=== PATIENT | female | born 1980 | race Caucasian/White ===

== ENCOUNTER 2017-08-21 02:21 | Emergency (ER) | payer OTHER, SELFPAY ==
[2017-08-21 02:35] VITALS: BP 118/75; PULSE 107; RESP 16; TEMP 36.8; BMI 21.4
--- NOTE | 2017-08-21 02:38 | ED_ITS ---
HPI - Female Genitourinary General Chief complaint: Urogenital-Female Stated complaint: RIGHT FLANK PAIN BLOOD IN URINE Time Seen by Provider: 08/21/17 02:30 Source: patient Mode of arrival: ambulatory Limitations: no limitations History of Present Illness HPI Narrative: Otherwise healthy 37-year-old female here for evaluation of which he thinks is a right-sided kidney stone. She states that the pain started had several hours before arrival here to the emergency department. She states it feels like 1 of her prior kidney stones. She states that she has had lithotripsy in the past. Has never had a stent before. Has had some nausea no vomiting. Is breast feeding. Related Data Allergies Allergy/AdvReac Type Severity Reaction Status Date / Time prochlorperazine Allergy Severe ANAPHYLAXIS Verified 08/21/17 02:40 Review of Systems Constitutional Denies chills, Denies fever(s), Denies lethargy and Denies weakness Cardiovascular Denies chest pain, Denies palpitations and Denies dyspnea Respiratory Denies cough and Denies dyspnea Gastrointestinal Gastrointestinal: Denies abdominal pain, Reports diarrhea, Reports nausea and Denies vomiting Genitourinary Denies dysuria, Reports flank pain, Denies urinary incontinence, Denies urinary hesitancy, Denies urinary urgency and Denies vaginal discharge Integumentary/Breasts Denies pruritus and Denies rash Neurologic Denies weakness Endocrine Denies palpitations Hematologic/Lymphatic Denies easy bruising [facility] Surgical History History of third molar tooth extraction History of tonsillectomy Status post appendectomy Status post loop electrosurgical excision procedure (LEEP) of cervix Exam Initial Vital Signs Initial Vital Signs: Vital Signs Temperature 98.2 F 08/21/17 02:35 Pulse Rate 107 H 08/21/17 02:35 Respiratory Rate 16 08/21/17 02:35 Blood Pressure 118/75 08/21/17 02:35 HENMT Head: normal to inspection Resp Effort & Inspection: normal respiratory effort Skin Lesions: no lesions Rashes: no rashes Neuro General: alert, awake and oriented x3 Extrem General: normal to inspection and full ROM Course Orders Ordered: ED Orders 08/21/17 02:55 Basic Metabolic Panel Stat Vital Signs - 8 hr 08/21/17 02:35 Temperature 98.2 F Pulse Rate 107 H Respiratory Rate 16 Blood Pressure 118/75 MDM - Female Genitourinary Lab Data Attestation: I reviewed the patient's lab results. Result diagrams: 08/21/17 02:55 Lab Results 08/21/17 Range/Units 02:55 Sodium 146 H (137-145) mmol/L Potassium 4.1 (3.4-5.1) mmol/L Chloride 106 (98-107) mmol/L Carbon Dioxide 23 (22-32) mmol/L BUN 20 H (7-17) mg/dL Creatinine 0.80 (0.52-1.04) mg/dL Estimated GFR > 60.0 (>60) mL/min BUN/Creatinine Ratio 25.0 H (6-22) Glucose 96 (70-100) mg/dL Calcium 9.6 (8.4-10.2) mg/dL [facility] Narrative Medical decision making narrative: No signs of urinary tract infection. Creatinine is unremarkable. Had a discussion with the patient regarding her symptoms. We did discuss IV medicines to include opioid pain medicines and nonsteroidal anti-inflammatories and also lidocaine. We did talk that all of these medicines are excreted in the breast milk. Informed her that with the opioid pain medication and the nonsteroidal he would probably okay to continue to breast feed however with the lidocaine at would recommend a pump and dump for the next 24 hr. Patient stated that she would rather not receive any IV pain medication because of this. Did offer her oral medicines here which she declined. I offered her an IM injection of Toradol which she declined. Offered nausea medication which she also declined. Will hold on a CT scan seeing his house she has a history of renal stones and this feels like a renal stone to her. Offered patient medication to take at home to include nausea medicine and also pain medication which she declined. Will discharge patient home. Patient was given return precautions. She expressed understanding and agreement with plan Discharge Plan Departure Patient Disposition: Home, Self-Care Clinical Impression: Renal colic Instructions: Kidney Stones -- Adult Activity Restrictions/Additional Instructions: Recommend that you increase your fluid intake. Return to the emergency department for any new symptoms, worsening symptoms, fevers, worsening pain, inability to tolerate oral intake or any other concerning symptoms
[2017-08-21 03:13] LABS: Blood Urea Nitrogen 20 mg/dL (7-17); Calcium 9.6 mg/dL (8.4-10.2); Carbon Dioxide 23 mmol/L (22-32); Chloride 106 mmol/L (98-107); Estimated Glomerular Filt Rate > 60.0 mL/min (>60); Glucose 96 mg/dL (70-100); HEMOLYSIS < 15 (0-50); Potassium 4.1 mmol/L (3.4-5.1); Sodium 146 mmol/L (137-145)
[2017-08-21 04:27] VITALS: BP 102/68; PULSE 81; RESP 16; TEMP 36.7; O2SAT 99
== END 2017-08-21 04:28 | disposition home or self-care (01) ==
PROVIDERS: Emergency Provider Emergency Medicine; Family Provider Family Medicine; PCP Family Medicine
DX: N23 Unspecified renal colic (principal)
CPT/HCPCS: 36415; 80048; 81003; 81025; 99282; 99283

== ENCOUNTER 2017-10-31 10:47 | Day surgery (SDC) | payer OTHER, SELFPAY ==
[2017-10-26 09:24] VITALS: BMI 20.9
[2017-10-31 11:03] VITALS: BP 113/74; PULSE 74; RESP 16; TEMP 36.6; O2SAT 98; BMI 20.9
[2017-10-31] MEDS: LACTATED RINGERS 1,000 ML 100 ML IV (11:27)
--- NOTE | 2017-10-31 12:14 | PM.PREOP ---
Pre-operative Note Interval Note Pre-op Check: Yes History & Physical exam performed today by Physician Changes: No
[2017-10-31] MEDS: MIDAZOLAM 2 MG/2 ML VIAL 1 MG IV (12:42)
--- NOTE | 2017-10-31 13:15 | SUR.OPER ---
Lithotomy on padded OR bed, head on pillow, arms secured on padded arm boards at <90 degrees abduction. Legs secured in padded yellow fins stirrups.
[2017-10-31] MEDS: BUPIVACAINE 0.5% W/ EPI (PF) VIAL 30 ML INJ (13:20)
[2017-10-31 13:37] VITALS: BP 122/80; PULSE 91; RESP 12; TEMP 37.1; O2SAT 96
[2017-10-31 13:42] VITALS: BP 122/80; PULSE 86; RESP 13; TEMP 36.8; O2SAT 98
[2017-10-31] MEDS: OXYCODONE/ACETAMINOPHEN 5/325 TABLET 1 TAB PO (13:55)
[2017-10-31 14:01] VITALS: BP 132/77; PULSE 13; RESP 20; TEMP 36.8; O2SAT 99
[2017-10-31] MEDS: KETOROLAC 30 MG/ML VIAL IV (14:25)
[2017-10-31 14:46] VITALS: BP 106/68; PULSE 52; RESP 12; TEMP 36.6; O2SAT 100
--- NOTE | 2017-11-10 19:08 | P.OP_ITS ---
Operative Date/Time/Diagnoses Date of procedure: 10/31/17 Time of procedure: 13:00 Pre-op diagnosis: Pelvic pain Severe dysmenorrhea Post-op diagnosis: same Procedure: Procedures Operation Date: 10/31/17 12:00 Actual Procedures Side Surgeon p Diagnostic Laparoscopy Not Applicable Haylee Nogueira MD Diagnostic laparoscopy Indications: Pelvic pain Severe dysmenorrhea Surgeon: Haylee Nogueira Anesthesia Type: General Operative Notes Findings: 7 week size slightly retroverted uterus Normal tubes and ovaries Pelvic congestion throughout Adenomyosis of the uterus Normal appendix, gallbladder, and liver Closure Type: primary Specimen(s): none Estimated blood loss (mL): 5 Blood products transfused: none Procedure in detail: After informed consent was obtained, the patient was taken to the operating room where she was placed in the dorsal supine position. After adequate general endotracheal anesthesia was achieved, she was placed in the dorsal lithotomy position, and prepped and draped in the usual sterile fashion. A time-out was performed. A bivalve speculum was placed into the vagina , and the anterior lip of the cervix grasped with a single-tooth tenaculum. The cervical os was sequentially dilated until the Zumi uterine manipulator could pass easily into the endometrial cavity. Single-tooth tenaculum was removed from the anterior lip of the cervix. The bivalve speculum was removed from the vagina. Attention was then turned to the abdomen where 6 cc of 0.5% Marcaine with epinephrine were injected in the umbilical fold. A 5 mm incision was made. The Veress needle was placed into the peritoneal cavity, and its placement confirmed by aspiration drop test. The abdominal cavity was insufflated with 3.1 L of CO2. The Veress needle was removed, and a 5 mm trocar was placed without difficulty. 6 cc of 0.5% Marcaine with epinephrine were injected above the pubic symphysis. A 2nd 5 mm incision was made. A 2nd 5 mm trocar was placed under direct visualization. The probe was used to identify both tubes and ovaries as well as the ovarian fossa. There was no evidence of endometriosis. There were no adhesions. She did have prominent vasculature throughout the pelvis consistent with pelvic congestion. The uterus was soft consistent with adenomyosis. The liver, gallbladder, and appendix were normal. The tubes and ovaries were normal. The instruments were removed from the abdomen. The CO2 was allowed to escape. The incisions were repaired with 4 0 undyed Vicryl in a subcuticular fashion. Steri-Strips, 2 x 2 , and op site were placed. The Zumi uterine manipulator was removed from the uterus. Sponge, lap, and instrument counts were correct x2. The patient tolerated the procedure well, and was taken to PACU in stable condition. Complications: none Post-operative Condition: stable Disposition: PACU Plan for aftercare: Home after recovery
== END 2017-10-31 15:00 | disposition home or self-care (01) ==
PROVIDERS: Family Provider Family Medicine; PCP Family Medicine; Visit Provider Obstetrics & Gynecology
PROC: (CPT 49320; principal; 2017-10-31 12:00)
DX: N94.6 Dysmenorrhea, unspecified (principal)
CPT/HCPCS: 49320; J0330; J1100; J1885; J2250; J2405; J2704; J3010

== ENCOUNTER 2018-04-19 23:38 | Emergency (ER) | payer OTHER, SELFPAY ==
[2018-04-20] MEDS: KETOROLAC 60 MG/2 ML VIAL 30 MG IV (00:01)
[2018-04-20] MEDS: ONDANSETRON 4 MG/2 ML INJ IV (00:02)
[2018-04-20] MEDS: SODIUM CHLORIDE 0.9% 1,000 ML 1000 ML IV ×2 (00:02→01:00)
[2018-04-20 00:12] LABS: Add Manual Diff / Slide Review NO; Basophils Absolute Auto 100 /uL (0-100); Basophils Percent Auto 0.7 % (0-2); Eosinophils Absolute Auto 100 /uL (0-450); Eosinophils Percent Auto 0.6 % (2-4); Hematocrit 43.8 % (36-46); Hemoglobin 14.7 g/dL (12.0-16.0); Lymphocytes Absolute Auto 3000 /uL (1100-4500); Lymphocytes Percent Auto 34.3 % (25-40); Mean Corpuscular HGB Conc 33.6 % (30-36); Mean Corpuscular Hemoglobin 32.1 PG (26-34); Mean Corpuscular Volume 95.3 fL (80-100); Monocytes Absolute Auto 500 /uL (0-900); Neutrophils Absolute Auto 5000 /uL (1500-7000); Neutrophils Percent Auto 58.4 % (50-75); Platelet Count 409 X10^3/uL (150-400); Red Blood Cell Count 4.59 X10^6/uL (4.0-5.2); Red Cell Distribution Width 13.1 % (11.6-14.8); White Blood Cell Count 8.6 X10^3/uL (4.5-11.0)
[2018-04-20 00:18] LABS: Alanine Aminotransferase 21 IU/L (9-52); Albumin 5.1 g/dL (3.5-5.0); Albumin Globulin Ratio 1.5 (1.0-2.8); Alkaline Phosphatase 42 U/L (38-126); Aspartate Aminotransferase 27 IU/L (14-36); BUN Creatinine Ratio 18.8 (6-22); Bilirubin Total 0.3 mg/dL (0.2-1.3); Blood Urea Nitrogen 15 mg/dL (7-17); Calcium 9.5 mg/dL (8.4-10.2); Carbon Dioxide 25 mmol/L (22-32); Chloride 108 mmol/L (98-107); Estimated Glomerular Filt Rate > 60.0 mL/min (>60); Globulin 3.5 g/dL (1.7-4.1); Glucose 118 mg/dL (70-100); HEMOLYSIS 22 (0-50); Lipase 84 U/L (23-300); Potassium 3.7 mmol/L (3.4-5.1); Sodium 148 mmol/L (137-145); Total Protein 8.6 g/dL (6.3-8.2)
[2018-04-20] MEDS: LORazepam 2 MG/ML SYRINGE 0.5 MG IV (00:26)
[2018-04-20] MEDS: SODIUM CHLORIDE 0.9% IV (00:27)
[2018-04-20] MEDS: LIDOCAINE 2% IV (00:27)
--- NOTE | 2018-04-20 00:33 | ED.BACK ---
HPI - Back Pain/Injury General Chief Complaint: Back Pain/Injury Stated Complaint: KIDNEY PAIN X1 HOUR Time Seen by Provider: 04/19/18 23:42 Source: patient Mode of arrival: ambulatory Limitations: no limitations History of Present Illness HPI Narrative: Patient is a 37-year-old female who presents with right flank pain. She has a history of kidney stones of this feels like a kidney stone. She is unable to find any comfortable position this started suddenly this evening. She has thrown up 3 times prior to arrival. She is admits to drinking alcohol also prior to arrival. Denies any fever painful frequent urination. No medications prior to arrival MD Complaint: back pain (Right flank) Related Data Home Medications Medication Instructions Recorded Confirmed No Known Home Medications 10/24/17 Previous Rx's Medication Instructions Recorded oxycodone-acetaminophen [Percocet] 2 tab PO Q4-6H PRN #20 tab 10/31/17 Allergies Allergy/AdvReac Type Severity Reaction Status Date / Time prochlorperazine Allergy Intermediate Hallucinati Verified 10/31/17 11:26 ng Review of Systems Review of Systems ROS Unobtainable: All systems reviewed & are unremarkable except as noted in HPI and below Constitutional Denies chills, Denies fever(s), Denies lethargy and Denies weakness Cardiovascular Denies chest pain, Denies irregular heart rhythm, Denies lightheadedness, Denies palpitations, Denies dyspnea, Denies dyspnea on exertion and Denies orthopnea Respiratory Denies cough, Denies dyspnea, Denies dyspnea on exertion and Denies wheezing Genitourinary Reports as per HPI Integumentary/Breasts Denies pruritus, Denies erythema, Denies rash and Denies wounds Neurologic Denies weakness Endocrine Denies palpitations Allergic/Immunologic Denies wheezing [facility] Medical History Anxiety (Acute) Depression (Acute) Exercise-induced asthma (Acute) Kidney stone on right side (Acute) Severe dysmenorrhea (Acute) Surgical History History of third molar tooth extraction (Resolved) History of tonsillectomy (Resolved) Status post appendectomy (Resolved) Status post loop electrosurgical excision procedure (LEEP) of cervix (Resolved) Social History marital status: household members: family Smoking Status: Never smoker alcohol intake: current substance use type: does not use Social History marital status: household members: family Smoking Status: Never smoker alcohol intake: current substance use type: does not use Exam Initial Vital Signs Initial Vital Signs: Vital Signs Pulse Rate 60 04/20/18 00:46 Respiratory Rate 20 04/20/18 00:46 Blood Pressure 99/65 04/20/18 00:46 Pulse Oximetry 94 04/20/18 00:46 GENERAL: Patient tearful pacing room unable to sit holding right side HEENT: Head atraumatic,EOMI, pupils reactive, CARDIOVASCULAR: Regular rate and rhythm without murmurs, rubs or gallops. RESPIRATORY: Breath sounds equal bilaterally, no wheezes rales or rhonchi. ABDOMEN: Soft, nontender. Normoactive bowel sounds all 4 quadrants. No guarding or rebound. : Tender right CVA EXTREMITIES: Normal range of motion, no clubbing or edema. Neurovascularly intact NEUROLOGICAL: Alert and oriented x4.Normal gait and speech. Cranial nerves II through XII grossly intact. SKIN: Warm, dry, no laceration, no petechiae, no rashes or lesions. Course Orders Ordered: ED Orders 04/19/18 23:50 Complete Blood Count AUTO DIFF Stat Comprehensive Metabolic Panel Stat Lipase Stat Discontinued Medications Sodium Chloride (Normal Saline 0.9%) 1,000 mls @ 1,000 mls/hr IV CONT ARNAV Last Infusion: 04/20/18 01:07 Dose: 1,000 mls/hr Admin: 04/20/18 00:02 Dose: 1,000 mls/hr Lidocaine HCl 4.1 ml/ Sodium (Chloride) 54.1 mls @ 324.6 mls/hr IV NOW ONE Stop: 04/20/18 00:22 Last Infusion: 04/20/18 00:47 Dose: 324.6 mls/hr Admin: 04/20/18 00:27 Dose: 324.6 mls/hr Sodium Chloride (Normal Saline 0.9%) 1,000 mls @ 1,000 mls/hr IV BOLUS ONE Stop: 04/20/18 01:47 Last Infusion: 04/20/18 02:50 Dose: 1,000 mls/hr Admin: 04/20/18 01:00 Dose: 1,000 mls/hr Ketorolac Tromethamine (Toradol) 30 mg IV NOW ONE Stop: 04/19/18 23:47 Last Admin: 04/20/18 00:01 Dose: 30 mg Lorazepam (Ativan) 0.5 mg IV NOW ONE Stop: 04/20/18 00:22 Last Admin: 04/20/18 00:26 Dose: 0.5 mg Ondansetron HCl (Zofran) 4 mg IV NOW ONE Stop: 04/19/18 23:47 Last Admin: 04/20/18 00:02 Dose: 4 mg Vital Signs - 8 hr 04/20/18 00:46 04/20/18 02:51 Pulse Rate 60 60 Respiratory Rate 20 14 Blood Pressure 96/51 L Blood Pressure [Left Arm] 99/65 Pulse Oximetry 94 99 MDM - Back Pain/Injury Lab Data Attestation: I reviewed the patient's lab results. Result diagrams: 04/19/18 23:50 04/19/18 23:50 Lab Results 04/19/18 04/19/18 Range/Units 23:50 23:50 WBC 8.6 (4.5-11.0) X10^3/uL RBC 4.59 (4.0-5.2) X10^6/uL Hgb 14.7 (12.0-16.0) g/dL Hct 43.8 (36-46) % MCV 95.3 (80-100) fL MCH 32.1 (26-34) PG MCHC 33.6 (30-36) % RDW 13.1 (11.6-14.8) % Plt Count 409 H (150-400) X10^3/uL Neut % (Auto) 58.4 (50-75) % Lymph % (Auto) 34.3 (25-40) % [place] % (Auto) 6.0 (3-14) % Eos % (Auto) 0.6 L (2-4) % Baso % (Auto) 0.7 (0-2) % Neut # (Auto) 5000 (9382-1275) /uL Lymph # (Auto) 3000 (6868-9604) /uL [place] # (Auto) 500 (0-900) /uL Eos # (Auto) 100 (0-450) /uL Baso # (Auto) 100 (0-100) /uL Sodium 148 H (137-145) mmol/L Potassium 3.7 (3.4-5.1) mmol/L Chloride 108 H (98-107) mmol/L Carbon Dioxide 25 (22-32) mmol/L BUN 15 (7-17) mg/dL Creatinine 0.80 (0.52-1.04) mg/dL Estimated GFR > 60.0 (>60) mL/min BUN/Creatinine Ratio 18.8 (6-22) Glucose 118 H (70-100) mg/dL Calcium 9.5 (8.4-10.2) mg/dL Total Bilirubin 0.3 (0.2-1.3) mg/dL AST 27 (14-36) IU/L ALT 21 (9-52) IU/L Alkaline Phosphatase 42 (38-126) U/L Total Protein 8.6 H (6.3-8.2) g/dL Albumin 5.1 H (3.5-5.0) g/dL Globulin 3.5 (1.7-4.1) g/dL Albumin/Globulin Ratio 1.5 (1.0-2.8) Lipase 84 (23-300) U/L MDM Narrative Medical decision making narrative: Patient has known history of kidney stones. This feels like all previous kidney stones this 1 May be a little bit worse. Toradol did not help she really is unable to get comfortable. She does not respond well to narcotic medications it would prefer not to have those. He he is given Ativan to help calm her his which she responded well to it and IV lidocaine. No patient is sleeping and has received 2 L of IV fluid. Patient sleeping for a few hours she does arouse with Ativan still slightly drowsy but able to stand wants to go home and sleep in her own bed. Discharge Plan Departure Patient Disposition: Home Clinical Impression: Renal colic on right side Discharge Date/Time: 04/20/18 02:51 Interventions: ED Discharge Assessment Last Done: 04/20/18 02:51 Instructions: DI for Kidney Stones Activity Restrictions/Additional Instructions: *You have been diagnosed with kidney stone *What to do: Increase fluid intake *Continue to take medications as directed Motrin 800 mg every 8 hr if needed for pain *Follow up with your primary care provider in 2-3 days *Return to ER if you should have any new, worsening or concerning symptoms Prescriptions: No Action No Known Home Medications RF: 0 oxycodone-acetaminophen [Percocet] 5-325 mg tablet 2 tab PO Q4-6H PRN (Reason: pain) Qty: 20 RF: 0 Referrals: Lilia Evans MD [Primary Care Provider] -
[2018-04-20 00:46] VITALS: BP 99/65; PULSE 60; RESP 20; O2SAT 94
--- NOTE | 2018-04-20 01:11 | PC.NURSE ---
Pt states Right Flank pain with N/V onset 2144, feels like kidney stone, hx of kidney stones. Pt is unable to remain still or find position of comfort. Denies fever, or frequent painful urination. Pt states she had been drinking alchol prior to arrival and denies taking any medications.
[2018-04-20 02:51] VITALS: BP 96/51; PULSE 60; RESP 14; O2SAT 99
== END 2018-04-20 02:51 | disposition home or self-care (01) ==
PROVIDERS: Emergency Provider Emergency Medicine; Family Provider Family Medicine; PCP Family Medicine
DX: N23 Unspecified renal colic (principal)
CPT/HCPCS: 36591; 80053; 83690; 85025; 96361; 96374; 96375; 99283; 99284; J1885; J2060; J2405

== ENCOUNTER 2018-06-30 22:42 | Emergency (ER) | payer OTHER, SELFPAY ==
[2018-06-30 22:40] VITALS: BP 136/92; PULSE 124; RESP 20; TEMP 36.3; O2SAT 98; BMI 20.5
--- NOTE | 2018-06-30 22:47 | ED_ITS ---
HPI - Female Genitourinary General Chief complaint: Urogenital-Female Stated complaint: Kidney Stones Time Seen by Provider: 06/30/18 22:42 Source: patient Mode of arrival: EMS Limitations: no limitations History of Present Illness HPI Narrative: 38-year-old female with a stated history of kidney stones. She states that she was at work function this evening. She did admit to having some alcohol. She states she had a sudden onset of right-sided pain consistent with a prior history of kidney stones. She arrived by EMS. Received pain medication by EMS. She states that she reported that this did improve her symptoms somewhat however they are starting to return. She stated that in the past she has had to have lithotripsy however that was many years ago and since then she has passed all of her prior stones. Related Data Home Medications Medication Instructions Recorded Confirmed No Known Home Medications 10/24/17 Allergies Allergy/AdvReac Type Severity Reaction Status Date / Time prochlorperazine Allergy Intermediate Hallucinati Verified 10/31/17 11:26 ng Review of Systems Constitutional Denies fever(s) and Denies headache(s) ENT Ears, Nose, Mouth, and Throat: Denies headache(s) Cardiovascular Denies chest pain and Denies dyspnea Respiratory Denies dyspnea Gastrointestinal Gastrointestinal: Denies abdominal pain and Reports nausea Genitourinary Reports flank pain and Reports urinary urgency Musculoskeletal Denies myalgias and Denies arthralgias Integumentary/Breasts Denies rash Neurologic Denies headache(s) Allergic/Immunologic Denies urticaria [facility] Medical History Anxiety (Acute) Depression (Acute) Exercise-induced asthma (Acute) Kidney stone on right side (Acute) Severe dysmenorrhea (Acute) Surgical History History of third molar tooth extraction (Resolved) History of tonsillectomy (Resolved) Status post appendectomy (Resolved) Status post loop electrosurgical excision procedure (LEEP) of cervix (Resolved) Social History marital status: household members: family Smoking Status: Never smoker alcohol intake: current substance use type: does not use Social History marital status: household members: family Smoking Status: Never smoker alcohol intake: current substance use type: does not use Exam Initial Vital Signs Initial Vital Signs: Vital Signs Temperature 97.4 F L 06/30/18 22:40 Pulse Rate 124 H 06/30/18 22:40 Respiratory Rate 20 06/30/18 22:40 Blood Pressure 136/92 H 06/30/18 22:40 Pulse Oximetry 98 06/30/18 22:40 Const General: cooperative, No comfortable (Uncomfortable) and well developed Orientation: alert and awake HENMT Head: normal to inspection and normocephalic Resp Effort & Inspection: normal respiratory effort Cardio Rate: tachycardic Back/Spine/Pelvis Back: CVA tenderness right Skin Lesions: no lesions Rashes: no rashes Neuro General: alert and awake Cognition: normal cognition Psych Appearance: grossly normal and well kempt Course Orders Ordered: ED Orders 06/30/18 22:58 Complete Blood Count AUTO DIFF Stat Comprehensive Metabolic Panel Stat Lipase Stat Discontinued Medications Lidocaine HCl 4.1 ml/ Sodium (Chloride) 54.1 mls @ 324.6 mls/hr IV NOW ONE Stop: 06/30/18 22:47 Last Infusion: 06/30/18 23:44 Dose: 0 mls/hr Admin: 06/30/18 23:14 Dose: 324.6 mls/hr Sodium Chloride (Normal Saline 0.9%) 1,000 mls @ 1,000 mls/hr IV BOLUS ONE Stop: 07/01/18 00:44 Last Infusion: 07/01/18 01:59 Dose: 0 mls/hr Admin: 06/30/18 23:46 Dose: 1,000 mls/hr Ketorolac Tromethamine (Toradol) 30 mg IV NOW ONE Stop: 06/30/18 22:47 Last Admin: 06/30/18 23:01 Dose: 30 mg Lorazepam (Ativan) 0.5 mg PO NOW ONE Stop: 07/01/18 01:38 Last Admin: 07/01/18 01:58 Dose: 0.5 mg Morphine Sulfate (Morphine) 2 mg IV NOW ONE Stop: 07/01/18 01:07 Last Admin: 07/01/18 01:12 Dose: 2 mg Vital Signs - 8 hr 07/01/18 00:00 07/01/18 02:00 07/01/18 05:33 Pulse Rate 98 H 99 H 99 H Respiratory Rate 18 16 18 Blood Pressure [Left Arm] 120/70 118/70 115/67 Pulse Oximetry 98 98 98 MDM - Female Genitourinary Lab Data Attestation: I reviewed the patient's lab results. Result diagrams: 06/30/18 22:58 06/30/18 22:58 Lab Results 06/30/18 06/30/18 Range/Units 22:58 22:58 WBC 8.1 (4.5-11.0) X10^3/uL RBC 4.66 (4.0-5.2) X10^6/uL Hgb 15.2 (12.0-16.0) g/dL Hct 44.7 (36-46) % MCV 95.9 (80-100) fL MCH 32.5 (26-34) PG MCHC 34.0 (30-36) % RDW 12.9 (11.6-14.8) % Plt Count 367 (150-400) X10^3/uL Neut % (Auto) 72.2 (50-75) % Lymph % (Auto) 21.5 L (25-40) % [place] % (Auto) 5.4 (3-14) % Eos % (Auto) 0.2 L (2-4) % Baso % (Auto) 0.7 (0-2) % Neut # (Auto) 5900 (2045-3942) /uL Lymph # (Auto) 1700 (4017-0814) /uL [place] # (Auto) 400 (0-900) /uL Eos # (Auto) 0 (0-450) /uL Baso # (Auto) 100 (0-100) /uL Sodium 143 (137-145) mmol/L Potassium 4.0 (3.4-5.1) mmol/L Chloride 106 (98-107) mmol/L Carbon Dioxide 24 (22-32) mmol/L BUN 14 (7-17) mg/dL Creatinine 0.70 (0.52-1.04) mg/dL Estimated GFR > 60.0 (>60) mL/min BUN/Creatinine Ratio 20.0 (6-22) Glucose 107 H (70-100) mg/dL Calcium 9.1 (8.4-10.2) mg/dL Total Bilirubin 0.3 (0.2-1.3) mg/dL AST 26 (14-36) IU/L ALT 19 (9-52) IU/L Alkaline Phosphatase 51 (38-126) U/L Total Protein 8.5 H (6.3-8.2) g/dL Albumin 5.1 H (3.5-5.0) g/dL Globulin 3.4 (1.7-4.1) g/dL Albumin/Globulin Ratio 1.5 (1.0-2.8) Lipase 99 (23-300) U/L Urine Dip Bedside Urine Glucose Negative Bedside Urine Bilirubin - Negative Bedside Urine Ketone - Negative Urine Specific [place] 1.015 Bedside Urine Occult Blood - Negative Bedside Urine pH 6.0 Bedside Urine Protein - Negative Bedside Urine Urobilinogen - Negative Bedside Urine Nitrite - Negative Bedside Urine Leukocytes - Negative Esterase MDM Narrative Medical decision making narrative: Patient was given Toradol and lidocaine here in the emergency department and she reported improvement of her symptoms. It then returned. She was given some pain medication which improved her symptoms for short period of time. She was then given oral Ativan to see if this did not help. She does have a history of kidney stones. She states this feels like kidney stones. Given the lack of infection in her urine and a normal kidney function we decided to hold on any CT scan. Patient did sleep here in the em ergency department overnight. Her pain continued to improve. Discharge Plan Departure Patient Disposition: Home Clinical Impression: Renal colic on right side Instructions: DI for Kidney Stones, DI for Flank Pain Activity Restrictions/Additional Instructions: Contact your primary care doctor for a follow-up. Return to the emergency department for any new or worsening symptoms. you can take ibuprofen. Prescriptions: No Action No Known Home Medications RF: 0 Referrals: Lilia Evans MD [Primary Care Provider] -
[2018-06-30] MEDS: KETOROLAC 60 MG/2 ML VIAL 30 MG IV (23:01)
[2018-06-30 23:12] LABS: Add Manual Diff / Slide Review NO; Basophils Absolute Auto 100 /uL (0-100); Basophils Percent Auto 0.7 % (0-2); Eosinophils Absolute Auto 0 /uL (0-450); Eosinophils Percent Auto 0.2 % (2-4); Hematocrit 44.7 % (36-46); Hemoglobin 15.2 g/dL (12.0-16.0); Lymphocytes Absolute Auto 1700 /uL (1100-4500); Lymphocytes Percent Auto 21.5 % (25-40); Mean Corpuscular Hemoglobin 32.5 PG (26-34); Mean Corpuscular Volume 95.9 fL (80-100); Monocytes Absolute Auto 400 /uL (0-900); Monocytes Percent Auto 5.4 % (3-14); Neutrophils Absolute Auto 5900 /uL (1500-7000); Neutrophils Percent Auto 72.2 % (50-75); Platelet Count 367 X10^3/uL (150-400); Red Blood Cell Count 4.66 X10^6/uL (4.0-5.2); Red Cell Distribution Width 12.9 % (11.6-14.8); White Blood Cell Count 8.1 X10^3/uL (4.5-11.0)
[2018-06-30] MEDS: LIDOCAINE 2% IV (23:14)
[2018-06-30] MEDS: SODIUM CHLORIDE 0.9% IV (23:14)
[2018-06-30 23:22] LABS: Alanine Aminotransferase 19 IU/L (9-52); Albumin 5.1 g/dL (3.5-5.0); Albumin Globulin Ratio 1.5 (1.0-2.8); Alkaline Phosphatase 51 U/L (38-126); Aspartate Aminotransferase 26 IU/L (14-36); Bilirubin Total 0.3 mg/dL (0.2-1.3); Blood Urea Nitrogen 14 mg/dL (7-17); Calcium 9.1 mg/dL (8.4-10.2); Carbon Dioxide 24 mmol/L (22-32); Chloride 106 mmol/L (98-107); Estimated Glomerular Filt Rate > 60.0 mL/min (>60); Globulin 3.4 g/dL (1.7-4.1); Glucose 107 mg/dL (70-100); HEMOLYSIS < 15 (0-50); Lipase 99 U/L (23-300); Sodium 143 mmol/L (137-145); Total Protein 8.5 g/dL (6.3-8.2)
[2018-06-30] MEDS: SODIUM CHLORIDE 0.9% 1,000 ML 1000 ML IV (23:46)
[2018-07-01] VITALS: BP 120/70; PULSE 98; RESP 18; O2SAT 98
[2018-07-01] MEDS: MORPHINE 4 MG/ML INJ 2 MG IV (01:12)
[2018-07-01] MEDS: LORazepam 0.5 MG TABLET PO (01:58)
[2018-07-01 02:00] VITALS: BP 118/70; PULSE 99; RESP 16; O2SAT 98
--- NOTE | 2018-07-01 03:00 | PC.NURSE ---
Pt resting with eyes closed. Arouses to verbal stimuli.
[2018-07-01 05:33] VITALS: BP 115/67; PULSE 99; RESP 18; O2SAT 98
--- NOTE | 2018-07-01 05:34 | PC.NURSE ---
Pt requested to be called, no answer.
== END 2018-07-01 06:44 | disposition home or self-care (01) ==
PROVIDERS: Emergency Provider Emergency Medicine; PCP Family Medicine
DX: N23 Unspecified renal colic (principal)
CPT/HCPCS: 36415; 80053; 81003; 83690; 85025; 96361; 96365; 96375; 99283; 99284; J1885; J2270

== ENCOUNTER 2018-08-09 20:42 | Emergency (ER) | payer OTHER, SELFPAY ==
[2018-08-09 20:49] VITALS: BP 121/86; PULSE 78; RESP 18; TEMP 36.6; O2SAT 98
--- NOTE | 2018-08-09 21:29 | ED_ITS ---
HPI - Abdominal Pain General Chief Complaint: Abdominal Pain Stated Complaint: ABD PAIN Time Seen by Provider: 08/09/18 21:16 Source: patient Mode of arrival: ambulatory Limitations: no limitations History of Present Illness HPI narrative: Patient is a 38-year-old female. Here for evaluation of bilateral lower abdominal/pelvic pain. Patient is not currently on control. She states that yesterday she finished her menstrual cycle. She states that today she had a fairly sudden onset of bilateral lower abdominal pain and then vaginal bleeding. She states she has soaked through 3 pads over the past several hours. Did have couple episodes of diarrhea earlier today. No urinary symptoms. No vomiting. Related Data Home Medications Medication Instructions Recorded Confirmed No Known Home Medications 10/24/17 Allergies Allergy/AdvReac Type Severity Reaction Status Date / Time prochlorperazine Allergy Intermediate Hallucinati Verified 10/31/17 11:26 ng Review of Systems Constitutional Denies fever(s) Cardiovascular Denies chest pain and Denies dyspnea Respiratory Denies dyspnea Gastrointestinal Gastrointestinal: Reports abdominal pain, Reports diarrhea and Denies vomiting Genitourinary Reports dysuria (Earlier today but that is resolved), Reports pelvic pain and Reports vaginal discharge Musculoskeletal Reports back pain (Lower back) Integumentary/Breasts Denies rash Hematologic/Lymphatic Denies easy bleeding and Denies easy bruising [facility] Medical History Anxiety (Acute) Depression (Acute) Exercise-induced asthma (Acute) Kidney stone on right side (Acute) Severe dysmenorrhea (Acute) Surgical History History of third molar tooth extraction (Resolved) History of tonsillectomy (Resolved) Status post appendectomy (Resolved) Status post loop electrosurgical excision procedure (LEEP) of cervix (Resolved) Social History marital status: household members: family Smoking Status: Never smoker alcohol intake: current substance use type: does not use Social History marital status: household members: family Smoking Status: Never smoker alcohol intake: current substance use type: does not use Exam Initial Vital Signs Initial Vital Signs: Vital Signs Temperature 97.8 F 08/09/18 20:49 Pulse Rate 78 08/09/18 20:49 Respiratory Rate 18 08/09/18 20:49 Blood Pressure 121/86 08/09/18 20:49 Pulse Oximetry 98 08/09/18 20:49 Const General: cooperative and well groomed Orientation: alert, awake and oriented x3 HENMT Head: normal to inspection and normocephalic Resp Effort & Inspection: normal respiratory effort Auscultation: clear to auscultation bilaterally Cardio Rate: regular rate Rhythm: regular rhythm GI Inspection: non-distended Palpation: soft, No firm and tender (Lower abdomen/adnexa bilateral) Skin Lesions: no lesions Rashes: no rashes Neuro General: alert and awake Cognition: normal cognition Speech: speech normal Extrem General: normal to inspection and capillary refill normal Psych Appearance: grossly normal and well kempt Course Orders Ordered: ED Orders 08/09/18 21:20 Complete Blood Count AUTO DIFF Stat Comprehensive Metabolic Panel Stat Lipase Stat 08/09/18 21:36 US pelvic complete Stat 08/09/18 22:18 Urine Culture Stat Urine Microscopic Stat Discontinued Medications Sodium Chloride (Normal Saline 0.9%) 1,000 mls @ 1,000 mls/hr IV BOLUS ONE Stop: 08/09/18 22:34 Last Infusion: 08/09/18 22:40 Dose: 0 mls/hr Admin: 08/09/18 21:48 Dose: 1,000 mls/hr Ketorolac Tromethamine (Toradol) 15 mg IV NOW ONE Stop: 08/09/18 22:36 Last Admin: 08/09/18 22:40 Dose: 15 mg Morphine Sulfate (Morphine) 4 mg IV NOW ONE Stop: 08/09/18 21:36 Last Admin: 08/09/18 21:48 Dose: 4 mg Ondansetron HCl (Zofran) 4 mg IV NOW ONE Stop: 08/09/18 21:53 Last Admin: 08/09/18 21:53 Dose: 4 mg Vital Signs - 8 hr 08/09/18 20:49 08/09/18 22:30 Temperature 97.8 F Pulse Rate 78 78 Respiratory Rate 18 16 Blood Pressure 121/86 Blood Pressure [Left Arm] 127/80 Pulse Oximetry 98 100 MDM - Abdominal Pain Medical Records Attestation: I reviewed the patient's medical records. Lab Data Attestation: I reviewed the patient's lab results. Result diagrams: 08/09/18 21:20 08/09/18 21:20 Lab Results 08/09/18 08/09/18 08/09/18 Range/Units 21:20 21:20 22:18 WBC 7.9 (4.5-11.0) X10^3/uL RBC 4.36 (4.0-5.2) X10^6/uL Hgb 14.3 (12.0-16.0) g/dL Hct 41.2 (36-46) % MCV 94.5 (80-100) fL MCH 32.9 (26-34) PG MCHC 34.8 (30-36) % RDW 13.0 (11.6-14.8) % Plt Count 360 (150-400) X10^3/uL Neut % (Auto) 62.4 (50-75) % Lymph % (Auto) 29.0 (25-40) % [place] % (Auto) 7.0 (3-14) % Eos % (Auto) 0.8 L (2-4) % Baso % (Auto) 0.8 (0-2) % Neut # (Auto) 4900 (0724-8481) /uL Lymph # (Auto) 2300 (1663-2927) /uL [place] # (Auto) 600 (0-900) /uL Eos # (Auto) 100 (0-450) /uL Baso # (Auto) 100 (0-100) /uL Sodium 143 (137-145) mmol/L Potassium 3.9 (3.4-5.1) mmol/L Chloride 107 (98-107) mmol/L Carbon Dioxide 22 (22-32) mmol/L BUN 16 (7-17) mg/dL Creatinine 0.80 (0.52-1.04) mg/dL Estimated GFR > 60.0 (>60) mL/min BUN/Creatinine Ratio 20.0 (6-22) Glucose 93 (70-100) mg/dL Calcium 9.9 (8.4-10.2) mg/dL Total Bilirubin 0.5 (0.2-1.3) mg/dL AST 26 (14-36) IU/L ALT 15 (9-52) IU/L Alkaline Phosphatase 46 (38-126) U/L Total Protein 8.0 (6.3-8.2) g/dL Albumin 4.8 (3.5-5.0) g/dL Globulin 3.2 (1.7-4.1) g/dL Albumin/Globulin Ratio 1.5 (1.0-2.8) Lipase 93 (23-300) U/L Urine RBC 0-1/hpf (0-5/HPF) Urine WBC 1-5/hpf (0-5/HPF) Ur Squamous Epith Cells 1-5 /hpf (0-5/HPF) Urine Bacteria Many (>30) H (None) Ur Culture Indicated? Specimen cultured Point of care testing: Point of Care Testing Test Results Negative Urine Dip Bedside Urine Glucose Negative Bedside Urine Bilirubin - Negative Bedside Urine Ketone - Negative Urine Specific [place] 1.025 Bedside Urine Occult Blood + Bedside Urine pH 6.0 Bedside Urine Protein - Negative Bedside Urine Urobilinogen - Negative Bedside Urine Nitrite - Negative Bedside Urine Leukocytes + 70 Esterase Imaging Data US - abdomen: Radiologist's impression: Mildly prominent follicles in bilateral ovaries. Larger 1.1 cm on the left. Internal echoes in these follicles is felt to be artifactual. If symptoms persist close follow-up in 60 weeks is recommended for re-evaluation. MDM Narrative Medical decision making narrative: Patient's labs unremarkable. She does have bacteria in her urine did have some dysuria earlier today however there is no other signs of a urinary tract infection. Will wait for the culture to results before starting any antibiotics. Patient was informed that a culture was pending and that we would call if any antibiotics are needed. The ultrasound was unremarkable. Patient reported an improvement in her symptoms after Toradol. She has had dysmenorrhea in the past according to review of the notes. test is negative. I feel that her symptoms are adnexal and not abdominal. She has had an appendectomy in the past. Will hold on a CT scan of the abdomen for now. Will hold on further workup. Patient was given return precautions and follow-up instructions. She expressed understanding and agreement with plan. Discharge Plan Departure Patient Disposition: Home Clinical Impression: Pelvic pain, Vaginal bleeding Discharge Date/Time: 08/09/18 23:15 Interventions: ED Discharge Assessment Last Done: 08/09/18 23:17 Instructions: DI for Pelvic Pain Activity Restrictions/Additional Instructions: The ultrasound here in the emergency department was unremarkable for any acute issues. You did have bacteria in her urine. A urine culture is pending at the time of your discharge. We will call you for any positive results. I do recommend that you contact your primary provider and also your customer engineering specialist provider. Return to the emergency department for any new or worsening symptoms. Prescriptions: No Action No Known Home Medications RF: 0 Referrals: Lilia Evans MD [Primary Care Provider] -
--- NOTE | 2018-08-09 21:36 | DI.US.S_ITS ---
PROCEDURE: US PELVIC COMPLETE INDICATIONS: VAGINAL BLEEDING; PAIN TECHNIQUE: Real-time scanning was performed of the pelvic organs, with image documentation. Additional endovaginal scanning was necessary due to incomplete visualization of the adnexal and endometrial structures by transabdominal scanning. COMPARISON: [facility], , PELVIC COMPLETE, 10/02/2013, 8:33. FINDINGS: Transabdominal scanning: Limited scanning through the kidneys shows no hydronephrosis. No pathologic free abdominal or pelvic fluid. Endovaginal scanning: Uterus: Uterus is normal in size at 8.7 x 3.6 x 5.1 cm. The endometrium measures 5.4 mm in combined thickness. Ovaries: Normal ovary measuring 2.9 x 1.1 x 1.9 cm on the right and 3.3 x 1.4 x 1.5 cm on the left. No adnexal masses. IMPRESSION: No source for menorrhagia identified. Dictated by: Kike ROCA Interpreted: Julien Harper MD on 08/10/2018 at 8:47 Approved by: Julien Harper M.D. on 08/10/2018 at 11:38
[2018-08-09 21:43] LABS: Add Manual Diff / Slide Review NO; Basophils Absolute Auto 100 /uL (0-100); Basophils Percent Auto 0.8 % (0-2); Eosinophils Absolute Auto 100 /uL (0-450); Eosinophils Percent Auto 0.8 % (2-4); Hematocrit 41.2 % (36-46); Hemoglobin 14.3 g/dL (12.0-16.0); Lymphocytes Absolute Auto 2300 /uL (1100-4500); Mean Corpuscular HGB Conc 34.8 % (30-36); Mean Corpuscular Hemoglobin 32.9 PG (26-34); Mean Corpuscular Volume 94.5 fL (80-100); Monocytes Absolute Auto 600 /uL (0-900); Neutrophils Absolute Auto 4900 /uL (1500-7000); Neutrophils Percent Auto 62.4 % (50-75); Platelet Count 360 X10^3/uL (150-400); Red Blood Cell Count 4.36 X10^6/uL (4.0-5.2); White Blood Cell Count 7.9 X10^3/uL (4.5-11.0)
[2018-08-09 21:48] LABS: Alanine Aminotransferase 15 IU/L (9-52); Albumin 4.8 g/dL (3.5-5.0); Albumin Globulin Ratio 1.5 (1.0-2.8); Alkaline Phosphatase 46 U/L (38-126); Aspartate Aminotransferase 26 IU/L (14-36); Bilirubin Total 0.5 mg/dL (0.2-1.3); Blood Urea Nitrogen 16 mg/dL (7-17); Calcium 9.9 mg/dL (8.4-10.2); Carbon Dioxide 22 mmol/L (22-32); Chloride 107 mmol/L (98-107); Estimated Glomerular Filt Rate > 60.0 mL/min (>60); Globulin 3.2 g/dL (1.7-4.1); Glucose 93 mg/dL (70-100); HEMOLYSIS < 15 (0-50); Lipase 93 U/L (23-300); Potassium 3.9 mmol/L (3.4-5.1); Sodium 143 mmol/L (137-145)
[2018-08-09] MEDS: MORPHINE 4 MG/ML INJ IV (21:48)
[2018-08-09] MEDS: SODIUM CHLORIDE 0.9% 1,000 ML 1000 ML IV (21:48)
[2018-08-09] MEDS: ONDANSETRON 4 MG/2 ML INJ IV (21:53)
[2018-08-09 22:30] VITALS: BP 127/80; PULSE 78; RESP 16; O2SAT 100
[2018-08-09] MEDS: KETOROLAC 60 MG/2 ML VIAL 15 MG IV (22:40)
[2018-08-09 22:45] LABS: Bacteria Urine Many (>30); Culture Indicated Urine Specimen Cultured; RBC Urine 0-1/HPF (0-5/HPF); Squamous Epithelial Cell Urine 1-5 /HPF (0-5/HPF); WBC Urine 1-5/HPF (0-5/HPF)
== END 2018-08-09 23:15 | disposition home or self-care (01) ==
PROVIDERS: Emergency Provider Emergency Medicine; PCP Family Medicine
DX: R10.2 Pelvic and perineal pain (principal); N93.9 Abnormal uterine and vaginal bleeding, unspecified
CPT/HCPCS: 36591; 76830; 76856; 80053; 81003; 81015; 81025; 83690; 85025; 87077; 87086; 96361; 96374; 96375; 99283; 99284; J1885; J2270; J2405

== ENCOUNTER → 2018-12-08 10:55 | Outpatient (CLI) | payer OTHER, SELFPAY ==
--- NOTE | 2018-12-08 | DI.RAD.S_ITS ---
PROCEDURE: XR CERVICAL SPINE 2V OR 3V INDICATIONS: NECK PAIN TECHNIQUE: 3 view(s) of the cervical spine were acquired. COMPARISON: None. FINDINGS: Bones: No fractures or dislocations to the C7 level. The lateral masses of C1 appear intact on the odontoid view. No suspicious bony lesions. Straightening of the normal lordotic curvature. No definite disc space narrowing Soft tissues: No prevertebral soft tissue swelling. IMPRESSION: Straightening of the normal lordotic curvature. Mild diffuse facet arthropathy Dictated by: Brandyn Rosa M.D. on 12/08/2018 at 11:43 Approved by: Brandyn Rosa M.D. on 12/08/2018 at 11:44
== END ==
PROVIDERS: PCP Family Medicine; Visit Provider Family Medicine
DX: M54.2 Cervicalgia (principal); M47.812 Spondylosis without myelopathy or radiculopathy, cervical region
CPT/HCPCS: 72040

== ENCOUNTER → 2019-09-13 15:45 | Outpatient (CLI) | payer OTHER, SELFPAY ==
--- NOTE | 2019-09-13 15:46 | DI.US.S_ITS ---
PROCEDURE: US PELVIC COMPLETE INDICATIONS: RULE OUT LEFT OVARIAN CYST AND EVALUATE FOR ADENOMYOSIS TECHNIQUE: Real-time scanning was performed of the pelvic organs, with image documentation. Additional endovaginal scanning was necessary due to incomplete visualization of the adnexal and endometrial structures by transabdominal scanning. COMPARISON: [facility], , US PELVIC COMPLETE, 08/09/2018, 22:01. FINDINGS: Transabdominal scanning: Limited scanning through the kidneys shows no hydronephrosis. No pathologic free abdominal or pelvic fluid. Endovaginal scanning: Uterus: Uterus is normal in size at 7.8 x 3.3 x 4.2 cm. The endometrium measures 5-6 mm in combined thickness. Endometrium appears heterogeneous, technically non-specific. Ovaries: Right ovary measures 2.8 x 1.5 a 1.5 cm. The left ovary measures 2.6 x 1.2 x 1.4 cm. Incidental physiologic follicular change IMPRESSION: Overall, unremarkable examination as above. For further increase in study sensitivity for adenomyosis consider further evaluation with gynecologic protocol MRI, as clinically warranted. Dictated by: Brandyn Rosa M.D. on 09/13/2019 at 16:44 Approved by: Brandyn Rosa M.D. on 09/13/2019 at 16:47
== END ==
PROVIDERS: PCP Family Medicine; Referring Provider Family Medicine; Visit Provider Obstetrics & Gynecology
DX: R10.2 Pelvic and perineal pain (principal)
CPT/HCPCS: 76830; 76856

== ENCOUNTER → 2019-11-16 09:05 | Outpatient (CLI) | payer OTHER, SELFPAY ==
--- NOTE | 2019-11-16 | DI.US.S_ITS ---
PROCEDURE: US ABDOMEN COMPLETE INDICATIONS: Abdominal pain TECHNIQUE: Real-time scanning was performed of the abdominal and retroperitoneal organs, with image documentation. COMPARISON: [facility], US, US PELVIC COMPLETE, 09/13/2019, 15:59. [facility], CT, KIDNEY/ URETER/BLADDER, 04/07/2013, 3:29. FINDINGS: Liver: Liver is normal in size and homogeneous in echotexture. Gallbladder: No findings of gallstones or sludge are seen. The gallbladder wall is not thickened, measuring 3 mm or less. No specific pericholecystic fluid is seen. The sonographic Hassan sign is negative. Biliary ducts: Intrahepatic bile ducts are non-dilated. Extrahepatic bile duct caliber measures 4 mm. Normal is 6-7 mm or less in diameter, or 10 mm or less post-cholecystectomy. Pancreas: Visualized portions of the pancreas are sonographically normal. Spleen: Spleen is normal in size and homogeneous in echotexture. Kidneys: Kidneys are normal in size and echotexture. Right kidney measures 11.3 cm long; left kidney measures 11 cm long. No hydronephrosis can be seen. The previously described kidney stones are not well seen on this ultrasound. No solid masses. The renal cortex measures within normal limits for thickness. Aorta: Visualized aorta is normal in caliber at less than 3 cm. Iliacs: Proximal common iliac arteries are normal in caliber at less than 2.5 cm. IVC: Intrahepatic inferior vena cava is patent. Miscellaneous: No free abdominal fluid. IMPRESSION: The gallbladder demonstrates a normal sonographic appearance. No biliary dilatation is seen. No imaging explanation is found for this patient's presenting symptoms. Dictated by: Ian Mazariegos M.D. on 11/16/2019 at 9:47 Approved by: Ian Mazariegos M.D. on 11/16/2019 at 9:49
== END ==
PROVIDERS: PCP Family Medicine; Referring Provider Family Medicine; Visit Provider Family Medicine
DX: R10.9 Unspecified abdominal pain (principal)
CPT/HCPCS: 76700

== ENCOUNTER → 2020-01-29 10:30 | Outpatient (CLI) | payer OTHER, SELFPAY ==
[2020-01-29 12:33] LABS: Cancer Antigen 125 45.6 U/mL (0-35)
[2020-01-31 12:09] LABS: Human Epididymis Prot 4 54.5 pmol/L (0.0-63.6)
== END ==
PROVIDERS: PCP Family Medicine; Referring Provider Obstetrics & Gynecology; Visit Provider Obstetrics & Gynecology
DX: N83.292 Other ovarian cyst, left side (principal); R97.1 Elevated cancer antigen 125 [CA 125]
CPT/HCPCS: 36415; 86304; 86305

== ENCOUNTER → 2020-02-29 11:08 | Outpatient (CLI) | payer OTHER, SELFPAY ==
[2020-02-29 12:35] LABS: COVID19 -Nasal RAPID Negative (Negative)
== END ==
PROVIDERS: PCP Family Medicine; Visit Provider Obstetrics & Gynecology
DX: Z01.812 Encounter for preprocedural laboratory examination (principal); Z20.828 Contact with and (suspected) exposure to other viral communicable diseases
CPT/HCPCS: 87635; C9803

== ENCOUNTER 2020-03-03 06:28 | Day surgery (SDC) | payer OTHER, SELFPAY ==
[2020-02-28 12:27] VITALS: BMI 22.8
[2020-03-03] VITALS (10 sets, daily range): BP systolic 100–132; BP diastolic 54–83; PULSE 79–94; RESP 12–17; TEMP 36.3–37.2; O2SAT 94–100; BMI 22.8
--- NOTE | 2020-03-03 | PATH_ITS ---
[facility] Accession Number: [id number] . 01 Material submitted: . uterus - UTERUS AND BILATERAL FALLOPIAN TUBES . 02 Diagnosis: Uterus and Bilateral Falloipian Tubes, Supracervical Hysterctomy and Bilateral Salpingectomy: Adenomyosis. Secretory endometrium with no diagnostic abnormality. Bilateral fimbriated fallopian tubes with no diagnostic abnormality. No evidence of neoplasm. [facility] 03/05/2020 1349 Local . 02 Comment: As part of routine quality assurance/r&d lab technician, Dr. Zavaleta has reviewed block A2 of this case and agrees with the diagnosis of adenomyosis. . 02 Electronically signed: . Virgil Lopez MD, PhD, Pathologist NPI- [id number] . 01 Gross description: . The specimen is received in formalin, labeled uterus, bilateral fallopian tubes and consists of a 62 gram fragment of undisrupted uterus and bilateral fallopian tubes. The specimen measures 8.0 x 6.5 x 5.0 cm in aggregate. The serosa is georges-pink and smooth. A cervix is not identified. Sectioning reveals a georges-pink glistening endometrium measuring 0.1 cm in thickness. The myometrium is georges-pink and trabeculated measuring 2.0 cm in thickness. The fallopian tube average 6.0 cm in length x 1.0 cm in diameter and displays a georges-pink to pink-purple smooth to focally disrupted serosa. Sectioning reveals a georges mucosa and a stellate lumen measuring 0.2 cm in diameter. [employer] Floor Installer sections are submitted. . A1-A3 - [place] Floor Installer endomyometrium. A4-A5 - Fallopian tube with bisected fimbria and central cross-sections. A6-A7 - Other fallopian tube with bisected fimbria and central cross-sections. ([id number]) /[facility] 03/04/2020 1730 Local . 02 Pathologist provided ICD-10: N80.0, N92.0, N94.6 . 02 CPT . 269608 Performed at: 01 [facility] [address] [id number] MD Rodney Aguero MD Phone: [phone] Performed at: 02 [facility] [address] [place], [place] [id number] MD Ekta Zavaleta MD Phone: [phone]
--- NOTE | 2020-03-03 06:55 | PM.PREOP ---
Pre-operative Note COVID-19 COVID-19 status: Negative Result date/Date tested (Pos, Neg/Pending): 02/29/20 Interval Note History & Physical reviewed/Exam performed by Physician: Yes Changes to H&P: No H&P completed within 30 days and has changed as indicated here:: 02/26/20
[2020-03-03] MEDS: LACTATED RINGERS 1,000 ML 42 ML IV (07:06)
[2020-03-03] MEDS: SCOPOLAMINE 1 PATCH TOP (07:09)
[2020-03-03] MEDS: ACETAMINOPHEN 325 MG TABLET 975 MG PO (07:09)
[2020-03-03] MEDS: CEFAZOLIN 2 GM/100 ML FROZ.PIGGY IV (08:03)
--- NOTE | 2020-03-03 08:40 | SUR.OPER ---
Lithotomy on padded OR bed. [place] Pad Positioner under torso. Head on pillow, arms padded and tucked at sides. Legs secured in padded yellow fins stirrups.
[2020-03-03] MEDS: BUPIVACAINE 0.5% W/ EPI (PF) 30 ML VIAL INJ (08:47)
[2020-03-03] MEDS: ROPIVACAINE 0.2% PF 2 MG/ML 10ML AMP 20 ML INJ (08:48)
--- NOTE | 2020-03-03 09:39 | P.OP_ITS ---
Operative Date/Time/Diagnoses Date of procedure: 03/03/20 Time of procedure: 09:40 Pre-op diagnosis: Left ovarian cyst Pelvic pain Severe dysmenorrhea Menorrhagia Pelvic congestion Post-op diagnosis: same Procedure & Clinicians Procedure: Procedures Operation Date: 03/03/20 07:45 Actual Procedures Side Surgeon p Laparoscopic Supracervical Hysterectomy bilateral sapingectomy, excision left ovarian cyst Haylee Nogueira MD Indications: Left ovarian cyst Pelvic pain Severe dysmenorrhea Menorrhagia Pelvic congestion Surgeon: Haylee Nogueira Stem Maker: Hafsa Cartwright Anesthesia Type: General and Local Operative Notes Findings: Eight week size anteverted uterus Normal tubes bilaterally Normal right ovary Left ovary with 3 cm x 3 cm hemorrhagic cyst Significant dilated veins in the pelvis No evidence of endometriosis Normal liver and gallbladder Status post appendectomy Closure Type: primary Specimen(s): left tube, right tube and uterus Applied: catheter (Removed at the end of the case) Estimated blood loss (mL): 5 Blood products transfused: none Procedure in detail: The patient was taken to the operating room where she was placed in the dorsal supine position. After adequate general endotracheal anesthesia was achieved, she was placed in the dorsal lithotomy position, and prepped and draped in the usual sterile fashion. A timeout was performed. A bivalve speculum was placed into the vagina and the anterior lip of the cervix grasped with a single-tooth tenaculum. The cervical os was sequentially dilated until the ZUMI uterine manipulator could pass easily into the endometrial cavity. The single-tooth tenaculum was removed from the anterior lip of the cervix, and the bivalve speculum was removed from the vagina. Attention was then turned to the abdomen where 6 mL of half percent Marcaine with epinephrine were injected in the umbilical fold. A 5 mm incision was made. The Verhees needle was placed into the peritoneal cavity, and its placement confirmed by aspiration and drop test. The Verhees needle was removed. A 5 mm trocar was placed without difficulty. 2 other incisions were made midway between the pubic symphysis and umbilicus after 5 mL of half percent Marcaine with epinephrine were injected. These were 5 mm incisions. Two 5 mm trochars were placed under direct visualization. The right tube was grasped with an atraumatic grasper. Using the plasma kinetic with settings of 40 W the mesosalpinx was cauterized and cut all the way down to the cornua of the uterus. The cornua of the uterus was then grasped with an atraumatic grasper. The utero-ovarian ligaments were cauterized and cut by the assistant refinery operator. The round ligament and broad ligament was cauterized and cut with plasma kinetic, by the assistant refinery operator. Hemostasis was achieved. The bladder flap was created, by the assistant refinery operator, using the plasma kinetic with cautery and cut residential across. The uterine arteries on the right side were extensively cauterized with plasma kinetic, by the assistant refinery operator. All of this was repeated on the left side by the primary surgeon. The remainder of the bladder flap was created using the plasma kinetic, and the bladder taken down off the lower uterine segment and cervix. Using the Endoloop, with the assistant refinery operator the pulling the tubes through the loop and lifting the uterus out of the pelvis, the cervix was amputated from the uterus 2 cm above the uterosacral ligaments, after the ZUMI uterine manipulator was removed from the uterus. There was a small amount of bleeding noted from the right edge of the cervix, and this was cauterized for hemostasis. The endocervical canal was extensively cauterized with the PlasmaKinetic. A sponge stick was placed into the vagina. 6 mL of half percent Marcaine with epinephrine were injected above the pubic symphysis. A 10 mm incision was made. The fascial incision was extended with retraction from the assistant refinery operator. A 10 mm trocar was placed. An Endobag was placed through the suprapubic trocar and the uterus and tubes were placed into the Endobag. The trocar was removed. The Navarro placed into the endobag after the uterus was grabbed with a Ronaldo. The uterus and tubes were hand morcellated in approximately 2 pieces. The Navarro was removed from the incision. The Endobag was removed from the peritoneal cavity. The suprapubic incision was closed on the fascia with 0 Vicryl in a running suture with the assistant refinery operator retracting. The abdomen was re-insufflated with carbon dioxide gas. The pelvis was copiously irrigated with warm normal saline. No bleeding was noted. 20 cc of 0.2% ropivacaine were placed over the pedicles. The instruments were removed from the abdomen. The CO2 was allowed to escape. All of the incisions were closed with 4-0 Biosyn in a subcuticular fashion. Steri- Strips were placed. Allevyn dressings were placed. The moistened sponge stick was removed from the vagina. Sponge, lap, and instrument counts were correct x- 2. The patient tolerated the procedure well, was taken to PACU in stable condition. Complications: none Post-operative Condition: stable Disposition: PACU Plan for aftercare: Home after recovery
[2020-03-03] MEDS: OXYCODONE/ACETAMINOPHEN 5/325 TABLET 1 TAB PO (11:22)
--- NOTE | 2020-03-03 11:30 | SUR.PHASEII ---
Patient with post void of 0 ml on bladder scan. Unmeasured urinary output in bathroom. Dr Nogueira made aware via Sandra RN. Sandra spoke to Dr Nogueira and states okay for patient dc. Patient informed per md to empty bladder every couple of hours.
== END 2020-03-03 11:59 | disposition home or self-care (01) ==
PROVIDERS: PCP Family Medicine; Referring Provider Family Medicine; Visit Provider Obstetrics & Gynecology
PROC: 0UT94ZL Resection of Uterus, Supracervical, Percutaneous Endoscopic Approach (ICD-10-PCS; CPT 58542; principal; 2020-03-03 07:45)
DX: N80.0 Endometriosis of uterus (principal); J45.990 Exercise induced bronchospasm; F41.9 Anxiety disorder, unspecified; F32.9 Major depressive disorder, single episode, unspecified; N83.202 Unspecified ovarian cyst, left side
CPT/HCPCS: 58542; J0330; J0690; J1100; J1885; J2250; J2405; J2704; J2795; J3010

== ENCOUNTER 2020-05-17 22:27 | Emergency (ER) | payer OTHER, SELFPAY ==
[2020-05-17 22:37] VITALS: BP 135/88; PULSE 138; RESP 22; TEMP 36.6; O2SAT 98; BMI 22.3
--- NOTE | 2020-05-17 22:51 | ED.BACK ---
HPI - Back Pain/Injury General Chief Complaint: Back Pain/Injury Stated Complaint: Kidney stones Time Seen by Provider: 05/17/20 22:51 Source: patient Limitations: no limitations History of Present Illness HPI Narrative: This is a 39-year-old female with complaint of left flank pain that was fairly sudden onset this evening but has been progressively worsening over the last 3-4 hours. Patient states she has had some nausea but no active vomiting. No fevers or chills. She states it feels similar to when she had kidney stones in the past. She denies any pain in the anterior abdomen. Patient noticed some hematuria earlier this evening. She states that the pain was slowly building this evening then became too intense and she came for evaluation. She states she has had some constipation. She has been passing flatus but has not had a bowel movement. She did try suppositories x2 the past 2 days. Patient does have a history significant for hysterectomy but does still have her ovaries present bilaterally. Her surgery was in February of 2020. She has also had prior kidney stones. She has had appendectomy. She is not any other medications regularly. Related Data Home Medications Medication Instructions Recorded Confirmed cholecalciferol (vitamin D3) PO 01/29/20 04/16/20 Allergies Allergy/AdvReac Type Severity Reaction Status Date / Time prochlorperazine Allergy Intermediate Hallucinati Verified 02/26/20 08:58 ng Review of Systems Review of Systems ROS Unobtainable: All systems reviewed & are unremarkable except as noted in HPI and below Patient History Medical History Anxiety Depression Exercise-induced asthma Kidney stone on right side Severe dysmenorrhea Surgical History History of third molar tooth extraction History of tonsillectomy Hx of laparoscopy (10/31/17) Status post appendectomy Status post loop electrosurgical excision procedure (LEEP) of cervix Social History marital status: household members: family Smoking Status: Never smoker alcohol intake: current substance use type: does not use Smoking Status: Never smoker alcohol intake frequency: a few times a month Substance Use Type: does not use Exam Narrative Exam Narrative: GENERAL: Alert and oriented x three, thin female in moderate distress. Patient appears quite uncomfortable on exam. She is standing and trying to find a position of comfort while moving around the room. HEENT: Head normocephalic, atraumatic, EOMI, pupils reactive, face symmetric, moist mucous membranes NECK: Supple, full range of motion CARDIOVASCULAR: Tachycardic with regular rate and rhythm without murmurs, rubs or gallops. RESPIRATORY: Breath sounds equal bilaterally, no wheezes rales or rhonchi. ABDOMEN: Soft, nontender. Normoactive bowel sounds all 4 quadrants. No guarding or rebound, rigidity, no mass, non-distended. : No CVA tenderness appreciated. EXTREMITIES: Normal range of motion, no clubbing or edema. Neurovascularly intact NEUROLOGICAL: Cranial nerves II through XII grossly intact. Moving all extremities SKIN: Warm, dry, no petechiae, no rashes or lesions. Initial Vital Signs Initial Vital Signs: Vital Signs Temperature 98 F 05/17/20 22:37 Pulse Rate 138 H 05/17/20 22:37 Respiratory Rate 22 05/17/20 22:37 Blood Pressure 135/88 05/17/20 22:37 Pulse Oximetry 98 05/17/20 22:37 Course Orders Ordered: ED Orders 05/17/20 22:35 Complete Blood Count AUTO DIFF Stat Comprehensive Metabolic Panel Stat D Dimer Stat Lipase Stat Troponin & CK Cardiac Panel Stat 05/17/20 22:44 EKG-12 Lead Stat 05/17/20 23:00 CT kidney ureter bladder (KUB) Stat 05/18/20 01:41 US pelvic complete Stat 05/18/20 01:53 Procalcitonin Stat 05/18/20 01:57 Lactate (Lactic Acid) Stat Discontinued Medications Hydrocodone Bitart/Acetaminophen (Hydrocodone/Acet 5/325 Prepack) 1 bottle MISC SEEINSTR ONE Stop: 05/18/20 04:13 Last Admin: 05/18/20 04:22 Dose: 1 bottle Documented by: EVELYN Hydromorphone HCl (Hydromorphone 1 Mg Inj) 1 mg IV NOW ONE Stop: 05/17/20 23:00 Last Admin: 05/17/20 23:09 Dose: 1 mg Documented by: GRISELDA Hydromorphone HCl (Hydromorphone 0.5 Mg Inj) 0.5 mg IV NOW ONE Stop: 05/17/20 23:47 Last Admin: 05/18/20 00:00 Dose: 0.5 mg Documented by: GRISELDA Sodium Chloride (Normal Saline 0.9%) 1,000 mls @ 1,000 mls/hr IV BOLUS ONE Stop: 05/17/20 23:43 Last Infusion: 05/18/20 01:21 Dose: 0 mls/hr Documented by: Admin: 05/17/20 22:52 Dose: 1,000 mls/hr Documented by: EVELYN Lidocaine HCl 4.4 ml/ Sodium (Chloride) 54.4 mls @ 326.4 mls/hr IV NOW ONE Stop: 05/18/20 01:12 Last Infusion: 05/18/20 02:12 Dose: 0 mls/hr Documented by: Admin: 05/18/20 01:16 Dose: 326.4 mls/hr Documented by: GRISELDA Sodium Chloride (Normal Saline 0.9%) 1,000 mls @ 1,000 mls/hr IV BOLUS ONE Stop: 05/18/20 02:51 Last Infusion: 05/18/20 03:47 Dose: 0 mls/hr Documented by: Admin: 05/18/20 02:01 Dose: 1,000 mls/hr Documented by: GRISELDA Ketorolac Tromethamine (Ketorolac 60 Mg/2 Ml Vial) 30 mg IV NOW ONE Stop: 05/17/20 22:45 Last Admin: 05/17/20 22:52 Dose: 30 mg Documented by: EVELYN Lorazepam (Lorazepam 2 Mg/Ml Inj) 0.5 mg IV NOW ONE Stop: 05/18/20 00:08 Last Admin: 05/18/20 00:13 Dose: 0.5 mg Documented by: GRISELDA Lorazepam (Lorazepam 2 Mg/Ml Inj) 1 mg IV NOW ONE Stop: 05/18/20 01:42 Last Admin: 05/18/20 02:01 Dose: 1 mg Documented by: GRISELDA Methylprednisolone (Methylprednisolone 125 Mg/2 Ml Vial) 125 mg IV NOW ONE Stop: 05/18/20 00:08 Last Admin: 05/18/20 00:13 Dose: 125 mg Documented by: GRISELDA Morphine Sulfate (Morphine 4 Mg/Ml Inj) 4 mg IV NOW ONE Stop: 05/18/20 01:42 Last Admin: 05/18/20 02:00 Dose: 4 mg Documented by: GRISELDA Ondansetron HCl (Ondansetron 4 Mg/2 Ml Inj) 4 mg IV NOW ONE Stop: 05/18/20 01:54 Last Admin: 05/18/20 02:01 Dose: 4 mg Documented by: GRISELDA Ondansetron HCl (Ondansetron 4 Mg Odt Prepack) 1 bottle [facility] [place] SEEINSTR ONE Stop: 05/18/20 04:13 Last Admin: 05/18/20 04:22 Dose: 1 bottle Documented by: EVELYN Reevaluation(s) Reevaluation #1: Some improvement but patient still appears quite uncomfortable. Plan to try additional dose of medication and if unsuccessful change medication options. Reviewed labs and urine showed bacteriuria but no other major changes at this time. Time: 23:47 Reevaluation #2: Patient is feeling more anxious. She feels like she is trying to drink through a straw. She has a little bit of redness of her face but no obvious hives or wheals. No rash elsewhere states she does not feel itchy. She has dilaudid in the past without issues. States she does feel very anxious. She states it started before she received any medication, it has been intermittent but worsening. She states that she does not do well with Benadryl and makes her very anxious and agitated. Will give Solu-Medrol 125 as well as Ativan and reassess. Time: 00:08 Reevaluation #3: Patient IV fell out. Patient did have emesis in room and unable to tolerate oral medications. Reviewed labs and CT findings. Patient IV was replaced. Plan for ultrasound to rule out torsion as patient continues to have significant left-sided pain has come somewhat to the anterior abdomen with minimal improvement of pain. Time: 01:42 Vital Signs Vital signs: Vital Signs - 8 hr 05/17/20 22:37 05/18/20 01:36 05/18/20 02:08 Temperature 98 F Pulse Rate 138 H 108 H 89 Respiratory Rate 22 20 16 Blood Pressure 135/88 122/69 105/67 Pulse Oximetry 98 99 97 05/18/20 02:33 05/18/20 03:00 05/18/20 03:30 Temperature Pulse Rate 99 H 87 85 Respiratory Rate 15 12 12 Blood Pressure Pulse Oximetry 94 97 94 05/18/20 04:00 Temperature Pulse Rate 107 H Respiratory Rate 12 Blood Pressure Pulse Oximetry 95 MDM - Back Pain/Injury Lab Data Attestation: I reviewed the patient's lab results. Result diagrams: 05/17/20 22:35 05/17/20 22:35 Labs: Lab Results 05/17/20 05/17/20 05/17/20 Range/Units 22:35 22:35 22:35 WBC 10.8 (4.5-11.0) X10^3/uL RBC 4.46 (4.0-5.2) X10^6/uL Hgb 14.5 (12.0-16.0) g/dL Hct 42.7 (36-46) % MCV 95.8 (80-100) fL MCH 32.6 (26-34) PG MCHC 34.1 (30-36) % RDW 13.0 (11.6-14.8) % Plt Count 349 (150-400) X10^3/uL Neut % (Auto) 61.5 (50-75) % Lymph % (Auto) 29.7 (25-40) % [place] % (Auto) 7.1 (3-14) % Eos % (Auto) 0.9 L (2-4) % Baso % (Auto) 0.8 (0-2) % Neut # (Auto) 6600 (7789-8043) /uL Lymph # (Auto) 3200 (6885-7019) /uL [place] # (Auto) 800 (0-900) /uL Eos # (Auto) 100 (0-450) /uL Baso # (Auto) 100 (0-100) /uL D-Dimer < 200 (<230) ng/mL Sodium 143 (137-145) mmol/L Potassium 3.9 (3.4-5.1) mmol/L Chloride 108 H (98-107) mmol/L Carbon Dioxide 26 (22-32) mmol/L BUN 14 (7-17) mg/dL Creatinine 0.86 (0.52-1.04) mg/dL Estimated GFR > 60.0 (>60) mL/min BUN/Creatinine Ratio 16.3 (6-22) Glucose 96 (70-100) mg/dL Lactate (0.7-2.1) mmol/L Calcium 9.8 (8.4-10.2) mg/dL Total Bilirubin 0.3 (0.2-1.3) mg/dL AST 29 (14-36) IU/L ALT 17 (<35) IU/L Alkaline Phosphatase 47 (38-126) U/L Total Creatine Kinase (30-135) U/L CK-MB (CK-2) (<2.37) ng/mL CK-MB (CK-2) Rel Index (1.5-5.0) % Troponin I (0.01-0.034) ng/mL Total Protein 8.3 H (6.3-8.2) g/dL Albumin 4.9 (3.5-5.0) g/dL Globulin 3.4 (1.7-4.1) g/dL Albumin/Globulin Ratio 1.4 (1.0-2.8) Lipase 107 (23-300) U/L Procalcitonin (<0.5) ng/mL 05/17/20 05/17/20 05/18/20 Range/Units 22:35 22:35 01:57 WBC (4.5-11.0) X10^3/uL RBC (4.0-5.2) X10^6/uL Hgb (12.0-16.0) g/dL Hct (36-46) % MCV (80-100) fL MCH (26-34) PG MCHC (30-36) % RDW (11.6-14.8) % Plt Count (150-400) X10^3/uL Neut % (Auto) (50-75) % Lymph % (Auto) (25-40) % [place] % (Auto) (3-14) % Eos % (Auto) (2-4) % Baso % (Auto) (0-2) % Neut # (Auto) (6679-9923) /uL Lymph # (Auto) (1824-8627) /uL [place] # (Auto) (0-900) /uL Eos # (Auto) (0-450) /uL Baso # (Auto) (0-100) /uL D-Dimer (<230) ng/mL Sodium (137-145) mmol/L Potassium (3.4-5.1) mmol/L Chloride (98-107) mmol/L Carbon Dioxide (22-32) mmol/L BUN (7-17) mg/dL Creatinine (0.52-1.04) mg/dL Estimated GFR (>60) mL/min BUN/Creatinine Ratio (6-22) Glucose (70-100) mg/dL Lactate 1.5 (0.7-2.1) mmol/L Calcium (8.4-10.2) mg/dL Total Bilirubin (0.2-1.3) mg/dL AST (14-36) IU/L ALT (<35) IU/L Alkaline Phosphatase (38-126) U/L Total Creatine Kinase 111 (30-135) U/L CK-MB (CK-2) 0.90 (<2.37) ng/mL CK-MB (CK-2) Rel Index 0.8 L (1.5-5.0) % Troponin I < 0.012 (0.01-0.034) ng/mL Total Protein (6.3-8.2) g/dL Albumin (3.5-5.0) g/dL Globulin (1.7-4.1) g/dL Albumin/Globulin Ratio (1.0-2.8) Lipase (23-300) U/L Procalcitonin 0.06 (<0.5) ng/mL Urine Dip Bedside Urine Glucose Negative Bedside Urine Bilirubin - Negative Bedside Urine Ketone - Negative Urine Specific [place] 1.010 Bedside Urine Occult Blood +/- Bedside Urine pH 6 Bedside Urine Protein - Negative Bedside Urine Urobilinogen - Negative Bedside Urine Nitrite - Negative Bedside Urine Leukocytes - Negative Esterase Imaging Data CT scan - abdomen/pelvis: Radiologist's Impression: Evidence of renal destruction. No hydro or ureteral calculus bilaterally. Multiple nonobstructing renal calculi bilaterally measuring up to 5 mm in the left kidney. Dominant left ovarian follicle/cyst measuring up to 3.9 cm. Small amount of free fluid present within the posterior cul-de-sac likely physiologic. Consider pelvic ultrasound for further characterization. US - CERTIFIED NURSE OPERATING ROOM: Radiologist's Impression: Vaginal cuff is normal in appearance. Right ovary measures 2.7 x 1.7 x 1 cm. Normal sonographic appearance right ovary. Normal color Doppler arterial and venous spectral Doppler waveform. Left ovary measures 4 x 3.9 x 3.8 cm. Anechoic cyst measuring 3.6 x 3.1 x 3 cm with through transmission with no internal echoes. Normal color Doppler and arterial venous spectral Doppler waveforms left ovary. Moderate free fluid with debris. No pelvic mass or cyst identified. ECG Data Attestation: I personally reviewed and interpreted this ECG as follows: Prior ECG tracings: not available for review Interpretation: Sinus tachycardia rate of 138, IL 136 QRS 72 and QTC of 439. Nonspecific change. MDM Narrative Medical decision making narrative: This is a 39-year-old female comes in with initially directed flank but then starts to move a little bit more the abdominal region. Patient has had history of kidney stones she has also had dysmenorrhea and had a recent hysterectomy 2 months prior. Patient is tachycardic and continues to be quite uncomfortable. Labs show some bacteria but does not reveal the source of patient's discomfort. They were quite tachycardic and anxious and with prior surgery just 2 months previously D-dimer and troponin were included which were both negative, procalcitonin was also included which is negative as well. Urine shows bacteria with 1-5 wbc's and specimen was cultured no tried traits or leukocyte esterase so antibiotics were deferred until culture returns. CT imaging showed a left ovarian cyst with free fluid in the posterior cul-de-sac. Patient has renal calculi present but no ureterolithiasis. Suspect ovarian cyst or a ruptured ovarian cyst may be the source of pain. Patient was having significant pain with minimal improvement with pain medications shoulder sound was ordered to evaluate for torsion although the cyst at its maximum dimension is 3.6 cm making this less likely. Pelvic ultrasound shows an anechoic cyst with moderate free fluid. Discussed I suspect this is the main cause of pain but urine culture is still pending and may ultimately be positive and PEEP patient should expect a phone call if that occurs to start her on antibiotics. She has also had recent constipation with difficulty with bowel movements. Medications given tonight will likely make this worse. Patient is feeling much more comfortable at this time discharged home with plan for follow-up with primary care OBGYN particularly if symptoms are not significantly improving. Return precautions were discussed. Discharge Plan Departure Patient Disposition: Home Clinical Impression: Left ovarian cyst, Flank pain Instructions: DI for Ovarian Cyst Activity Restrictions/Additional Instructions: Follow up with tanning drum operator or your primary care for recheck in this week if you are continuing to have any symptoms. You may take pain medication as prescribed. This medication can make you sleepy do not drive, perform hazardous activities or make any major decisions while driving. Your imaging today shows a left ovarian cyst with free fluid in the pelvis. Return for fevers, rapidly worsening pain abdominal or flank pain, lightheadedness or passing out, persistent vomiting, fever having any black or bloody stools, inability urinate or other new or concerning symptoms. Prescriptions: No Action cholecalciferol (vitamin D3) PO RF: 0 Referrals: Lilia Evans MD [Primary Care Provider] -
[2020-05-17] MEDS: KETOROLAC 60 MG/2 ML VIAL 30 MG IV (22:52)
[2020-05-17] MEDS: SODIUM CHLORIDE 0.9% 1,000 ML 1000 ML IV (22:52)
[2020-05-17 22:59] LABS: Add Manual Diff / Slide Review NO; Basophils Absolute Auto 100 /uL (0-100); Basophils Percent Auto 0.8 % (0-2); Eosinophils Absolute Auto 100 /uL (0-450); Eosinophils Percent Auto 0.9 % (2-4); Hematocrit 42.7 % (36-46); Hemoglobin 14.5 g/dL (12.0-16.0); Lymphocytes Absolute Auto 3200 /uL (1100-4500); Lymphocytes Percent Auto 29.7 % (25-40); Mean Corpuscular HGB Conc 34.1 % (30-36); Mean Corpuscular Hemoglobin 32.6 PG (26-34); Mean Corpuscular Volume 95.8 fL (80-100); Monocytes Absolute Auto 800 /uL (0-900); Monocytes Percent Auto 7.1 % (3-14); Neutrophils Absolute Auto 6600 /uL (1500-7000); Neutrophils Percent Auto 61.5 % (50-75); Platelet Count 349 X10^3/uL (150-400); Red Blood Cell Count 4.46 X10^6/uL (4.0-5.2); White Blood Cell Count 10.8 X10^3/uL (4.5-11.0)
--- NOTE | 2020-05-17 23:00 | DI.CT.S_ITS ---
PROCEDURE: CT KIDNEY URETER BLADDER (KUB) INDICATIONS: left flank pain, hx renal stones, hyst in 03/02 TECHNIQUE: Noncontrast 5 mm thick sections acquired from the diaphragms to the symphysis. 5 mm thick coronal and sagittal reformats were then performed. For radiation dose reduction, the following was used: automated exposure control, adjustment of mA and/or kV according to patient size. COMPARISON: [facility], CT, KIDNEY/ URETER/BLADDER, 04/07/2013, 3:29. FINDINGS: Image quality: Excellent. Lung bases: Lung bases are clear. Heart size is normal. Urinary system: Right kidney: Numerous nonobstructing stones, the largest of which measures 3 mm. No hydronephrosis. Right ureter: Unremarkable Left kidney: Numerous nonobstructing stones, the largest of which measures 6 mm. No hydronephrosis. Left ureter: Unremarkable Bladder: No bladder stones. No bladder wall thickening. Other solid organs: Liver is normal in size. Gallbladder is unremarkable . Pancreas is normal in contours. Spleen is normal in size. No adrenal nodules. Peritoneum and bowel: Unenhanced bowel loops demonstrate normal wall thickness and caliber. No free fluid or air. Nodes and vessels: No retroperitoneal or mesenteric adenopathy by size criteria. Aorta and inferior vena cava are normal in caliber. Abdominal wall: No ventral hernias. Pelvis: No free pelvic fluid. No inguinal hernias or adenopathy. 3.9 cm left adnexal cyst. Physiologic pelvic fluid. Bones: No suspicious bony lesions. No vertebral body compression fractures. IMPRESSION: 1. Numerous nonobstructing bilateral renal stones, the largest of which measures 3 mm on right and 6 mm on left. 2. 3.9 cm left adnexal cyst. Comment: Final report is concordant with preliminary interpretation provided by [facility]. Dictated by: Eliezer Chaves M.D. on 05/18/2020 at 5:40 Approved by: Eliezer Chaves M.D. on 05/18/2020 at 5:49
[2020-05-17 23:04] LABS: Alanine Aminotransferase 17 IU/L (<35); Albumin 4.9 g/dL (3.5-5.0); Albumin Globulin Ratio 1.4 (1.0-2.8); Alkaline Phosphatase 47 U/L (38-126); Aspartate Aminotransferase 29 IU/L (14-36); BUN Creatinine Ratio 16.3 (6-22); Bilirubin Total 0.3 mg/dL (0.2-1.3); Blood Urea Nitrogen 14 mg/dL (7-17); Calcium 9.8 mg/dL (8.4-10.2); Carbon Dioxide 26 mmol/L (22-32); Chloride 108 mmol/L (98-107); Estimated Glomerular Filt Rate > 60.0 mL/min (>60); Globulin 3.4 g/dL (1.7-4.1); Glucose 96 mg/dL (70-100); HEMOLYSIS < 15 (0-50); Lipase 107 U/L (23-300); Potassium 3.9 mmol/L (3.4-5.1); Sodium 143 mmol/L (137-145); Total Protein 8.3 g/dL (6.3-8.2)
[2020-05-17] MEDS: HYDROMORPHONE 1 MG INJ IV (23:09)
[2020-05-18] MEDS: HYDROMORPHONE 0.5 MG INJ IV
[2020-05-18 00:13] LABS: Creatine Kinase 111 U/L (30-135)
[2020-05-18] MEDS: LORazepam 2 MG/ML INJ 0.5 MG IV (00:13)
[2020-05-18] MEDS: methylPREDNISolone 125 MG/2 ML VIAL IV (00:13)
[2020-05-18 00:15] LABS: D Dimer < 200 ng/mL (<230)
[2020-05-18 00:26] LABS: Troponin I < 0.012 ng/mL (0.01-0.034)
[2020-05-18 00:28] LABS: CKMB % Relative Index 0.8 % (1.5-5.0)
[2020-05-18] MEDS: LIDOCAINE 2% 4.4 ML in SODIUM CHLORIDE 0.9% 50 ML 326.4 ML IV (01:16)
[2020-05-18 01:36] VITALS: BP 122/69; PULSE 108; RESP 20; O2SAT 99
--- NOTE | 2020-05-18 01:41 | DI.US.S_ITS ---
PROCEDURE: US PELVIC COMPLETE INDICATIONS: LEFT OVARIAN CYST ?TORSION TECHNIQUE: Real-time scanning was performed of the pelvic organs, with image documentation. Additional endovaginal scanning was necessary due to incomplete visualization of the adnexal and endometrial structures by transabdominal scanning. COMPARISON: [facility], CT, CT KIDNEY URETER BLADDER (KUB), 05/17/2020, 23:40. [facility], US, US PELVIC COMPLETE, 01/29/2020, 9:30. FINDINGS: Uterus: Status post partial hysterectomy. Unremarkable. Ovaries: Right ovary measures 2.7 x 1.7 x 0.9 cm. Left ovary measures 4.0 x 3.8 x 3.9 cm. The left ovary contains a simple cyst measuring 3.6 x 3.1 x 3.0 cm. There is bilateral intra-ovarian arterial and venous flow. Other: Free pelvic fluid appears slightly greater than physiologic, and contains debris. It is water Hounsfield density on CT. IMPRESSION: 1. 3.6 cm left ovarian cyst. 2. No evidence of ovarian torsion. 3. Free fluid is slightly greater than physiologic. It contains debris. 4. Subtotal hysterectomy. Comment: Final report is concordant with preliminary interpretation provided by [facility]. Dictated by: Eliezer Chaves M.D. on 05/18/2020 at 5:55 Approved by: Eliezer Chaves M.D. on 05/18/2020 at 6:00
[2020-05-18] MEDS: MORPHINE 4 MG/ML INJ IV (02:00)
[2020-05-18] MEDS: LORazepam 2 MG/ML INJ 1 MG IV (02:01)
[2020-05-18] MEDS: ONDANSETRON 4 MG/2 ML INJ IV (02:01)
[2020-05-18] MEDS: SODIUM CHLORIDE 0.9% 1,000 ML 1000 ML IV (02:01)
[2020-05-18 02:08] VITALS: BP 105/67; PULSE 89; RESP 16; O2SAT 97
[2020-05-18 02:13] LABS: Lactate (Lactic Acid) 1.5 mmol/L (0.7-2.1)
[2020-05-18 02:27] LABS: Procalcitonin 0.06 ng/mL (<0.5)
[2020-05-18 02:33] VITALS: PULSE 99; RESP 15; O2SAT 94
[2020-05-18 03:00] VITALS: PULSE 87; RESP 12; O2SAT 97
[2020-05-18 03:30] VITALS: PULSE 85; RESP 12; O2SAT 94
[2020-05-18 04:00] VITALS: PULSE 107; RESP 12; O2SAT 95
[2020-05-18] MEDS: HYDROCODONE/ACET 5/325 PREPACK 1 BOTTLE MISC (04:22)
[2020-05-18] MEDS: ONDANSETRON 4 MG ODT PREPACK 1 BOTTLE MISC (04:22)
== END 2020-05-18 04:30 | disposition home or self-care (01) ==
PROVIDERS: Emergency Provider Emergency Medicine; PCP Family Medicine
DX: N83.202 Unspecified ovarian cyst, left side (principal); R00.0 Tachycardia, unspecified; R10.9 Unspecified abdominal pain; F41.9 Anxiety disorder, unspecified; R11.0 Nausea; R31.9 Hematuria, unspecified; Z87.442 Personal history of urinary calculi; K59.00 Constipation, unspecified
CPT/HCPCS: 36415; 74176; 76830; 76856; 80053; 81003; 82550; 82553; 83605; 83690; 84145; 84484; 85025; 85379; 93005; 96361; 96365; 96375; 96376; 99284; J1170; J1885; J2060; J2270; J2405; J2930

== ENCOUNTER → 2020-05-31 16:28 | Outpatient (CLI) | payer OTHER, SELFPAY ==
[2020-05-31 17:46] LABS: COVID19 -Nasal RAPID Negative (Negative)
== END ==
PROVIDERS: PCP Family Medicine; Visit Provider Physician Assistant
DX: Z20.822 Contact with and (suspected) exposure to COVID-19 (principal); J02.9 Acute pharyngitis, unspecified
CPT/HCPCS: 87070; 87635

== ENCOUNTER 2020-08-11 18:25 | Emergency (ER) | payer OTHER, SELFPAY ==
[2020-08-11 18:28] VITALS: BP 137/86; PULSE 84; RESP 20; TEMP 37.2; O2SAT 100
[2020-08-11] MEDS: KETOROLAC 30 MG/ML VIAL 15 MG IV (18:44)
[2020-08-11 18:57] LABS: Add Manual Diff / Slide Review NO; Basophils Absolute Auto 100 /uL (0-100); Basophils Percent Auto 1.4 % (0-2); Eosinophils Absolute Auto 100 /uL (0-450); Eosinophils Percent Auto 1.2 % (2-4); Hematocrit 41.4 % (36-46); Hemoglobin 14.2 g/dL (12.0-16.0); Lymphocytes Absolute Auto 3200 /uL (1100-4500); Lymphocytes Percent Auto 35.6 % (25-40); Mean Corpuscular HGB Conc 34.2 % (30-36); Mean Corpuscular Hemoglobin 32.9 PG (26-34); Mean Corpuscular Volume 96.2 fL (80-100); Monocytes Absolute Auto 800 /uL (0-900); Monocytes Percent Auto 8.5 % (3-14); Neutrophils Absolute Auto 4700 /uL (1500-7000); Neutrophils Percent Auto 53.3 % (50-75); Platelet Count 348 X10^3/uL (150-400); Red Cell Distribution Width 13.2 % (11.6-14.8); White Blood Cell Count 8.9 X10^3/uL (4.5-11.0)
[2020-08-11] MEDS: SODIUM CHLORIDE 0.9% 1,000 ML 1000 ML IV (19:02)
--- NOTE | 2020-08-11 19:04 | ED.FEMALEGU ---
HPI - Female Genitourinary General Chief complaint: Abdominal Pain Stated complaint: KIDNEY STONE Time Seen by Provider: 08/11/20 18:36 Source: patient Mode of arrival: Ambulatory Limitations: no limitations History of Present Illness HPI Narrative: Patient is a 40-year-old female history of multiple kidney stones, appendectomy and hysterectomy presenting with right flank pain started about 2-1/2 hours ago. She took 400 mg of ibuprofen prior to arrival but has not yet helped. She has pain in her right flank it is not yet radiating around to her front. No fever or chills. This feels like previous kidney stones. Complaint: other (Right flank pain) Onset (ago): hour(s) Quality: Sharp and Stabbing Duration: constant Related Data Home Medications Medication Instructions Recorded Confirmed cholecalciferol (vitamin D3) PO 01/29/20 05/31/20 Allergies Allergy/AdvReac Type Severity Reaction Status Date / Time prochlorperazine Allergy Intermediate Hallucinati Verified 05/31/20 17:34 ng Review of Systems Review of Systems Narrative: GENERAL: Denies chills, fatigue, malaise, fever, sweats, travel HEENT: Denies sinus pain, ear pain, sore throat, difficulty swallowing, neck pain RESPIRATORY: Denies dyspnea, cough, wheezing, hemoptysis, sputum. CARDIOVASCULAR: Denies chest pain, palpitations, orthopnea, edema GASTROINTESTINAL: Denies nausea, vomiting, abdominal pain, diarrhea, constipation, melena. : See HPI MUSCULOSKELETAL: Denies weakness, joint pain, or bony pain SKIN: No rash, no erythema, no pruritus NEUROLOGIC: Denies weakness, dizziness, headache, numbness, change in speech, confusion PSYCHIATRIC: No concerning psychosocial issues. 12 point review of systems is negative except for those stated above and HPI Patient History Medical History Anxiety Depression Exercise-induced asthma Kidney stone on right side Severe dysmenorrhea Surgical History History of third molar tooth extraction History of tonsillectomy Hx of laparoscopy (10/31/17) Status post appendectomy Status post loop electrosurgical excision procedure (LEEP) of cervix alcohol intake frequency: a few times a month Substance Use Type: does not use Exam Initial Vital Signs Initial Vital Signs: Vital Signs Temperature 98.9 F 08/11/20 18:28 Pulse Rate 84 08/11/20 18:28 Respiratory Rate 20 08/11/20 18:28 Blood Pressure 137/86 08/11/20 18:28 Pulse Oximetry 100 08/11/20 18:28 GENERAL: Patient appears in pain HEENT: Head atraumatic,EOMI, pupils reactive, face symmetric, moist mucous membranes CARDIOVASCULAR: Regular rate and rhythm without murmurs, rubs or gallops. RESPIRATORY: Breath sounds equal bilaterally, no wheezes rales or rhonchi. ABDOMEN: Soft, nontender. Normoactive bowel sounds all 4 quadrants. No guarding or rebound. : Right CVA tenderness EXTREMITIES: Normal range of motion, no clubbing or edema. Neurovascularly intact NEUROLOGICAL: Alert and oriented x4.Normal gait and speech. SKIN: Warm, dry, no laceration, no petechiae, no rashes or lesions. Course Orders Ordered: ED Orders 08/11/20 18:45 Complete Blood Count AUTO DIFF Stat Comprehensive Metabolic Panel Stat Discontinued Medications Sodium Chloride (Normal Saline 0.9%) 1,000 mls @ 1,000 mls/hr IV BOLUS ONE Stop: 08/11/20 19:48 Last Infusion: 08/11/20 19:10 Dose: 0 mls/hr Documented by: Admin: 08/11/20 19:02 Dose: 1,000 mls/hr Documented by: CHARBEL Lidocaine HCl 4.4 ml/ Sodium (Chloride) 54.4 mls @ 326.4 mls/hr IV NOW ONE Stop: 08/11/20 19:09 Ketorolac Tromethamine (Ketorolac 30 Mg/Ml Vial) 15 mg IV NOW ONE Stop: 08/11/20 18:38 Last Admin: 08/11/20 18:44 Dose: 15 mg Documented by: EDWARD Vital Signs Vital signs: Vital Signs - 8 hr 08/11/20 18:28 Temperature 98.9 F Pulse Rate 84 Respiratory Rate 20 Blood Pressure 137/86 Pulse Oximetry 100 MDM - Female Genitourinary Lab Data Attestation: I reviewed the patient's lab results. Result diagrams: 08/11/20 18:45 08/11/20 18:45 Labs: Lab Results 08/11/20 08/11/20 Range/Units 18:45 18:45 WBC 8.9 (4.5-11.0) X10^3/uL RBC 4.30 (4.0-5.2) X10^6/uL Hgb 14.2 (12.0-16.0) g/dL Hct 41.4 (36-46) % MCV 96.2 (80-100) fL MCH 32.9 (26-34) PG MCHC 34.2 (30-36) % RDW 13.2 (11.6-14.8) % Plt Count 348 (150-400) X10^3/uL Neut % (Auto) 53.3 (50-75) % Lymph % (Auto) 35.6 (25-40) % [place] % (Auto) 8.5 (3-14) % Eos % (Auto) 1.2 L (2-4) % Baso % (Auto) 1.4 (0-2) % Neut # (Auto) 4700 (9554-2493) /uL Lymph # (Auto) 3200 (7393-7202) /uL [place] # (Auto) 800 (0-900) /uL Eos # (Auto) 100 (0-450) /uL Baso # (Auto) 100 (0-100) /uL Sodium 139 (137-145) mmol/L Potassium 4.1 (3.4-5.1) mmol/L Chloride 104 (98-107) mmol/L Carbon Dioxide 24 (22-32) mmol/L BUN 14 (7-17) mg/dL Creatinine 0.71 (0.52-1.04) mg/dL Estimated GFR > 60.0 (>60) mL/min BUN/Creatinine Ratio 19.7 (6-22) Glucose 78 (70-100) mg/dL Calcium 9.5 (8.4-10.2) mg/dL Total Bilirubin 0.3 (0.2-1.3) mg/dL AST 27 (14-36) IU/L ALT 12 (<35) IU/L Alkaline Phosphatase 55 (38-126) U/L Total Protein 8.0 (6.3-8.2) g/dL Albumin 4.7 (3.5-5.0) g/dL Globulin 3.3 (1.7-4.1) g/dL Albumin/Globulin Ratio 1.4 (1.0-2.8) MDM Narrative Medical decision making narrative: Patient had IV blood work and given Toradol she got up to use the restroom, requested to have the IV removed and left the emergency department. Discharge Plan Departure Patient Disposition: Left Against Medical Advice Clinical Impression: Left against medical advice Prescriptions: No Action cholecalciferol (vitamin D3) PO RF: 0 Referrals: Lilia Evans MD [Primary Care Provider] - Stand Alone Forms: Against Medical Advice
[2020-08-11 19:07] LABS: Alanine Aminotransferase 12 IU/L (<35); Albumin 4.7 g/dL (3.5-5.0); Albumin Globulin Ratio 1.4 (1.0-2.8); Alkaline Phosphatase 55 U/L (38-126); Aspartate Aminotransferase 27 IU/L (14-36); BUN Creatinine Ratio 19.7 (6-22); Bilirubin Total 0.3 mg/dL (0.2-1.3); Blood Urea Nitrogen 14 mg/dL (7-17); Calcium 9.5 mg/dL (8.4-10.2); Carbon Dioxide 24 mmol/L (22-32); Chloride 104 mmol/L (98-107); Estimated Glomerular Filt Rate > 60.0 mL/min (>60); Globulin 3.3 g/dL (1.7-4.1); Glucose 78 mg/dL (70-100); HEMOLYSIS < 15 (0-50); Potassium 4.1 mmol/L (3.4-5.1); Sodium 139 mmol/L (137-145)
--- NOTE | 2020-08-11 19:10 | PC.NURSE ---
PT asked Michael SUAREZ to remove IV states I'm leaving.
[2020-08-11] MEDS: ONDANSETRON 4 MG/2 ML INJ (19:28)
== END 2020-08-11 19:11 | disposition left against medical advice (07) ==
PROVIDERS: Emergency Provider Emergency Medicine; PCP Family Medicine
DX: R10.9 Unspecified abdominal pain (principal); Z87.442 Personal history of urinary calculi
CPT/HCPCS: 36415; 80053; 85025; 96374; 99284; J1885; J2405

== ENCOUNTER 2020-12-19 23:16 | Emergency (ER) | payer OTHER, SELFPAY ==
[2020-12-19 23:22] VITALS: BMI 22.3
[2020-12-19 23:29] VITALS: BP 166/104; PULSE 90; RESP 12; TEMP 36.9; O2SAT 98
--- NOTE | 2020-12-19 23:30 | DI.CT.S_ITS ---
PROCEDURE: CT KIDNEY URETER BLADDER (KUB) INDICATIONS: rt flank pain TECHNIQUE: Axial sections were acquired from the lung bases to the pubic symphysis. Coronal and sagittal reformats were performed. For radiation dose reduction, the following was used: automated exposure control, adjustment of mA and/or kV according to patient size. COMPARISON: [facility], CT, CT KIDNEY URETER BLADDER (KUB), 05/17/2020, 23:40. FINDINGS: Lower thorax: The lung bases are clear. Heart size normal. No hiatal hernia. Liver: Normal in size and attenuation. No contour deformity present. Biliary system: No calcified cholelithiasis or pericholecystic inflammation. No intra or extrahepatic bile duct dilatation. Pancreas: Unremarkable without mass or inflammation evident. Spleen: Normal in size and density. Adrenals: Normal morphology and density. Reproductive system: Unremarkable as visualized. Urinary system: Bilateral nonobstructive renal calculi measure up to 3 mm on the right and 6 mm on the left. No evidence of hydronephrosis or hydroureter. Urinary bladder unremarkable. Gastrointestinal system: Moderate fecal debris throughout the colon. No evidence of bowel obstruction. Appendix: No findings to suggest acute appendicitis. Peritoneal spaces: No mesenteric or retroperitoneal adenopathy. No free air. No free fluid. Vasculature: The IVC, aorta and iliac vasculature are unremarkable. Musculoskeletal: Normal bone mineralization. No acute fractures. Abdominal wall intact without evidence of ventral or inguinal hernias. IMPRESSION: 1. Bilateral nonobstructive renal calculi without evidence of hydronephrosis or obstructive uropathy. Unremarkable urinary bladder. 2. Moderate fecal debris throughout the right and transverse colon without obstruction. Approved by: Huy Lopez M.D. on 12/20/2020 at 0:07
--- NOTE | 2020-12-19 23:31 | ED_ITS ---
HPI - Abdominal Pain General Chief Complaint: Urogenital-Female Stated Complaint: kidney pain right side Time Seen by Provider: 12/19/20 23:29 Source: patient Mode of arrival: Ambulatory Limitations: no limitations History of Present Illness HPI narrative: Patient complains of right flank pain. Onset 1 hour ago. H istory kidney stones and lithotripsy. No recent illness fever chills. No nausea. No hematuria. Patient here with partner. Related Data Home Medications Medication Instructions Recorded Confirmed cholecalciferol (vitamin D3) PO 01/29/20 05/31/20 Previous Rx's Medication Instructions Recorded cephalexin 500 mg capsule 500 mg PO TID #15 cap 12/20/20 hydrocodone 5 mg-acetaminophen 325 1 tab PO Q6H PRN #10 tab 12/20/20 mg tablet ondansetron 4 mg disintegrating 4 mg PO Q8H PRN #10 tab 12/20/20 tablet tamsulosin 0.4 mg capsule 0.4 mg PO DAILY #7 cap 12/20/20 Allergies Allergy/AdvReac Type Severity Reaction Status Date / Time prochlorperazine Allergy Intermediate Hallucinati Verified 05/31/20 17:34 ng Review of Systems Review of Systems Narrative: GENERAL: Denies chills, fatigue, malaise, fever, sweats. HEENT: Denies sinus pain, ear pain, sore throat RESPIRATORY: Denies dyspnea, cough CARDIOVASCULAR: Denies chest pain, palpitations GASTROINTESTINAL: Denies nausea, vomiting, abdominal pain, positive for flank pain : Denies dysuria, frequency, hematuria MUSCULOSKELETAL: denies muscle or bony pain SKIN: Denies rash, skin lesions NEUROLOGIC: Denies weakness, numbness ROS Unobtainable: All systems reviewed & are unremarkable except as noted in HPI and below Patient History Medical History Anxiety Depression Exercise-induced asthma Kidney stone on right side Severe dysmenorrhea Surgical History History of third molar tooth extraction History of tonsillectomy Hx of laparoscopy (10/31/17) Status post appendectomy Status post loop electrosurgical excision procedure (LEEP) of cervix Social History marital status: household members: family Smoking Status: Never smoker alcohol intake: current substance use type: does not use Smoking Status: Never smoker alcohol intake frequency: a few times a month Substance Use Type: does not use Exam Narrative Exam Narrative: GENERAL: in no distress, not toxic not dyspneic HEAD: Normocephalic. NECK: Trachea midline. CARDIOVASCULAR: Regular rate and rhythm without murmurs RESPIRATORY: Clear to auscultation. Breath sounds equal bilaterally. No wheezes, rales, or rhonchi. EXTREMITIES: No gross deformities. BACK: Mild right CVA tenderness NEURO: AOx4. SKIN: Warm and dry PSYCH: Not anxious, is cooperative Initial Vital Signs Initial Vital Signs: Vital Signs Temperature 98.4 F 12/19/20 23:29 Pulse Rate 90 12/19/20 23:29 Respiratory Rate 12 12/19/20 23:29 Blood Pressure 166/104 H 12/19/20 23:29 Pulse Oximetry 98 12/19/20 23:29 Course Course Course Narrative: No new issues during course of stay. Orders Ordered: Discontinued Medications Cephalexin HCl (Cephalexin 250 Mg Capsule) 500 mg PO NOW ONE Stop: 12/20/20 01:25 Last Admin: 12/20/20 01:40 Dose: 500 mg Documented by: PANTERA Hydromorphone HCl (Hydromorphone 1 Mg Inj) 1 mg IV NOW ONE Stop: 12/19/20 23:50 Last Admin: 12/19/20 23:52 Dose: 1 mg Documented by: ALYSSA Sodium Chloride (Normal Saline 0.9%) 1,000 mls @ 1,000 mls/hr IV BOLUS ONE Stop: 12/20/20 00:28 Last Infusion: 12/20/20 01:20 Dose: 0 mls/hr Documented by: Admin: 12/19/20 23:47 Dose: 1,000 mls/hr Documented by: ALYSSA Ketorolac Tromethamine (Ketorolac 30 Mg/Ml Vial) 15 mg IV NOW ONE Stop: 12/19/20 23:30 Last Admin: 12/19/20 23:46 Dose: 15 mg Documented by: ALYSSA Lorazepam (Lorazepam 2 Mg/Ml Inj) 0.5 mg IV NOW ONE Stop: 12/20/20 00:22 Last Admin: 12/20/20 00:30 Dose: 0.5 mg Documented by: ALYSSA Morphine Sulfate (Morphine 4 Mg/Ml Inj) 4 mg IV NOW ONE Stop: 12/19/20 23:30 Last Admin: 12/19/20 23:45 Dose: 4 mg Documented by: ALYSSA Morphine Sulfate (Morphine 4 Mg/Ml Inj) 4 mg IV NOW ONE Stop: 12/20/20 01:43 Last Admin: 12/20/20 01:45 Dose: 4 mg Documented by: PANTERA Ondansetron HCl (Ondansetron 4 Mg/2 Ml Inj) 4 mg IV NOW ONE Stop: 12/19/20 23:30 Last Admin: 12/19/20 23:46 Dose: 4 mg Documented by: ALYSSA Tamsulosin HCl (Tamsulosin 0.4 Mg Capsule) 0.4 mg PO NOW ONE Stop: 12/20/20 01:25 Last Admin: 12/20/20 01:40 Dose: 0.4 mg Documented by: PANTERA Reevaluation(s) Reevaluation #1: Reviewed results with patient. Could be very small stone that passed very quickly without any secondary signs. There is hematuria. Also will treat for possible UTI. Patient agrees with treatment plan. Patient was more comfortable than on arrival. Lying down on bed with partner. Time: 01:24 Vital Signs Vital signs: Vital Signs - 8 hr 12/19/20 23:29 Temperature 98.4 F Pulse Rate 90 Respiratory Rate 12 Blood Pressure 166/104 H Pulse Oximetry 98 MDM - Abdominal Pain Differential Diagnosis Differential diagnosis: Likely abdominal pain, acute appendicitis, calculus of kidney, constipation, small bowel obstruction and other (UTI) Lab Data Result diagrams: 12/19/20 23:30 12/19/20 23:30 Labs: Lab Results 12/19/20 12/19/20 12/19/20 Range/Units 23:30 23:30 23:31 WBC 12.1 H (4.5-11.0) X10^3/uL RBC 4.65 (4.0-5.2) X10^6/uL Hgb 15.3 (12.0-16.0) g/dL Hct 45.3 (36-46) % MCV 97.4 (80-100) fL MCH 32.8 (26-34) PG MCHC 33.7 (30-36) % RDW 12.9 (11.6-14.8) % Plt Count 358 (150-400) X10^3/uL Neut % (Auto) 71.5 (50-75) % Lymph % (Auto) 20.3 L (25-40) % [place] % (Auto) 6.4 (3-14) % Eos % (Auto) 0.5 L (2-4) % Baso % (Auto) 1.3 (0-2) % Neut # (Auto) 8700 H (6927-8468) /uL Lymph # (Auto) 2500 (5212-4951) /uL [place] # (Auto) 800 (0-900) /uL Eos # (Auto) 100 (0-450) /uL Baso # (Auto) 200 H (0-100) /uL Sodium 147 H (137-145) mmol/L Potassium 3.8 (3.4-5.1) mmol/L Chloride 109 H (98-107) mmol/L Carbon Dioxide 24 (22-32) mmol/L BUN 10 (7-17) mg/dL Creatinine 0.69 (0.52-1.04) mg/dL Estimated GFR > 60.0 (>60) mL/min BUN/Creatinine Ratio 14.5 (6-22) Glucose 105 H (70-100) mg/dL Calcium 9.5 (8.4-10.2) mg/dL Total Bilirubin 0.4 (0.2-1.3) mg/dL AST 26 (14-36) IU/L ALT 14 (<35) IU/L Alkaline Phosphatase 55 (38-126) U/L Total Protein 8.8 H (6.3-8.2) g/dL Albumin 5.1 H (3.5-5.0) g/dL Globulin 3.7 (1.7-4.1) g/dL Albumin/Globulin Ratio 1.4 (1.0-2.8) Urine RBC 1-5/hpf (0-5/HPF) Urine WBC 5-10/hpf H (0-5/HPF) Ur Squamous Epith Cells 1-5 /hpf (0-5/HPF) Urine Bacteria Moderate (10-30) H (None) Ur Culture Indicated? Specimen cultured Urine Test (Negative) 12/19/20 Range/Units 23:31 WBC (4.5-11.0) X10^3/uL RBC (4.0-5.2) X10^6/uL Hgb (12.0-16.0) g/dL Hct (36-46) % MCV (80-100) fL MCH (26-34) PG MCHC (30-36) % RDW (11.6-14.8) % Plt Count (150-400) X10^3/uL Neut % (Auto) (50-75) % Lymph % (Auto) (25-40) % [place] % (Auto) (3-14) % Eos % (Auto) (2-4) % Baso % (Auto) (0-2) % Neut # (Auto) (9871-7120) /uL Lymph # (Auto) (1192-6977) /uL [place] # (Auto) (0-900) /uL Eos # (Auto) (0-450) /uL Baso # (Auto) (0-100) /uL Sodium (137-145) mmol/L Potassium (3.4-5.1) mmol/L Chloride (98-107) mmol/L Carbon Dioxide (22-32) mmol/L BUN (7-17) mg/dL Creatinine (0.52-1.04) mg/dL Estimated GFR (>60) mL/min BUN/Creatinine Ratio (6-22) Glucose (70-100) mg/dL Calcium (8.4-10.2) mg/dL Total Bilirubin (0.2-1.3) mg/dL AST (14-36) IU/L ALT (<35) IU/L Alkaline Phosphatase (38-126) U/L Total Protein (6.3-8.2) g/dL Albumin (3.5-5.0) g/dL Globulin (1.7-4.1) g/dL Albumin/Globulin Ratio (1.0-2.8) Urine RBC (0-5/HPF) Urine WBC (0-5/HPF) Ur Squamous Epith Cells (0-5/HPF) Urine Bacteria (None) Ur Culture Indicated? Urine Test Negative (Negative) Point of care testing: Urine Dip Bedside Urine Glucose Negative Bedside Urine Bilirubin - Negative Bedside Urine Ketone - Negative Urine Specific [place] 1.005 Bedside Urine Occult Blood + Bedside Urine pH 6 Bedside Urine Protein - Negative Bedside Urine Urobilinogen - Negative Bedside Urine Nitrite - Negative Bedside Urine Leukocytes ++ [address] scan - abdomen/pelvis: Radiologist's Impression: [address] [address] [address] Scan Report Signed Patient: Jeana Almeida MR#: [id number] : 1980 Acct:[id number] Age/Sex: 40 / F Date of Service: 12/19/20 Loc: ED Accession Number: [id number] ?? Procedure: CT kidney ureter bladder (KUB) Ordering Provider: Rakesh Veronica MD PROCEDURE:? CT KIDNEY URETER BLADDER (KUB) ? INDICATIONS:? rt flank pain ? TECHNIQUE:? Axial sections were acquired from the lung bases to the pubic symphysis.? Coronal and sagittal reformats were performed.? For radiation dose reduction, the following was used: ?automated exposure control, adjustment of mA and/or kV according to patient size.? ? COMPARISON:? [facility], CT, CT KIDNEY URETER BLADDER (KUB), 05/17/2020, 23:40. ? FINDINGS: ? Lower thorax: The lung bases are clear.? Heart size normal. No hiatal hernia. ? Liver:? Normal in size and attenuation. No contour deformity present. ? Biliary system:? No calcified cholelithiasis or pericholecystic inflammation. No intra or extrahepatic bile duct dilatation. ? Pancreas:? Unremarkable without mass or inflammation evident. ? Spleen:? Normal in size and density. ? Adrenals:? Normal morphology and density. ? Reproductive system:? Unremarkable as visualized. ? Urinary system:? Bilateral nonobstructive renal calculi measure up to 3 mm on the right and 6 mm on the left.? No evidence of hydronephrosis or hydroureter.? Urinary bladder unremarkable. ? Gastrointestinal system:? Moderate fecal debris throughout the colon.? No evidence of bowel obstruction. ? Appendix:? No findings to suggest acute appendicitis. ? Peritoneal spaces:? No mesenteric or retroperitoneal adenopathy.? No free air.? No free fluid.? ? Vasculature:? The IVC, aorta and iliac vasculature are unremarkable. ? Musculoskeletal:? Normal bone mineralization.? No acute fractures.? Abdominal wall intact without evidence of ventral or inguinal hernias. ? IMPRESSION: ? 1. Bilateral nonobstructive renal calculi without evidence of hydronephrosis or obstructive uropathy.? Unremarkable urinary bladder. ? 2. Moderate fecal debris throughout the right and transverse colon without obstruction. ? Approved by: Huy Lopez M.D. on 12/20/2020 at 0:07? MDM Narrative Medical decision making narrative: Appropriate for discharge home. 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 Could be small very small stone that passed but leaving no hydronephrosis or secondary signs. There is hematuria. Also patient agreeable for treatment for UTI. Did review stool retention on the right colon On CT scan which can cause colicky pain. Return precautions reviewed with patient. Given patient referral for Urology as well. Not toxic at discharge Discharge Plan Departure Patient Disposition: Home Clinical Impression: Acute flank pain Urinary tract infection Qualifiers: Urinary tract infection type: site unspecified Hematuria presence: with hematuria Qualified Code(s): N39.0 - Urinary tract infection, site not specified Hematuria Qualifiers: Hematuria type: unspecified type Qualified Code(s): R31.9 - Hematuria, unspecified Instructions: DI for Kidney Stones, DI for Urinary Tract Infection (UTI), DI for Hematuria Activity Restrictions/Additional Instructions: No driving or operating machinery tonight. Call provided urology office on Tuesday for office recheck for hematuria and urinary tract infection and kidney stones. Return if worsening questions or concerns. Continue antibiotic prescription tomorrow. Prescriptions: New hydrocodone-acetaminophen 5-325 mg tablet 1 tab PO Q6H PRN (Reason: pain) Qty: 10 RF: 0 tamsulosin 0.4 mg capsule 0.4 mg PO DAILY Qty: 7 RF: 0 cephalexin 500 mg capsule 500 mg PO TID Qty: 15 RF: 0 ondansetron 4 mg tablet,disintegrating 4 mg PO Q8H PRN (Reason: nausea and vomiting) Qty: 10 RF: 0 No Action cholecalciferol (vitamin D3) PO RF: 0 Referrals: Rakesh Evans MD [Physician] - Lilia Evans MD [Primary Care Provider] -
[2020-12-19 23:43] LABS: Add Manual Diff / Slide Review NO; Basophils Absolute Auto 200 /uL (0-100); Basophils Percent Auto 1.3 % (0-2); Eosinophils Absolute Auto 100 /uL (0-450); Eosinophils Percent Auto 0.5 % (2-4); Hematocrit 45.3 % (36-46); Hemoglobin 15.3 g/dL (12.0-16.0); Lymphocytes Absolute Auto 2500 /uL (1100-4500); Lymphocytes Percent Auto 20.3 % (25-40); Mean Corpuscular HGB Conc 33.7 % (30-36); Mean Corpuscular Hemoglobin 32.8 PG (26-34); Mean Corpuscular Volume 97.4 fL (80-100); Monocytes Absolute Auto 800 /uL (0-900); Monocytes Percent Auto 6.4 % (3-14); Neutrophils Absolute Auto 8700 /uL (1500-7000); Neutrophils Percent Auto 71.5 % (50-75); Platelet Count 358 X10^3/uL (150-400); Red Blood Cell Count 4.65 X10^6/uL (4.0-5.2); Red Cell Distribution Width 12.9 % (11.6-14.8); White Blood Cell Count 12.1 X10^3/uL (4.5-11.0)
[2020-12-19] MEDS: MORPHINE 4 MG/ML INJ IV (23:45)
[2020-12-19] MEDS: KETOROLAC 30 MG/ML VIAL 15 MG IV (23:46)
[2020-12-19] MEDS: ONDANSETRON 4 MG/2 ML INJ IV (23:46)
[2020-12-19] MEDS: SODIUM CHLORIDE 0.9% 1,000 ML 1000 ML IV (23:47)
[2020-12-19 23:49] LABS: Alanine Aminotransferase 14 IU/L (<35); Albumin 5.1 g/dL (3.5-5.0); Albumin Globulin Ratio 1.4 (1.0-2.8); Alkaline Phosphatase 55 U/L (38-126); Aspartate Aminotransferase 26 IU/L (14-36); BUN Creatinine Ratio 14.5 (6-22); Bilirubin Total 0.4 mg/dL (0.2-1.3); Blood Urea Nitrogen 10 mg/dL (7-17); Calcium 9.5 mg/dL (8.4-10.2); Carbon Dioxide 24 mmol/L (22-32); Chloride 109 mmol/L (98-107); Estimated Glomerular Filt Rate > 60.0 mL/min (>60); Globulin 3.7 g/dL (1.7-4.1); Glucose 105 mg/dL (70-100); HEMOLYSIS < 15 (0-50); Potassium 3.8 mmol/L (3.4-5.1); Sodium 147 mmol/L (137-145); Total Protein 8.8 g/dL (6.3-8.2)
[2020-12-19] MEDS: HYDROMORPHONE 1 MG INJ IV (23:52)
--- NOTE | 2020-12-19 23:57 | PC.NURSE ---
Pt reported little relief after 4mg IV morphine, still unable to sit still for CT, reporting severe pain. Dr Veronica notified, order received for 1mg IV dilaudid. Pt medicated, now lying in bed, reports some relief.
[2020-12-20 00:22] LABS: Bacteria Urine Moderate (10-30); Culture Indicated Urine Specimen Cultured; RBC Urine 1-5/HPF (0-5/HPF); Squamous Epithelial Cell Urine 1-5 /HPF (0-5/HPF); WBC Urine 5-10/HPF (0-5/HPF)
[2020-12-20] MEDS: LORazepam 2 MG/ML INJ 0.5 MG IV (00:30)
[2020-12-20 01:16] LABS: Pregnancy Test Urine Negative (Negative)
[2020-12-20] MEDS: cephALEXin 250 MG CAPSULE 500 MG PO (01:40)
[2020-12-20] MEDS: TAMSULOSIN 0.4 MG CAPSULE PO (01:40)
[2020-12-20] MEDS: MORPHINE 4 MG/ML INJ IV (01:45)
[2020-12-20 01:56] VITALS: BP 145/64; PULSE 74; RESP 18; O2SAT 99
== END 2020-12-20 01:58 | disposition home or self-care (01) ==
PROVIDERS: Emergency Provider Emergency Medicine; PCP Family Medicine
DX: N39.0 Urinary tract infection, site not specified (principal); R31.9 Hematuria, unspecified; R10.9 Unspecified abdominal pain
CPT/HCPCS: 36415; 74176; 80053; 81003; 81015; 81025; 85025; 87086; 96361; 96374; 96375; 96376; 99284; J1170; J1885; J2060; J2270; J2405

== ENCOUNTER → 2021-01-25 15:00 | Outpatient (CLI) | payer OTHER, SELFPAY ==
[2021-01-25 15:37] LABS: COVID19 -Nasal RAPID Negative (Negative)
== END ==
PROVIDERS: PCP Family Medicine; Referring Provider Nurse Practitioner Family; Visit Provider Nurse Practitioner Family
DX: R43.9 Unspecified disturbances of smell and taste (principal); U09.9 Post COVID-19 condition, unspecified; Z20.822 Contact with and (suspected) exposure to COVID-19; J02.9 Acute pharyngitis, unspecified
CPT/HCPCS: 87635

== ENCOUNTER → 2021-04-07 13:21 | Outpatient (CLI) | payer OTHER, SELFPAY ==
--- NOTE | 2021-04-07 | DI.RAD.S_ITS ---
PROCEDURE: XR CHEST 2V INDICATIONS: Post COVID-19 condition, unspecified TECHNIQUE: 2 views of the chest were acquired. COMPARISON: [facility], , CHEST 2 VIEW, 12/31/2010, 2:44. FINDINGS: Surgical changes and devices: None. Lungs and pleura: Lungs are clear. No pleural effusions or pneumothorax. Mediastinum: Mediastinal contours are normal. Heart size is normal. Bones and chest wall: No suspicious bony abnormalities. Soft tissues appear unremarkable. IMPRESSION: No acute cardiopulmonary disease. Dictated by: Julien Harper M.D. on 04/07/2021 at 16:04 Approved by: Julien Harper M.D. on 04/07/2021 at 16:04
== END ==
PROVIDERS: PCP Family Medicine; Referring Provider Family Medicine; Visit Provider Family Medicine
DX: R05.1 Acute cough (principal); U09.9 Post COVID-19 condition, unspecified
CPT/HCPCS: 71046

== ENCOUNTER → 2021-07-22 16:27 | Outpatient (CLI) | payer OTHER, SELFPAY ==
[2021-07-22 17:50] LABS: Hemoglobin A1C% w Est Avg Glu 5.2 % (4.0-6.0)
[2021-07-22 17:51] LABS: Alanine Aminotransferase 14 IU/L (<35); Albumin 4.7 g/dL (3.5-5.0); Albumin Globulin Ratio 1.5 (1.0-2.8); Alkaline Phosphatase 46 U/L (38-126); Aspartate Aminotransferase 27 IU/L (14-36); BUN Creatinine Ratio 20.6 (6-22); Bilirubin Total 0.6 mg/dL (0.2-1.3); Blood Urea Nitrogen 14 mg/dL (7-17); C-Reactive Protein Quant < 0.5 mg/dL (<1.0); Calcium 9.5 mg/dL (8.4-10.2); Carbon Dioxide 28 mmol/L (22-32); Chloride 106 mmol/L (98-107); Estimated Glomerular Filt Rate > 60 mL/min (>60); Globulin 3.1 g/dL (1.7-4.1); Glucose 93 mg/dL (70-100); HEMOLYSIS < 15 (0-50); Potassium 4.6 mmol/L (3.4-5.1); Sodium 138 mmol/L (137-145); Total Protein 7.8 g/dL (6.3-8.2)
[2021-07-22 17:56] LABS: Add Manual Diff / Slide Review NO; Basophils Absolute Auto 0 /uL (0-100); Basophils Percent Auto 0.7 % (0-2); Eosinophils Absolute Auto 100 /uL (0-450); Eosinophils Percent Auto 1.2 % (2-4); Hematocrit 40.9 % (36-46); Hemoglobin 13.9 g/dL (12.0-16.0); Lymphocytes Absolute Auto 1900 /uL (1100-4500); Lymphocytes Percent Auto 30.7 % (25-40); Mean Corpuscular Hemoglobin 32.2 PG (26-34); Mean Corpuscular Volume 94.8 fL (80-100); Monocytes Absolute Auto 600 /uL (0-900); Monocytes Percent Auto 8.7 % (3-14); Neutrophils Absolute Auto 3700 /uL (1500-7000); Neutrophils Percent Auto 58.7 % (50-75); Platelet Count 337 X10^3/uL (150-400); Red Blood Cell Count 4.31 X10^6/uL (4.0-5.2); Red Cell Distribution Width 12.8 % (11.6-14.8); White Blood Cell Count 6.3 X10^3/uL (4.5-11.0)
[2021-07-22 18:03] LABS: Follicle Stimulating Hormone 6.28 mIU/mL
[2021-07-22 18:13] LABS: Monotest Negative (Negative)
[2021-07-22 18:18] LABS: TSH w/ Reflex to FT4 1.22 uIU/mL (0.47-4.68)
[2021-07-22 18:40] LABS: Vitamin B12 574 pg/mL (239-931)
== END ==
PROVIDERS: PCP Family Medicine; Referring Provider Family Medicine; Visit Provider Family Medicine
DX: R53.83 Other fatigue (principal); R55 Syncope and collapse; Z11.3 Encounter for screening for infections with a predominantly sexual mode of transmission; U09.9 Post COVID-19 condition, unspecified
CPT/HCPCS: 36415; 80053; 82607; 83001; 83036; 84443; 85025; 86140; 86318

== ENCOUNTER 2022-10-09 00:28 | Emergency (ER) | payer OTHER, SELFPAY ==
[2022-10-09] VITALS (8 sets, daily range): BP systolic 99–123; BP diastolic 61–77; PULSE 71–107; RESP 14–18; TEMP 36.2; O2SAT 97–100
--- NOTE | 2022-10-09 00:40 | DI.RAD.S_ITS ---
PROCEDURE: XR CHEST 1V INDICATIONS: chest pain TECHNIQUE: One view of the chest was acquired. COMPARISON: [facility], CR, XR CHEST 2V, 04/07/2021, 13:25. FINDINGS: Surgical changes and devices: None. Lungs and pleura: Lungs are clear. No pleural effusions or pneumothorax. Mediastinum: Mediastinal contours appear normal. Heart size is normal. Bones and chest wall: No suspicious bony lesions. Overlying soft tissues appear unremarkable. IMPRESSION: Portable chest within normal limits. Dictated by: Ian Mazariegos M.D. on 10/09/2022 at 0:59 Approved by: Ian Mazariegos M.D. on 10/09/2022 at 0:59
[2022-10-09] MEDS: SODIUM CHLORIDE 0.9% 1,000 ML 1000 ML IV (00:44)
[2022-10-09] MEDS: ONDANSETRON 4 MG/2 ML INJ IV (00:44)
[2022-10-09 00:49] LABS: Add Manual Diff / Slide Review NO; Basophils Absolute Auto 100 /uL (0-100); Basophils Percent Auto 0.7 % (0-2); Eosinophils Absolute Auto 0 /uL (0-450); Eosinophils Percent Auto 0.5 % (2-4); Hematocrit 38.4 % (36-46); Hemoglobin 13.3 g/dL (12.0-16.0); Lymphocytes Absolute Auto 2700 /uL (1100-4500); Lymphocytes Percent Auto 33.8 % (25-40); Mean Corpuscular HGB Conc 34.5 % (30-36); Mean Corpuscular Volume 95.6 fL (80-100); Monocytes Absolute Auto 500 /uL (0-900); Monocytes Percent Auto 6.4 % (3-14); Neutrophils Absolute Auto 4600 /uL (1500-7000); Neutrophils Percent Auto 58.6 % (50-75); Platelet Count 349 X10^3/uL (150-400); Red Blood Cell Count 4.02 X10^6/uL (4.0-5.2); White Blood Cell Count 7.9 X10^3/uL (4.5-11.0)
[2022-10-09 00:51] LABS: Prothrombin Time 11.9 SECONDS (10.1-12.7)
[2022-10-09 00:54] LABS: PTT Partial Thromboplastin Tim 29 SECONDS (26-36)
[2022-10-09 00:57] LABS: Alanine Aminotransferase 17 IU/L (<35); Albumin 4.6 g/dL (3.5-5.0); Albumin Globulin Ratio 1.4 (1.0-2.8); Alkaline Phosphatase 40 U/L (38-126); Aspartate Aminotransferase 27 IU/L (14-36); BUN Creatinine Ratio 13.8 (6-22); Bilirubin Total 0.6 mg/dL (0.2-1.3); Blood Urea Nitrogen 9 mg/dL (7-17); Calcium 9.1 mg/dL (8.4-10.2); Carbon Dioxide 20 mmol/L (22-32); Chloride 108 mmol/L (98-107); Creatine Kinase 59 U/L (30-135); Estimated Glomerular Filt Rate > 60 mL/min (>60); Globulin 3.4 g/dL (1.7-4.1); Glucose 132 mg/dL (70-100); HEMOLYSIS 45 (0-50); Lipase 70 U/L (23-300); Magnesium 2.1 mg/dL (1.6-2.3); Potassium 3.5 mmol/L (3.4-5.1); Sodium 140 mmol/L (137-145)
[2022-10-09 01:07] LABS: Troponin I < 0.012 ng/mL (0.01-0.034)
[2022-10-09] MEDS: LORazepam 2 MG/ML INJ 0.5 MG IV ×2 (01:08→02:05)
--- NOTE | 2022-10-09 01:08 | ED.GENADULT ---
HPI - General Adult General Chief complaint: Toxicology Problem Stated complaint: Anxiety- dry heaving- doesn't feel right Time Seen by Provider: 10/09/22 01:00 Source: patient and EMS Mode of arrival: EMS History of Present Illness HPI narrative: this is a 42-year-old female with history of multiple kidney stones, appendectomy hysterectomy presenting with complaint of not feeling right, feeling very anxious tense unable to fully stretch out her body. Patient reported to medic she had 2 beers this evening then smoked marijuana for the 1st time and she states shortly thereafter started feeling this way. Patient states that she did not feel ill or unwell prior. She has not had similar episode in the past. She denies any pain currently. No shortness of breath. She is nauseated she did vomit and had some very dark emesis. She denies diarrhea or constipation. She denies any urinary symptoms. She feels very tense and like she can not function right and that is something is wrong. No daily medications, allergy to prochlorperazine. Patient has had prior appendectomy and hysterectomy, She drinks occasionally, states this is her 1st she said marijuana no other recreational drugs. Dr. Evans is her primary care. Related Data Home Medications Medication Instructions Recorded Confirmed cholecalciferol (vitamin D3) PO 01/29/20 05/31/20 Previous Rx's Medication Instructions Recorded cephalexin 500 mg capsule 500 mg PO TID #15 caps 12/20/20 hydrocodone 5 mg-acetaminophen 325 1 tab PO Q6H PRN pain #10 tabs 12/20/20 mg tablet ondansetron 4 mg disintegrating 4 mg PO Q8H PRN nausea and 12/20/20 tablet vomiting #10 tabs tamsulosin 0.4 mg capsule 0.4 mg PO DAILY #7 caps 12/20/20 Allergies Allergy/AdvReac Type Severity Reaction Status Date / Time prochlorperazine Allergy Intermediate Hallucinati Verified 10/09/22 00:37 ng Review of Systems Review of Systems ROS Unobtainable: All systems reviewed & are unremarkable except as noted in HPI and below Patient History Medical History Anxiety Depression Exercise-induced asthma Kidney stone on right side Severe dysmenorrhea Surgical History History of third molar tooth extraction History of tonsillectomy Hx of laparoscopy (10/31/17) Status post appendectomy Status post loop electrosurgical excision procedure (LEEP) of cervix Social History marital status: household members: family Smoking Status: Never smoker alcohol intake: current substance use type: does not use Smoking Status: Never smoker alcohol intake frequency: a few times a month Substance Use Type: marijuana Exam Narrative Exam Narrative: GEN: well nourished, well appearing female, alert and oriented x [3, patient appears to be in moderate distress. Patient appears quite uncomfortable. Clear speech. HEENT: Atraumatic, pupils are equal round reactive to light, extraocular movements are intact, nares are clear, TMs are clear with no fluid, there is no conjunctival pallor. Throat is clear without any exudates, erythema, tonsillar enlargement or uvular deviation HEART: Regular rate and rhythm without murmur, clicks, rubs. LUNGS:Lungs clear to auscultation, no wheezes, rales, crackles, chest moves symmetrically ABD:bowel sounds normal, soft, non-tender, no guarding, rebound, rigidity, no masses noted, no hepatosplenomegaly :No CVA tenderness MSCL: Non-tender, no muscle atrophy, muscles strength 5/5 upper and lower extremities, full range of motion NEURO:CN 2-12 intact, sensation normal SKIN: No rash, no erythema or other skin changes. Initial Vital Signs Initial Vital Signs: Vital Signs Temperature 97.1 F L 10/09/22 00:37 Pulse Rate 107 H 10/09/22 00:37 Respiratory Rate 18 10/09/22 00:37 Blood Pressure 110/77 10/09/22 00:37 Pulse Oximetry 97 10/09/22 00:37 Oxygen Delivery Method Room Air 10/09/22 00:37 Course Orders Ordered: ED Orders 10/09/22 00:38 Complete Blood Count AUTO DIFF Stat Comprehensive Metabolic Panel Stat ETOH [Ethanol (ETOH)] Stat Lipase Stat Magnesium Stat PTT Partial Thromboplastin Levon Stat Prothrombin Time INR Stat Troponin & CK Cardiac Panel Stat 10/09/22 00:40 XR chest 1V Stat 10/09/22 01:06 EKG-12 Lead Stat Discontinued Medications Sodium Chloride (Normal Saline 0.9%) 1,000 mls @ 1,000 mls/hr IV BOLUS ONE Stop: 10/09/22 01:40 Last Infusion: 10/09/22 02:09 Dose: 0 mls/hr Documented By: Admin: 10/09/22 00:44 Dose: 1,000 mls/hr Documented By: Lorazepam (Lorazepam 2 Mg/Ml Inj) 0.5 mg IV NOW ONE Stop: 10/09/22 01:01 Last Admin: 10/09/22 01:08 Dose: 0.5 mg Documented By: Lorazepam (Lorazepam 2 Mg/Ml Inj) 0.5 mg IV NOW ONE Stop: 10/09/22 01:55 Last Admin: 10/09/22 02:05 Dose: 0.5 mg Documented By: Ondansetron HCl (Ondansetron 4 Mg/2 Ml Inj) 4 mg IV NOW ONE Stop: 10/09/22 00:42 Last Admin: 10/09/22 00:44 Dose: 4 mg Documented By: Ondansetron HCl (Ondansetron 4 Mg Odt Prepack) 1 bottle MISC SEEINSTR ONE Stop: 10/09/22 04:51 Last Admin: 10/09/22 06:12 Dose: 1 bottle Documented By: Vital Signs Vital signs: Vital Signs - 8 hr 10/09/22 00:37 10/09/22 01:08 10/09/22 01:45 Temperature 97.1 F L Pulse Rate 107 H 85 86 Respiratory Rate 18 14 14 Blood Pressure 110/77 99/63 104/66 Pulse Oximetry 97 99 97 Oxygen Delivery Method Room Air Room Air Room Air 10/09/22 02:09 10/09/22 02:46 10/09/22 03:41 Temperature Pulse Rate 95 H 78 71 Respiratory Rate 14 14 14 Blood Pressure 123/75 117/70 105/61 Pulse Oximetry 97 100 100 Oxygen Delivery Method Room Air Room Air Room Air 10/09/22 05:01 10/09/22 06:30 Temperature Pulse Rate 103 H 88 Respiratory Rate 14 14 Blood Pressure 122/65 109/61 Pulse Oximetry 99 100 Oxygen Delivery Method Room Air Room Air Medical Decision Making Lab Data 10/09/22 00:38 10/09/22 00:38 Labs: Lab Results 10/09/22 10/09/22 10/09/22 Range/Units 00:38 00:38 00:38 WBC 7.9 (4.5-11.0) X10^3/uL RBC 4.02 (4.0-5.2) X10^6/uL Hgb 13.3 (12.0-16.0) g/dL Hct 38.4 (36-46) % MCV 95.6 (80-100) fL MCH 33.0 (26-34) PG MCHC 34.5 (30-36) % RDW 13.0 (11.6-14.8) % Plt Count 349 (150-400) X10^3/uL Neut % (Auto) 58.6 (50-75) % Lymph % (Auto) 33.8 (25-40) % Broome % (Auto) 6.4 (3-14) % Eos % (Auto) 0.5 L (2-4) % Baso % (Auto) 0.7 (0-2) % Neut # (Auto) 4600 (9606-8624) /uL Lymph # (Auto) 2700 (4427-1569) /uL Broome # (Auto) 500 (0-900) /uL Eos # (Auto) 0 (0-450) /uL Baso # (Auto) 100 (0-100) /uL PT 11.9 (10.1-12.7) SECONDS INR 1.0 (0.9-1.3) APTT 29 (26-36) SECONDS Sodium 140 (137-145) mmol/L Potassium 3.5 (3.4-5.1) mmol/L Chloride 108 H (98-107) mmol/L Carbon Dioxide 20 L (22-32) mmol/L BUN 9 (7-17) mg/dL Creatinine 0.65 (0.52-1.04) mg/dL Estimated GFR > 60 (>60) mL/min BUN/Creatinine Ratio 13.8 (6-22) Glucose 132 H (70-100) mg/dL Calcium 9.1 (8.4-10.2) mg/dL Magnesium 2.1 (1.6-2.3) mg/dL Total Bilirubin 0.6 (0.2-1.3) mg/dL AST 27 (14-36) IU/L ALT 17 (<35) IU/L Alkaline Phosphatase 40 (38-126) U/L Total Creatine Kinase 59 (30-135) U/L Troponin I < 0.012 (0.01-0.034) ng/mL Total Protein 8.0 (6.3-8.2) g/dL Albumin 4.6 (3.5-5.0) g/dL Globulin 3.4 (1.7-4.1) g/dL Albumin/Globulin Ratio 1.4 (1.0-2.8) Lipase 70 (23-300) U/L Ethyl Alcohol ( - 10) mg/dL 10/09/22 Range/Units 00:38 WBC (4.5-11.0) X10^3/uL RBC (4.0-5.2) X10^6/uL Hgb (12.0-16.0) g/dL Hct (36-46) % MCV (80-100) fL MCH (26-34) PG MCHC (30-36) % RDW (11.6-14.8) % Plt Count (150-400) X10^3/uL Neut % (Auto) (50-75) % Lymph % (Auto) (25-40) % Broome % (Auto) (3-14) % Eos % (Auto) (2-4) % Baso % (Auto) (0-2) % Neut # (Auto) (7301-2257) /uL Lymph # (Auto) (5031-4861) /uL Broome # (Auto) (0-900) /uL Eos # (Auto) (0-450) /uL Baso # (Auto) (0-100) /uL PT (10.1-12.7) SECONDS INR (0.9-1.3) APTT (26-36) SECONDS Sodium (137-145) mmol/L Potassium (3.4-5.1) mmol/L Chloride (98-107) mmol/L Carbon Dioxide (22-32) mmol/L BUN (7-17) mg/dL Creatinine (0.52-1.04) mg/dL Estimated GFR (>60) mL/min BUN/Creatinine Ratio (6-22) Glucose (70-100) mg/dL Calcium (8.4-10.2) mg/dL Magnesium (1.6-2.3) mg/dL Total Bilirubin (0.2-1.3) mg/dL AST (14-36) IU/L ALT (<35) IU/L Alkaline Phosphatase (38-126) U/L Total Creatine Kinase (30-135) U/L Troponin I (0.01-0.034) ng/mL Total Protein (6.3-8.2) g/dL Albumin (3.5-5.0) g/dL Globulin (1.7-4.1) g/dL Albumin/Globulin Ratio (1.0-2.8) Lipase (23-300) U/L Ethyl Alcohol 155 H ( - 10) mg/dL Imaging Data Chest x-ray: Radiologist's Impression: Close Chest X-Ray (Signed) Ian Mazariegos - 10/09/22 Chest X-Ray (Signed) Arely Harper - 04/07/21 Abdomen/Pelvis CT (Signed) Huy Lopez - 12/19/20 Pelvis Ultrasound (Signed) Eliezer Chaves - 05/18/20 Abdomen/Pelvis CT (Signed) Eliezer Chaves - 05/17/20 Abdomen Ultrasound (Signed) Ian Mazariegos - 11/16/19 Pelvis Ultrasound (Signed) Brandyn Rosa - 09/13/19 Cervical Spine X-Ray (Signed) Brandyn Rosa - 12/08/18 Pelvis Ultrasound (Signed) Arely Harper - 08/09/18 Launch?[address] [address] XRay Report Signed Patient: Jeana Almeida MR#: [id number] : 1980 Acct:[id number] Age/Sex: 42 / F Date of Service: 10/09/22 Loc: ED Accession Number: [id number] ?? Procedure: XR chest 1V Ordering Provider: Rebeca Cook D.O. PROCEDURE:? XR CHEST 1V ? INDICATIONS:? chest pain ? TECHNIQUE:? One view of the chest was acquired.? ? COMPARISON:? [facility], , XR CHEST 2V, 04/07/2021, 13:25. ? FINDINGS:? ? Surgical changes and devices:? None.? ? Lungs and pleura:? Lungs are clear.? No pleural effusions or pneumothorax.? ? Mediastinum:? Mediastinal contours appear normal.? Heart size is normal.? ? Bones and chest wall:? No suspicious bony lesions.? Overlying soft tissues appear unremarkable.? ? ? IMPRESSION:? ? Portable chest within normal limits. ? ? ? Dictated by: Ian Mazariegos M.D. on 10/09/2022 at 0:59 ? ? Approved by: Ian Mazariegos M.D. on 10/09/2022 at 0:59?? ECG Data Attestation: I personally reviewed and interpreted this ECG as follows: Prior ECG tracings: available for review Interpretation: Rhythm rate of 90 W[place] 164 QRS of [address] elevation depression noted. Patient had prior from 2020 which was sinus tachycardia but similar ST segments. MDM Narrative Medical decision making narrative: 42-year-old female who developed symptoms after having 2 beers and smoking marijuana, patient appears to likely be having a reaction to THC but will search for other causes as well patient is slightly tachycardic initially, afebrile kind of 97% room air. Patient had 0.5 mg of Ativan which was moderately helpful, had 1 L NS as well as Zofran and had an additional 0.5mg Ativan and is now resting more comfortably. Patient has not had any persistent vomiting. CBC, coags are negative. Chloride 108 CO2 20 glucose of 132 on CMP negative LFTs, negative troponin. Reviewed patient's findings, suspect THC with alcohol intoxication or contributing to patient's symptoms. Discussed patient's workup with her she would like to return home at this time. We will send with Zofran prepack and return precautions. Patient had second Liter while waiting for possible transport. Ambulating afterwards without issue. No additional emesis. Discharge Plan Departure Patient Disposition: Home Clinical Impression: Vomiting Instructions: DI for Vomiting -- Adult Activity Restrictions/Additional Instructions: I hope you continue to feel better. You can take zofran 1 tablet every 6 hours as needed for nausea. Please return if you are feeling worse, having new chest pain, shortness of breath, passing out, having persistent vomiting, black or bloody stools, lightheadedness or passing out or other new or concerning changes. Prescriptions: No Action cholecalciferol (vitamin D3) PO hydrocodone-acetaminophen 5-325 mg tablet 1 tab PO Q6H PRN (Reason: pain) Qty: 10 0RF tamsulosin 0.4 mg capsule 0.4 mg PO DAILY Qty: 7 0RF cephalexin 500 mg capsule 500 mg PO TID Qty: 15 0RF ondansetron 4 mg tablet,disintegrating 4 mg PO Q8H PRN (Reason: nausea and vomiting) Qty: 10 0RF Referrals: Lilia Evans MD [Primary Care Provider] - Stand Alone Forms: Patient Portal/API
[2022-10-09 01:19] LABS: Ethanol (ETOH) 155 mg/dL
[2022-10-09] MEDS: ONDANSETRON 4 MG ODT PREPACK 1 BOTTLE MISC (06:12)
== END 2022-10-09 06:30 | disposition home or self-care (01) ==
PROVIDERS: Emergency Provider Emergency Medicine; PCP Family Medicine
DX: R11.10 Vomiting, unspecified (principal); R07.9 Chest pain, unspecified; F12.929 Cannabis use, unspecified with intoxication, unspecified; R00.0 Tachycardia, unspecified
CPT/HCPCS: 36415; 71045; 80053; 80320; 82550; 83690; 83735; 84484; 85025; 85610; 85730; 93005; 96361; 96374; 96375; 96376; 99284; J2060; J2405

== ENCOUNTER → 2022-11-09 08:53 | Outpatient (CLI) | payer OTHER, SELFPAY ==
[2022-11-09 11:57] LABS: Urine N gonorrhoeae NOT DETECTED
[2022-11-09 11:58] LABS: Urine Chlamydia NOT DETECTED
== END ==
PROVIDERS: PCP Family Medicine; Visit Provider Physician Assistant
DX: N39.0 Urinary tract infection, site not specified (principal); R30.0 Dysuria
CPT/HCPCS: 87086; 87491; 87591

== ENCOUNTER 2022-11-09 10:32 | Emergency (ER) | payer OTHER, SELFPAY ==
[2022-11-09 10:38] VITALS: BP 133/92; PULSE 107; O2SAT 98
[2022-11-09 10:44] VITALS: BP 133/92; PULSE 94; RESP 18; TEMP 36.8; O2SAT 99; BMI 19.7
--- NOTE | 2022-11-09 10:49 | DI.US.S_ITS ---
PROCEDURE: US RENAL COMPLETE INDICATIONS: LEFT FLANK PAIN TECHNIQUE: Real-time scanning was performed of the kidneys and bladder, with image documentation. COMPARISON: [facility], US, RENAL COMPLETE, 12/30/2014, 23:17. [facility], CR, XR ABDOMEN 1V, 11/09/2022, 10:56. FINDINGS: Kidneys: Kidneys are normal in size. Right kidney measures 10.8 cm long; left kidney measures 11.2 cm long. Right renal cortical thickness is 1.1 cm; left renal cortical thickness is 1.5 cm. Renal cortical echotexture is normal. No hydronephrosis. No suspicious solid mass lesions. Nonobstructing left-sided kidney stones are seen that measure up to 4 mm. Bladder: Pre-void bladder volume is 43 mL. Post-void residual is 4 mL. Pre-void images demonstrate no intraluminal masses or stones. On pre-void images, both ureteral jets are noted with color Doppler interrogation. (Of note, ureteral jets may not be detectable in up to 25% of cases due to insufficient differences in specific gravity between ureteral and bladder urine). Miscellaneous: No free pelvic fluid. IMPRESSION: Negative for hydronephrosis on either side. Nonobstructing left-sided kidney stones can be seen. Trivial postvoid residual, 4 cc. Dictated by: Ian Mazariegos M.D. on 11/09/2022 at 11:19 Approved by: Ian Mazariegos M.D. on 11/09/2022 at 11:20
--- NOTE | 2022-11-09 10:49 | DI.RAD.S_ITS ---
PROCEDURE: XR ABDOMEN 1V INDICATIONS: Constipation lower abdominal pain TECHNIQUE: One view of the abdomen acquired. COMPARISON: None. FINDINGS: Surgical changes and devices: None. Bowel: Moderate fecal debris in the left colon and rectum. No obstruction. Soft tissues: Stippled calcifications noted over both renal shadows Bones: No suspicious bony lesions. IMPRESSION: Moderate fecal debris in the left colon without obstruction. Nephrolithiasis Approved by: Huy Lopez M.D. on 11/09/2022 at 11:19
--- NOTE | 2022-11-09 10:50 | ED.GENADULT ---
HPI - General Adult General Chief complaint: Abdominal Pain Stated complaint: sent by [facility] flank pain Time Seen by Provider: 11/09/22 10:35 Source: patient Mode of arrival: Ambulatory Limitations: no limitations History of Present Illness HPI narrative: Patient is a 42-year-old female. Has had multiple right-sided kidney stones in the past. She went to the walk-in clinic this morning for concerns pressure in her suprapubic region and also left flank pain. She also states she has had GI issues recently. Has had some constipation. She took stool softener last evening. She went to the walk-in clinic this morning. Had a urinalysis performed which did not show any signs of a UTI. Gonorrhea and chlamydia tests are still pending. He is not had any vomiting. She went home after that visit. She actually states that her left flank symptoms have improved. She is still having some nausea and the suprapubic tenderness. She does feel like she is emptying her bladder when she urinates. She has had a partial hysterectomy. Related Data Home Medications Medication Instructions Recorded Confirmed cholecalciferol (vitamin D3) PO 01/29/20 05/31/20 Previous Rx's Medication Instructions Recorded cephalexin 500 mg capsule 500 mg PO TID #15 caps 12/20/20 hydrocodone 5 mg-acetaminophen 325 1 tab PO Q6H PRN pain #10 tabs 12/20/20 mg tablet ondansetron 4 mg disintegrating 4 mg PO Q8H PRN nausea and 12/20/20 tablet vomiting #10 tabs tamsulosin 0.4 mg capsule 0.4 mg PO DAILY #7 caps 12/20/20 Allergies Allergy/AdvReac Type Severity Reaction Status Date / Time prochlorperazine Allergy Intermediate Hallucinati Verified 11/09/22 10:43 ng Review of Systems Gastrointestinal Gastrointestinal: Reports system reviewed and no additional complaints, except as documented Genitourinary Genitourinary: Reports system reviewed and no additional complaints, except as documented Musculoskeletal Musculoskeletal: Reports system reviewed and no additional complaints, except as documented Integumentary/Breasts Skin/Breast: Reports system reviewed and no additional complaints, except as documented Hematologic/Lymphatic On Anticoagulants: No Patient History Medical History Anxiety Depression Exercise-induced asthma Kidney stone on right side Severe dysmenorrhea Surgical History History of third molar tooth extraction History of tonsillectomy Hx of laparoscopy (10/31/17) Status post appendectomy Status post loop electrosurgical excision procedure (LEEP) of cervix Social History marital status: household members: family Smoking Status: Never smoker alcohol intake: current substance use type: does not use Smoking Status: Never smoker alcohol intake frequency: a few times a month Substance Use Type: marijuana Exam Initial Vital Signs Initial Vital Signs: Vital Signs Pulse Rate 107 H 11/09/22 10:38 Blood Pressure 133/92 H 11/09/22 10:38 Pulse Oximetry 98 11/09/22 10:38 HENMT Head: normal to inspection and normocephalic Resp Effort & Inspection: normal respiratory effort Cardio Rate: regular rate GI Inspection: normal to inspection and non-distended Palpation: soft and tender (Suprapubic) Back/Spine/Pelvis Back: No CVA tenderness Neuro General: patient alert and patient awake Extrem General: normal to inspection and capillary refill normal Course Orders Ordered: ED Orders 11/09/22 10:45 Complete Blood Count AUTO DIFF Stat Comprehensive Metabolic Panel Stat Lipase Stat 11/09/22 10:49 US renal complete Stat XR abdomen 1V Stat 11/09/22 11:36 Urine Culture Stat Urine Microscopic Stat Discontinued Medications Sodium Chloride (Normal Saline 0.9%) 1,000 mls @ 1,000 mls/hr IV BOLUS ONE Stop: 11/09/22 12:28 Last Admin: 11/09/22 11:41 Dose: 1,000 mls/hr Documented By: JARAD Ketorolac Tromethamine (Ketorolac 30 Mg/Ml Vial) 30 mg IV NOW ONE Stop: 11/09/22 11:30 Last Admin: 11/09/22 11:36 Dose: 30 mg Documented By: JARAD Ondansetron HCl (Ondansetron 4 Mg/2 Ml Inj) 4 mg IV NOW ONE Stop: 11/09/22 10:50 Last Admin: 11/09/22 11:36 Dose: 4 mg Documented By: JARAD Vital Signs Vital signs: Vital Signs - 8 hr 11/09/22 10:44 11/09/22 10:38 11/09/22 10:38 Temperature 98.3 F Pulse Rate 94 H 107 H Respiratory Rate 18 Blood Pressure 133/92 H 133/92 H Pulse Oximetry 99 98 Oxygen Delivery Method Room Air 11/09/22 11:00 11/09/22 11:00 11/09/22 11:30 Temperature Pulse Rate 84 Respiratory Rate Blood Pressure 144/80 H 122/70 Pulse Oximetry 99 Oxygen Delivery Method 11/09/22 11:30 11/09/22 12:00 11/09/22 12:00 Temperature Pulse Rate 67 63 Respiratory Rate Blood Pressure 128/77 Pulse Oximetry 100 100 Oxygen Delivery Method 11/09/22 12:30 11/09/22 12:30 Temperature Pulse Rate 62 Respiratory Rate Blood Pressure 136/77 Pulse Oximetry 100 Oxygen Delivery Method Medical Decision Making Medical Records Medical records reviewed: Yes I reviewed the patient's medical records. Lab Data Lab results reviewed: Yes I reviewed the patient's lab results. 11/09/22 10:45 11/09/22 10:45 Labs: Lab Results 11/09/22 11/09/22 11/09/22 Range/Units 10:45 10:45 11:36 WBC 12.4 H (4.5-11.0) X10^3/uL RBC 4.59 (4.0-5.2) X10^6/uL Hgb 14.9 (12.0-16.0) g/dL Hct 44.0 (36-46) % MCV 95.9 (80-100) fL MCH 32.5 (26-34) PG MCHC 33.9 (30-36) % RDW 13.1 (11.6-14.8) % Plt Count 375 (150-400) X10^3/uL Neut % (Auto) 84.7 H (50-75) % Lymph % (Auto) 9.1 L (25-40) % [place] % (Auto) 4.8 (3-14) % Eos % (Auto) 0.1 L (2-4) % Baso % (Auto) 1.3 (0-2) % Neut # (Auto) 11111 H (9989-4151) /uL Lymph # (Auto) 1100 (0707-3778) /uL [place] # (Auto) 600 (0-900) /uL Eos # (Auto) 0 (0-450) /uL Baso # (Auto) 200 H (0-100) /uL Sodium 138 (137-145) mmol/L Potassium 3.6 (3.4-5.1) mmol/L Chloride 103 (98-107) mmol/L Carbon Dioxide 24 (22-32) mmol/L BUN 6 L (7-17) mg/dL Creatinine 0.67 (0.52-1.04) mg/dL Estimated GFR > 60 (>60) mL/min BUN/Creatinine Ratio 9.0 (6-22) Glucose 111 H (70-100) mg/dL Calcium 10.0 (8.4-10.2) mg/dL Total Bilirubin 1.1 (0.2-1.3) mg/dL AST 26 (14-36) IU/L ALT 15 (<35) IU/L Alkaline Phosphatase 54 (38-126) U/L Total Protein 8.7 H (6.3-8.2) g/dL Albumin 5.1 H (3.5-5.0) g/dL Globulin 3.6 (1.7-4.1) g/dL Albumin/Globulin Ratio 1.4 (1.0-2.8) Lipase 83 (23-300) U/L Urine RBC 10-30/hpf H (0-5/HPF) Urine WBC 1-5/hpf (0-5/HPF) Ur Squamous Epith Cells 5-10 /hpf H (0-5/HPF) Urine Bacteria Few (2-10) H (None) Ur Culture Indicated? Specimen cultured Urine Dip Bedside Urine Glucose Negative Bedside Urine Bilirubin - Negative Bedside Urine Ketone - Negative Urine Specific [place] 1.005 Bedside Urine Occult Blood +++ Bedside Urine pH 7.5 Bedside Urine Protein - Negative Bedside Urine Urobilinogen - Negative Bedside Urine Nitrite - Negative Bedside Urine Leukocytes +/- 15 Esterase Point of care testing: Urine Dip Bedside Urine Glucose Negative Bedside Urine Bilirubin - Negative Bedside Urine Ketone - Negative Urine Specific [place] 1.005 Bedside Urine Occult Blood +++ Bedside Urine pH 7.5 Bedside Urine Protein - Negative Bedside Urine Urobilinogen - Negative Bedside Urine Nitrite - Negative Bedside Urine Leukocytes +/- 15 Esterase Imaging Data renal US: Radiologist's Impression: PROCEDURE:? US RENAL COMPLETE ? INDICATIONS:? LEFT FLANK PAIN ? TECHNIQUE:? Real-time scanning was performed of the kidneys and bladder, with image documentation.? ? COMPARISON:? Merged With [facility], , RENAL COMPLETE, 12/30/2014, 23:17.? Merged With [facility], , XR ABDOMEN 1V, 11/09/2022, 10:56. ? FINDINGS:? ? Kidneys:? Kidneys are normal in size.? Right kidney measures 10.8 cm long; left kidney measures 11.2 cm long.? Right renal cortical thickness is 1.1 cm; left renal cortical thickness is 1.5 cm.? Renal cortical echotexture is normal.? No hydronephrosis.? No suspicious solid mass lesions.? ? Nonobstructing left-sided kidney stones are seen that measure up to 4 mm. ? Bladder:? Pre-void bladder volume is 43 mL.? Post-void residual is 4 mL.? Pre-void images demonstrate no intraluminal masses or stones.? On pre-void images, both ureteral jets are noted with color Doppler interrogation.? (Of note, ureteral jets may not be detectable in up to 25% of cases due to insufficient differences in specific gravity between ureteral and bladder urine).? ? Miscellaneous:? No free pelvic fluid.? IMPRESSION:? Negative for hydronephrosis on either side. ? Nonobstructing left-sided kidney stones can be seen. ? Trivial postvoid residual, 4 cc. Abdominal x-ray: Radiologist's Impression: PROCEDURE:? XR ABDOMEN 1V ? INDICATIONS:? Constipation lower abdominal pain ? TECHNIQUE:? One view of the abdomen acquired.? ? COMPARISON:? None. ? FINDINGS:? ? Surgical changes and devices:? None.? ? Bowel:? Moderate fecal debris in the left colon and rectum.? No obstruction. ? Soft tissues:? Stippled calcifications noted over both renal shadows ? Bones:? No suspicious bony lesions.? ? IMPRESSION:? ? Moderate fecal debris in the left colon without obstruction. ? Nephrolithiasis MDM Narrative Medical decision making narrative: Patient has a longstanding history of kidney stones although she is never had 1 on the left. She is actually now asymptomatic from what she was earlier today. She does have blood in her urine but no signs of urinary tract infection. Review of her urinalysis and GC and chlamydia from earlier in the day are negative. Her renal ultrasound shows no hydro. She does have a left-sided renal stone which I do not think is causing her symptoms today. Her x-ray does show stool in the descending colon which very well could be the cause of her symptoms and corresponds to her degree of constipation per her report. We discussed obtaining a CT scan however I do feel that we should hold on this today. She is had multiple CT scans in the past. Will have the patient follow-up with her primary doctor to make sure that her hematuria has improved. She was given return precautions. She expressed understanding and agreement. Discharge Plan Departure Patient Disposition: Home Clinical Impression: Hematuria, Acute left flank pain Instructions: DI for Hematuria Activity Restrictions/Additional Instructions: Recommend that you continue to take all of your medications as directed. I also recommend that you start on either a stool softener or a laxative. You are going to need follow-up once your symptoms have resolved to make sure that the blood that was in your urine has cleared. Your primary doctor can do this. Return to the emergency department for new or worsening symptoms. Prescriptions: No Action cholecalciferol (vitamin D3) PO hydrocodone-acetaminophen 5-325 mg tablet 1 tab PO Q6H PRN (Reason: pain) Qty: 10 0RF tamsulosin 0.4 mg capsule 0.4 mg PO DAILY Qty: 7 0RF cephalexin 500 mg capsule 500 mg PO TID Qty: 15 0RF ondansetron 4 mg tablet,disintegrating 4 mg PO Q8H PRN (Reason: nausea and vomiting) Qty: 10 0RF Referrals: Lilia Evans MD [Primary Care Provider] - Stand Alone Forms: Patient Portal/API
[2022-11-09 11:00] VITALS: BP 144/80; PULSE 84; O2SAT 99
[2022-11-09 11:06] LABS: Add Manual Diff / Slide Review NO; Basophils Absolute Auto 200 /uL (0-100); Basophils Percent Auto 1.3 % (0-2); Eosinophils Absolute Auto 0 /uL (0-450); Eosinophils Percent Auto 0.1 % (2-4); Hemoglobin 14.9 g/dL (12.0-16.0); Lymphocytes Absolute Auto 1100 /uL (1100-4500); Lymphocytes Percent Auto 9.1 % (25-40); Mean Corpuscular HGB Conc 33.9 % (30-36); Mean Corpuscular Hemoglobin 32.5 PG (26-34); Mean Corpuscular Volume 95.9 fL (80-100); Monocytes Absolute Auto 600 /uL (0-900); Monocytes Percent Auto 4.8 % (3-14); Neutrophils Absolute Auto 10500 /uL (1500-7000); Neutrophils Percent Auto 84.7 % (50-75); Platelet Count 375 X10^3/uL (150-400); Red Blood Cell Count 4.59 X10^6/uL (4.0-5.2); Red Cell Distribution Width 13.1 % (11.6-14.8); White Blood Cell Count 12.4 X10^3/uL (4.5-11.0)
[2022-11-09 11:12] LABS: Alanine Aminotransferase 15 IU/L (<35); Albumin 5.1 g/dL (3.5-5.0); Albumin Globulin Ratio 1.4 (1.0-2.8); Alkaline Phosphatase 54 U/L (38-126); Aspartate Aminotransferase 26 IU/L (14-36); Bilirubin Total 1.1 mg/dL (0.2-1.3); Blood Urea Nitrogen 6 mg/dL (7-17); Carbon Dioxide 24 mmol/L (22-32); Chloride 103 mmol/L (98-107); Estimated Glomerular Filt Rate > 60 mL/min (>60); Globulin 3.6 g/dL (1.7-4.1); Glucose 111 mg/dL (70-100); HEMOLYSIS < 15 (0-50); Lipase 83 U/L (23-300); Potassium 3.6 mmol/L (3.4-5.1); Sodium 138 mmol/L (137-145); Total Protein 8.7 g/dL (6.3-8.2)
[2022-11-09 11:30] VITALS: BP 122/70; PULSE 67; O2SAT 100
[2022-11-09] MEDS: KETOROLAC 30 MG/ML VIAL IV (11:36)
[2022-11-09] MEDS: ONDANSETRON 4 MG/2 ML INJ IV (11:36)
[2022-11-09] MEDS: SODIUM CHLORIDE 0.9% 1,000 ML 1000 ML IV (11:41)
[2022-11-09 12:00] VITALS: BP 128/77; PULSE 63; O2SAT 100
[2022-11-09 12:03] LABS: RBC Urine 10-30/HPF (0-5/HPF)
[2022-11-09 12:04] LABS: Bacteria Urine Few (2-10); Culture Indicated Urine Specimen Cultured; Squamous Epithelial Cell Urine 5-10 /HPF (0-5/HPF); WBC Urine 1-5/HPF (0-5/HPF)
[2022-11-09 12:30] VITALS: BP 136/77; PULSE 62; O2SAT 100
== END 2022-11-09 12:53 | disposition home or self-care (01) ==
PROVIDERS: Emergency Provider Emergency Medicine; PCP Family Medicine
DX: R10.30 Lower abdominal pain, unspecified (principal); R31.9 Hematuria, unspecified; N39.0 Urinary tract infection, site not specified; R30.0 Dysuria
CPT/HCPCS: 36415; 74018; 76770; 80053; 81003; 81015; 83690; 85025; 87086; 87491; 87591; 96374; 96375; 99284; J1885; J2405

== ENCOUNTER → 2023-03-26 10:28 | Outpatient (CLI) | payer OTHER, SELFPAY ==
--- NOTE | 2023-03-26 | DI.MG.S_ITS ---
BILATERAL DIGITAL SCREENING MAMMOGRAM 3D/2D WITH CAD: 03/26/2023 CLINICAL: Routine screening. Baseline exam. No prior exams were available for comparison. Both breasts are extremely dense, which lowers the sensitivity of mammography (category d />75% glandular tissue). Current study was also evaluated with a Computer Aided Detection (CAD) system. There is possible architectural distortion in the left breast at 1 o'clock middle depth. No other significant masses, calcifications, or other findings are seen in either breast. IMPRESSION: INCOMPLETE: NEEDS ADDITIONAL IMAGING EVALUATION The possible architectural distortion in the left breast is indeterminate. Additional views with possible ultrasound are recommended. Based on Tyrer-Cuzick model (a risk assessment model), the patient's lifetime risk is 20.1% and her 10 year risk is 3.3%. If a patient has an elevated risk, a more comprehensive evaluation should be considered and/or a referral to a genetic counselor. The [place] [employer], [employer], and NCCN Guidelines advise the consideration of Breast MRI as an adjunct to screening mammography in patients whose Lifetime risk to develop breast cancer is 20% or higher. This exam was interpreted at Station ID: [id number]. NOTE: For mammograms, a report in lay terms will be sent to the patient. Approximately 15% of breast malignancies will not be visualized mammographically. In the management of a palpable breast mass, a negative mammogram must not discourage biopsy of a clinically suspicious lesion. Electronically Signed By: Phuc Corcoran M.D. lc/:03/28/2023 09:02:33 letter sent: Additional Imaging Needed ACR BI-RADS Category 0: Incomplete [id number]
== END ==
LOC: MAMMO 10:32
PROVIDERS: PCP Family Medicine; Referring Provider Family Medicine; Visit Provider Family Medicine
DX: Z12.31 Encounter for screening mammogram for malignant neoplasm of breast (principal); R92.343 Mammographic extreme density, bilateral breasts
CPT/HCPCS: 77063; 77067

== ENCOUNTER → 2023-03-31 13:14 | Outpatient (CLI) | payer OTHER, SELFPAY ==
--- NOTE | 2023-03-31 13:15 | DI.MG.S_ITS ---
UNILATERAL LEFT DIGITAL DIAGNOSTIC MAMMOGRAM 3D/2D WITH ADDITIONAL VIEWS: 03/31/2023 CLINICAL: Additional evaluation requested from prior study. Comparison is made to exam dated: 03/26/2023 mammogram - [facility]. The left breast is extremely dense, which lowers the sensitivity of mammography (category d />75% glandular tissue). The possible architectural distortion in the left breast at 1 o'clock middle depth is not reproduced and presumably represented superimposed breast tissue. This is not seen in additional views. No other significant masses or calcifications are seen in the breast. There has been no significant interval change. IMPRESSION: NEGATIVE There is no mammographic evidence of malignancy. Return to annual mammogram screening schedule is recommended. Based on Tyrer-Cuzick model (a risk assessment model), the patient's lifetime risk is 20.1% and her 10 year risk is 3.3%. If a patient has an elevated risk, a more comprehensive evaluation should be considered and/or a referral to a genetic counselor. The [place] [employer], [employer], and NCCN Guidelines advise the consideration of Breast MRI as an adjunct to screening mammography in patients whose Lifetime risk to develop breast cancer is 20% or higher. This exam was interpreted at Station ID: [id number]. NOTE: For mammograms, a report in lay terms will be sent to the patient. Approximately 15% of breast malignancies will not be visualized mammographically. In the management of a palpable breast mass, a negative mammogram must not discourage biopsy of a clinically suspicious lesion. Electronically Signed By: Miguel dumont/tanya:03/31/2023 14:06:04 letter sent: Normal Exam ACR BI-RADS Category 1: Negative [id number]
== END ==
LOC: MAMMO 13:14
PROVIDERS: PCP Family Medicine; Referring Provider Family Medicine; Visit Provider Family Medicine
DX: R92.8 Other abnormal and inconclusive findings on diagnostic imaging of breast (principal); R92.342 Mammographic extreme density, left breast
CPT/HCPCS: 77065; G0279

== ENCOUNTER → 2023-04-29 15:28 | Outpatient (CLI) | payer OTHER, SELFPAY ==
--- NOTE | 2023-04-29 | DI.US.S_ITS ---
PROCEDURE: US PERIPH VENOUS LOW EXTREM LT INDICATIONS: LEFT LATERAL THIGH WARMTH TECHNIQUE: Real-time imaging, as well as color and pulse Doppler interrogation, were performed of the lower extremity deep veins from the inguinal ligament to the popliteal fossa, with documentation of the visualized calf veins. COMPARISON: None. FINDINGS: The common femoral, femoral, popliteal, and the visualized calf veins are normally compressible, and free of intraluminal thrombus. Color and pulse Doppler demonstrate normal phasic intraluminal flow. There is normal augmentation response to distal compression maneuver. Additional, dedicated ultrasound scanning is performed at the area of clinical concern involving the left lateral thigh. No focal ultrasound abnormalities are seen within this region. IMPRESSION: No findings of lower extremity deep venous thrombosis. No ultrasound abnormalities can be seen at the area of concern involving the left lateral thigh. Dictated by: Ian Mazariegos M.D. on 04/29/2023 at 15:38 Approved by: Ian Mazariegos M.D. on 04/29/2023 at 15:38
== END ==
LOC: US 15:29
PROVIDERS: PCP Family Medicine; Referring Provider Registered Nurse; Visit Provider Registered Nurse
DX: M79.652 Pain in left thigh (principal)
CPT/HCPCS: 93971

== ENCOUNTER → 2023-08-20 11:30 | Outpatient (CLI) | payer OTHER, SELFPAY ==
--- NOTE | 2023-08-20 | DI.RAD.S_ITS ---
PROCEDURE: XR CHEST 2V INDICATIONS: Acute cough. TECHNIQUE: 2 views of the chest were acquired. COMPARISON: [facility], CR, XR CHEST 1V, 10/09/2022, 1:39. FINDINGS: Surgical changes and devices: None. Lungs and pleura: Lungs are clear. No pleural effusions or pneumothorax. Mediastinum: Mediastinal contours are normal. Heart size is normal. Bones and chest wall: No suspicious bony abnormalities. Soft tissues appear unremarkable. IMPRESSION: No acute cardiopulmonary abnormality is seen. No focal infiltrates are seen. Dictated by: Ian Mazariegos M.D. on 08/20/2023 at 11:11 Approved by: Ian Mazariegos M.D. on 08/20/2023 at 11:11
[2023-08-20 17:45] LABS: COVID-19 CEPHEID 4-PLEX PCR Negative (Negative); Influenza A - CEPHEID Flu A NEGATIVE (NEGATIVE); Influenza B - CEPHEID Flu B NEGATIVE (NEGATIVE); Respiratory Syncytial Virus Negative (Negative)
== END ==
PROVIDERS: PCP Family Medicine; Referring Provider Nurse Practitioner Family; Visit Provider Nurse Practitioner Family
DX: R05.1 Acute cough (principal)
CPT/HCPCS: 0241U; 71046

== ENCOUNTER 2024-05-02 22:02 | Emergency (ER) | payer OTHER, SELFPAY ==
[2024-05-02 22:09] VITALS: BP 140/99; PULSE 93; RESP 19; TEMP 36.4; O2SAT 99; BMI 20.5
--- NOTE | 2024-05-02 22:31 | PC.NURSE ---
Pt took PO Toradol 45min ago with no change in pain thus far.
[2024-05-02 22:56] LABS: Add Manual Diff / Slide Review NO; Basophils Absolute Auto 100 /uL (0-100); Basophils Percent Auto 1.1 % (0-2); Eosinophils Absolute Auto 100 /uL (0-450); Eosinophils Percent Auto 0.7 % (2-4); Hematocrit 42.1 % (36-46); Hemoglobin 14.6 g/dL (12.0-16.0); Lymphocytes Absolute Auto 2400 /uL (1100-4500); Lymphocytes Percent Auto 33.7 % (25-40); Mean Corpuscular HGB Conc 34.6 % (30-36); Mean Corpuscular Hemoglobin 32.8 PG (26-34); Mean Corpuscular Volume 94.9 fL (80-100); Monocytes Absolute Auto 600 /uL (0-900); Monocytes Percent Auto 7.7 % (3-14); Neutrophils Absolute Auto 4100 /uL (1500-7000); Neutrophils Percent Auto 56.8 % (50-75); Platelet Count 382 X10^3/uL (150-400); Red Blood Cell Count 4.44 X10^6/uL (4.0-5.2); Red Cell Distribution Width 12.7 % (11.6-14.8); White Blood Cell Count 7.3 X10^3/uL (4.5-11.0)
[2024-05-02 23:08] LABS: Alanine Aminotransferase 18 IU/L (<35); Albumin 4.9 g/dL (3.5-5.0); Albumin Globulin Ratio 1.4 (1.0-2.8); Alkaline Phosphatase 50 U/L (38-126); Aspartate Aminotransferase 31 IU/L (14-36); BUN Creatinine Ratio 14.1 (6-22); Bilirubin Total 0.5 mg/dL (0.2-1.3); Blood Urea Nitrogen 11 mg/dL (7-17); Calcium 9.6 mg/dL (8.4-10.2); Carbon Dioxide 26 mmol/L (22-32); Chloride 105 mmol/L (98-107); Estimated Glomerular Filt Rate > 60 mL/min (>60); Globulin 3.4 g/dL (1.7-4.1); Glucose 95 mg/dL (70-100); HEMOLYSIS < 15 (0-50); Lipase 83 U/L (23-300); Potassium 4.2 mmol/L (3.4-5.1); Sodium 143 mmol/L (137-145); Total Protein 8.3 g/dL (6.3-8.2)
[2024-05-02] MEDS: MORPHINE 4 MG/ML INJ IV (23:20)
[2024-05-02] MEDS: SODIUM CHLORIDE 0.9% 1,000 ML 1000 ML IV (23:20)
--- NOTE | 2024-05-02 23:26 | ED.ABDPAIN ---
HPI - Abdominal Pain General Chief Complaint: Urogenital-Female Stated Complaint: thinks has a kidney stone Time Seen by Provider: 05/02/24 22:34 Source: patient Mode of arrival: Ambulatory History of Present Illness HPI narrative: 43-year-old female with history of kidney stones having passed many kidney stones in the past, sometimes has required intervention, since last urological intervention she has passed half dozen or so stone successfully, now having right-sided flank pain typical of her previous kidney stones, onset at rest 7:00 p.m., with some associated nausea but no vomiting. No fevers or chills. She took oral Toradol about 2 hours later 9:00 p.m.. Related Data Home Medications Medication Instructions Recorded Confirmed dextroamphetamine-amphetamine ER 10 mg PO DAILY 08/21/23 09/02/23 10 mg 24hr capsule,extend release (Adderall XR) Previous Rx's Medication Instructions Recorded amoxicillin 500 mg capsule 500 mg PO BID #20 caps 09/02/23 hydrocodone 5 mg-acetaminophen 325 1 tab PO Q6H PRN pain #7 tabs 05/03/24 mg tablet Allergies Allergy/AdvReac Type Severity Reaction Status Date / Time prochlorperazine Allergy Intermediate Hallucinati Verified 09/02/23 18:33 ng Patient History Medical History Anxiety Depression Exercise-induced asthma Kidney stone on right side Severe dysmenorrhea Surgical History History of third molar tooth extraction History of tonsillectomy Hx of laparoscopy (10/31/17) Status post appendectomy Status post loop electrosurgical excision procedure (LEEP) of cervix Social History marital status: household members: family Smoking Status: Never smoker alcohol intake: current substance use type: does not use Smoking Status: Never smoker alcohol intake frequency: a few times a month Exam Narrative Exam Narrative: GENERAL: Well-developed patient, in mild distress. HEAD: Atraumatic. Normocephalic. EYES: Pupils equal round and reactive. Extraocular motions intact. No scleral icterus. No injection or drainage. ENT: Nose without bleeding, purulent drainage. Throat without erythema, tonsillar hypertrophy or exudate. Airway patent. NECK: Trachea midline. Non tender CARDIOVASCULAR: Regular rate and rhythm without murmurs, gallops, or rubs. RESPIRATORY: Clear to auscultation. Breath sounds equal bilaterally. No wheezes, rales, or rhonchi. GASTROINTESTINAL: Abdomen soft, non-tender, nondistended. EXTREMITIES: No edema or joint tenderness. BACK: Nontender without deformity or crepitance. No flank tenderness. NEURO: AOx3. Motor functions grossly nonfocal SKIN: No rash or erythema of visible areas Initial Vital Signs Initial Vital Signs: Vital Signs Temperature 97.6 F 05/02/24 22:09 Pulse Rate 93 H 05/02/24 22:09 Respiratory Rate 19 05/02/24 22:09 Blood Pressure 140/99 H 05/02/24 22:09 Pulse Oximetry 99 05/02/24 22:09 Oxygen Delivery Method Room Air 05/02/24 22:09 Course Orders Ordered: ED Orders 05/02/24 22:42 CBC Auto Diff [Complete Blood Count AUTO DIFF] Stat CMP [Comprehensive Metabolic Panel] Stat Lipase Stat Discontinued Medications Hydrocodone Bitart/Acetaminophen (Hydrocodone/Acet 5/325 Prepack) 1 bottle MISC DIRECTED ONE Stop: 05/03/24 01:22 Last Admin: 05/03/24 01:31 Dose: 1 bottle Documented By: CALEB Hydromorphone HCl (Hydromorphone 0.5 Mg Inj) 0.5 mg IV NOW ONE Stop: 05/03/24 00:22 Last Admin: 05/03/24 00:31 Dose: 0.5 mg Documented By: LILY Sodium Chloride (Normal Saline 0.9%) 1,000 mls @ 1,000 mls/hr IV BOLUS ONE Stop: 05/03/24 00:15 Last Infusion: 05/03/24 00:05 Dose: Infused Documented By: Admin: 05/02/24 23:20 Dose: 1,000 mls/hr Documented By: LILY Ketorolac Tromethamine (Ketorolac 30 Mg/Ml Vial) 30 mg IM NOW ONE Stop: 05/02/24 23:15 Morphine Sulfate (Morphine 4 Mg/Ml Inj) 4 mg IV NOW ONE Stop: 05/02/24 23:17 Last Admin: 05/02/24 23:20 Dose: 4 mg Documented By: LILY Ondansetron HCl (Ondansetron 4 Mg/2 Ml Inj) 4 mg IV NOW PRN PRN Reason: Nausea And Vomiting Last Admin: 05/03/24 00:31 Dose: 4 mg Documented By: LILY Ondansetron HCl (Ondansetron 4 Mg Odt) 4 mg SL NOW PRN PRN Reason: Nausea And Vomiting Ondansetron HCl (Ondansetron 4 Mg Odt Prepack) 1 bottle MISC DIRECTED ONE Stop: 05/03/24 01:25 Last Admin: 05/03/24 01:31 Dose: 1 bottle Documented By: CALEB Vital Signs Vital signs: Vital Signs - 8 hr 05/02/24 22:09 05/02/24 23:54 05/03/24 01:08 Temperature 97.6 F Pulse Rate 93 H 84 90 Respiratory Rate 19 16 16 Blood Pressure 140/99 H 135/88 124/67 Pulse Oximetry 99 100 98 Oxygen Delivery Method Room Air Room Air Room Air MDM - Abdominal Pain Lab Data Attestation: I reviewed the patient's lab results. Lab results narrative: White blood cell count 7300, hemoglobin 14.6, platelets adequate. Basic metabolic panel unremarkable. Liver functions and LFTs unremarkable. Urine dip negative. Urine test negative. 05/02/24 22:42 05/02/24 22:42 Labs: Lab Results 05/02/24 Range/Units 22:42 WBC 7.3 (4.5-11.0) X10^3/uL RBC 4.44 (4.0-5.2) X10^6/uL Hgb 14.6 (12.0-16.0) g/dL Hct 42.1 (36-46) % MCV 94.9 (80-100) fL MCH 32.8 (26-34) PG MCHC 34.6 (30-36) % RDW 12.7 (11.6-14.8) % Plt Count 382 (150-400) X10^3/uL Neut % (Auto) 56.8 (50-75) % Lymph % (Auto) 33.7 (25-40) % [place] % (Auto) 7.7 (3-14) % Eos % (Auto) 0.7 L (2-4) % Baso % (Auto) 1.1 (0-2) % Neut # (Auto) 4100 (2589-7692) /uL Lymph # (Auto) 2400 (2374-4029) /uL [place] # (Auto) 600 (0-900) /uL Eos # (Auto) 100 (0-450) /uL Baso # (Auto) 100 (0-100) /uL Sodium 143 (137-145) mmol/L Potassium 4.2 (3.4-5.1) mmol/L Chloride 105 (98-107) mmol/L Carbon Dioxide 26 (22-32) mmol/L BUN 11 (7-17) mg/dL Creatinine 0.78 (0.52-1.04) mg/dL Estimated GFR > 60 (>60) mL/min BUN/Creatinine Ratio 14.1 (6-22) Glucose 95 (70-100) mg/dL Calcium 9.6 (8.4-10.2) mg/dL Total Bilirubin 0.5 (0.2-1.3) mg/dL AST 31 (14-36) IU/L ALT 18 (<35) IU/L Alkaline Phosphatase 50 (38-126) U/L Total Protein 8.3 H (6.3-8.2) g/dL Albumin 4.9 (3.5-5.0) g/dL Globulin 3.4 (1.7-4.1) g/dL Albumin/Globulin Ratio 1.4 (1.0-2.8) Lipase 83 (23-300) U/L Point of care testing: Point of Care Testing Test Results Negative Urine Dip Bedside Urine Glucose Negative Bedside Urine Bilirubin - Negative Bedside Urine Ketone - Negative Urine Specific [place] 1.010 Bedside Urine Occult Blood - Negative Bedside Urine pH 8.0 Bedside Urine Protein - Negative Bedside Urine Urobilinogen - Negative Bedside Urine Nitrite - Negative Bedside Urine Leukocytes - Negative Esterase MDM Narrative Medical decision making narrative: 43-year-old female reports history of many recurrent episodes kidney stones, remote prior Urology surgical intervention, subsequent successful passage of stone by her report, now with nontraumatic right-sided flank pain. CT imaging offered, she declined this. X-ray screen to look for stone physician offered, but she thought the stones in the past have not been visible on plain x-ray, declines. IV morphine then Dilaudid, improved pain. She had taken oral Toradol prior to arrival, hold any IV Toradol for now. Symptomatically improved, desire to go home. Home pack pain medication, further hydrocodone sent to her pharmacy to use if needed. Given contact information for local urologists. Return precautions discussed. Home with family. Discharge Plan Departure Patient Disposition: Home Clinical Impression: Right flank pain, History of renal stone Activity Restrictions/Additional Instructions: Ms Almeida, Reported history of numerous episodes of kidney stones, remote urological surgical intervention, but many subsequent stones past without urology intervention, now with acute nontraumatic right flank pain similar to your previous kidney stone episodes. No fevers or chills. Urinalysis without obvious infection. We discussed imaging, declined for now, no CT imaging. We discussed KUB x-ray abdominal imaging but you had reported that your stones were not visible on plain x-rays in the past. IV medications were given to control pain symptoms. Continue to take your oral Toradol anti-inflammatory pain medication. Prescription given for hydrocodone to use if needed. Home pack hydrocodone to use if needed. Follow up with local urologists advised next few days, earlier to this emergency department few develop fever. Contact information given for the office of local urologist. Return earlier to this/nearest emergency department for any change worsening symptoms or any concerns prior. Thank you for allowing our team to evaluatev you tonight. Prescriptions: New hydrocodone-acetaminophen 5-325 mg tablet 1 tab PO Q6H PRN (Reason: pain) Qty: 7 0RF No Action dextroamphetamine-amphetamine [Adderall XR] 10 mg capsule,extended release 24hr 10 mg PO DAILY amoxicillin 500 mg capsule 500 mg PO BID Qty: 20 0RF Referrals: Pepe Hopson DO [Physician] - Rakesh Evans MD [Physician] - Lilia Evans MD [Primary Care Provider] - Stand Alone Forms: Patient Portal/API/Survey
[2024-05-02 23:54] VITALS: BP 135/88; PULSE 84; RESP 16; O2SAT 100
[2024-05-03] MEDS: ONDANSETRON 4 MG/2 ML INJ IV (00:31)
[2024-05-03] MEDS: HYDROMORPHONE 0.5 MG INJ IV (00:31)
[2024-05-03 01:08] VITALS: BP 124/67; PULSE 90; RESP 16; O2SAT 98
[2024-05-03] MEDS: ONDANSETRON 4 MG ODT PREPACK 1 BOTTLE MISC (01:31)
[2024-05-03] MEDS: HYDROCODONE/ACET 5/325 PREPACK 1 BOTTLE MISC (01:31)
== END 2024-05-03 01:35 | disposition home or self-care (01) ==
PROVIDERS: Emergency Provider Emergency Medicine; PCP Family Medicine
DX: R10.9 Unspecified abdominal pain (principal); R11.0 Nausea; Z87.442 Personal history of urinary calculi
CPT/HCPCS: 36415; 80053; 81003; 81025; 83690; 85025; 96361; 96374; 96375; 99284; J1171; J2270; J2405

== ENCOUNTER 2024-07-15 20:31 | Emergency (ER) | payer OTHER, SELFPAY ==
[2024-07-15 20:35] VITALS: BP 135/84; PULSE 97; RESP 18; TEMP 36.4; O2SAT 95; BMI 20.5
[2024-07-15] MEDS: ONDANSETRON 4 MG/2 ML INJ IV (21:16)
[2024-07-15] MEDS: KETOROLAC 30 MG/ML VIAL 15 MG IV (21:27)
[2024-07-15] MEDS: LACTATED RINGERS 1,000 ML 1000 ML IV (21:35)
[2024-07-15 21:42] LABS: Add Manual Diff / Slide Review NO; Basophils Absolute Auto 100 /uL (0-100); Basophils Percent Auto 1.8 % (0-2); Eosinophils Absolute Auto 0 /uL (0-450); Eosinophils Percent Auto 0.4 % (2-4); Hematocrit 41.2 % (36-46); Hemoglobin 14.4 g/dL (12.0-16.0); Lymphocytes Absolute Auto 1800 /uL (1100-4500); Lymphocytes Percent Auto 23.1 % (25-40); Mean Corpuscular HGB Conc 34.9 % (30-36); Mean Corpuscular Hemoglobin 33.5 PG (26-34); Monocytes Absolute Auto 500 /uL (0-900); Neutrophils Absolute Auto 5300 /uL (1500-7000); Neutrophils Percent Auto 67.7 % (50-75); Platelet Count 355 X10^3/uL (150-400); Red Blood Cell Count 4.29 X10^6/uL (4.0-5.2); Red Cell Distribution Width 13.6 % (11.6-14.8); White Blood Cell Count 7.8 X10^3/uL (4.5-11.0)
[2024-07-15] MEDS: HYDROMORPHONE 1 MG INJ 2 MG IV (21:48)
[2024-07-15 21:51] LABS: Alanine Aminotransferase 22 IU/L (<35); Albumin Globulin Ratio 1.7 (1.0-2.8); Alkaline Phosphatase 63 U/L (38-126); Aspartate Aminotransferase 40 IU/L (14-36); BUN Creatinine Ratio 17.9 (6-22); Bilirubin Total 0.6 mg/dL (0.2-1.3); Blood Urea Nitrogen 12 mg/dL (7-17); Calcium 9.3 mg/dL (8.4-10.2); Carbon Dioxide 22 mmol/L (22-32); Chloride 106 mmol/L (98-107); Estimated Glomerular Filt Rate > 60 mL/min (>60); Globulin 2.9 g/dL (1.7-4.1); Glucose 98 mg/dL (70-99); HEMOLYSIS < 15 (0-50); Lipase 92 U/L (23-300); Potassium 3.9 mmol/L (3.4-5.1); Sodium 142 mmol/L (137-145); Total Protein 7.9 g/dL (6.3-8.2)
[2024-07-15 21:54] VITALS: BP 118/93; PULSE 98; O2SAT 98
--- NOTE | 2024-07-15 21:54 | ED.FEMALEGU ---
HPI - Female Genitourinary General Chief complaint: Urogenital-Female Stated complaint: left back quad px Time Seen by Provider: 07/15/24 20:42 Source: patient Mode of arrival: Ambulatory History of Present Illness HPI Narrative: 44-year-old female history of kidney stone presents tonight with sudden onset left flank pain radiating to left groin area that was described as sharp and stabbing along with nausea and vomiting. Patient reports passing close to 100 stones in her lifetime which were mostly composed of uric acid. She was recently seen by URO with CT kub completed a few weeks ago. She was able to send a stone for Uro for analysis and has a upcoming appt on July 27. Other than what is stated 14 point review of system is negative. Related Data Home Medications Medication Instructions Recorded Confirmed cholecalciferol (vitamin D3) 10 10 mcg PO BID 06/07/24 06/07/24 mcg (400 unit) capsule cyanocobalamin (vitamin B-12) 1,000 mcg PO BID 06/07/24 06/07/24 1,000 mcg capsule dextroamphetamine-amphetamine ER 15 mg PO QAM 06/07/24 06/07/24 15 mg 24hr capsule,extend release multivitamin 1 tab PO DAILY 06/07/24 06/07/24 Previous Rx's Medication Instructions Recorded hydrocodone 5 mg-acetaminophen 325 1 tab PO Q6H PRN pain #20 tabs 07/16/24 mg tablet sulfamethoxazole 800 1 tab PO Q12H #20 tabs 07/16/24 mg-trimethoprim 160 mg tablet (Bactrim DS) tamsulosin 0.4 mg capsule (Flomax) 0.4 mg PO DAILY #30 caps 07/16/24 Allergies Allergy/AdvReac Type Severity Reaction Status Date / Time prochlorperazine Allergy Intermediate Hallucinati Verified 07/15/24 20:35 ng Review of Systems Review of Systems ROS Unobtainable: All systems reviewed & are unremarkable except as noted in HPI and below Patient History Medical History History of asthma Depression Anxiety Exercise-induced asthma Kidney stone on right side Severe dysmenorrhea Surgical History History of partial hysterectomy Hx of lithotripsy Hx of appendectomy Hx of laparoscopy (10/31/17) Status post loop electrosurgical excision procedure (LEEP) of cervix Status post appendectomy History of tonsillectomy History of third molar tooth extraction Family History Grandmother Cancer Diabetes mellitus Father Kidney stones Exam Narrative Exam Narrative: GENERAL: [44] year old patient appears stated age. Well-developed patient, in mild distress. HEAD: Atraumatic. Normocephalic. EYES: Pupils equal round and reactive. Extraocular motions intact. No scleral icterus. No injection or drainage. NECK: Trachea midline. Non tender CARDIOVASCULAR: Regular rate and rhythm without murmurs, gallops, or rubs. RESPIRATORY: Clear to auscultation. Breath sounds equal bilaterally. No wheezes, rales, or rhonchi. GASTROINTESTINAL: Abdomen soft, non-tender, nondistended. EXTREMITIES: No edema or joint tenderness. BACK: Nontender without deformity or crepitance. L CVA TTP NEURO: AOx3. CN2-12 intact SKIN: No rash or erythema of visible areas Initial Vital Signs Initial Vital Signs: Vital Signs Temperature 97.5 F L 07/15/24 20:35 Pulse Rate 97 H 07/15/24 20:35 Respiratory Rate 18 07/15/24 20:35 Blood Pressure 135/84 07/15/24 20:35 Pulse Oximetry 95 07/15/24 20:35 Oxygen Delivery Method Room Air 07/15/24 20:35 Course Orders Ordered: ED Orders 07/15/24 21:00 Complete Blood Count AUTO DIFF Stat Comprehensive Metabolic Panel Stat Lipase Stat 07/15/24 21:10 EKG-12 Lead Stat 07/15/24 21:55 US renal complete Stat 07/15/24 21:59 CT abdomen pelvis wo con Stat Ondansetron HCl (Ondansetron 4 Mg/2 Ml Inj) 4 mg IV NOW PRN PRN Reason: Nausea And Vomiting Last Admin: 07/15/24 21:16 Dose: 4 mg Documented By: JUSTINO Ondansetron HCl (Ondansetron 4 Mg Odt) 4 mg PO NOW PRN PRN Reason: Nausea And Vomiting Discontinued Medications Hydromorphone HCl (Hydromorphone 1 Mg Inj) 2 mg IV NOW ONE Stop: 07/15/24 21:47 Last Admin: 07/15/24 21:48 Dose: 2 mg Documented By: JUSTINO Lactated Ringer's (Lactated Ringers) 1,000 mls @ 1,000 mls/hr IV BOLUS ONE Stop: 07/15/24 22:23 Last Infusion: 07/15/24 22:38 Dose: Infused Documented By: Admin: 07/15/24 21:35 Dose: 1,000 mls/hr Documented By: JUSTINO Ketorolac Tromethamine (Ketorolac 30 Mg/Ml Vial) 15 mg IV NOW ONE Stop: 07/15/24 21:24 Last Admin: 07/15/24 21:27 Dose: 15 mg Documented By: JUSTINO Vital Signs Vital signs: Vital Signs - 8 hr 07/15/24 20:35 07/15/24 21:54 07/15/24 21:54 Temperature 97.5 F L Pulse Rate 97 H 98 H Respiratory Rate 18 Blood Pressure 135/84 118/93 H Pulse Oximetry 95 98 Oxygen Delivery Method Room Air 07/15/24 22:00 07/15/24 22:00 07/15/24 22:30 Temperature Pulse Rate 89 88 Respiratory Rate 18 Blood Pressure 129/93 H Pulse Oximetry 99 98 Oxygen Delivery Method 07/15/24 23:00 Temperature Pulse Rate 81 Respiratory Rate 16 Blood Pressure 122/80 Pulse Oximetry 98 Oxygen Delivery Method MDM - Female Genitourinary Lab Data 07/15/24 21:00 07/15/24 21:00 Labs: Lab Results 07/15/24 Range/Units 21:00 WBC 7.8 (4.5-11.0) X10^3/uL RBC 4.29 (4.0-5.2) X10^6/uL Hgb 14.4 (12.0-16.0) g/dL Hct 41.2 (36-46) % MCV 96.0 (80-100) fL MCH 33.5 (26-34) PG MCHC 34.9 (30-36) % RDW 13.6 (11.6-14.8) % Plt Count 355 (150-400) X10^3/uL Neut % (Auto) 67.7 (50-75) % Lymph % (Auto) 23.1 L (25-40) % [place] % (Auto) 7.0 (3-14) % Eos % (Auto) 0.4 L (2-4) % Baso % (Auto) 1.8 (0-2) % Neut # (Auto) 5300 (1453-0128) /uL Lymph # (Auto) 1800 (1589-5416) /uL [place] # (Auto) 500 (0-900) /uL Eos # (Auto) 0 (0-450) /uL Baso # (Auto) 100 (0-100) /uL Sodium 142 (137-145) mmol/L Potassium 3.9 (3.4-5.1) mmol/L Chloride 106 (98-107) mmol/L Carbon Dioxide 22 (22-32) mmol/L BUN 12 (7-17) mg/dL Creatinine 0.67 (0.52-1.04) mg/dL Estimated GFR > 60 (>60) mL/min BUN/Creatinine Ratio 17.9 (6-22) Glucose 98 (70-99) mg/dL Calcium 9.3 (8.4-10.2) mg/dL Total Bilirubin 0.6 (0.2-1.3) mg/dL AST 40 H (14-36) IU/L ALT 22 (<35) IU/L Alkaline Phosphatase 63 (38-126) U/L Total Protein 7.9 (6.3-8.2) g/dL Albumin 5.0 (3.5-5.0) g/dL Globulin 2.9 (1.7-4.1) g/dL Albumin/Globulin Ratio 1.7 (1.0-2.8) Lipase 92 (23-300) U/L Urine Dip Bedside Urine Glucose Negative Bedside Urine Bilirubin - Negative Bedside Urine Ketone - Negative Urine Specific [place] 1.010 Bedside Urine Occult Blood - Negative Bedside Urine pH 6 Bedside Urine Protein - Negative Bedside Urine Urobilinogen - Negative Bedside Urine Nitrite - Negative Bedside Urine Leukocytes - Negative Esterase Imaging Data CT scan - abdomen/pelvis: Radiologist's Impression: [address] [address] [address] Scan Report Signed Patient: Jeana Almeida MR#: [id number] : 1980 Acct:[id number] Age/Sex: 44 / F Date of Service: 07/15/24 Loc: ED Accession Number: [id number] Procedure: CT abdomen pelvis wo con Ordering Provider: Jonas Jacques D.O. PROCEDURE: CT ABDOMEN PELVIS WO CON INDICATIONS: L flank pain/ hx of kidney stone TECHNIQUE: Axial sections were acquired from the lung bases to the pubic symphysis. Coronal and sagittal reformats were performed. For radiation dose reduction, the following was used: automated exposure control, adjustment of mA and/or kV according to patient size. COMPARISON: None. FINDINGS: Image quality: Diagnostic. Lower Chest: No significant findings. URINARY: Right Kidney: Multiple renal calculi, largest of which measures up to 7 mm at the interpolar region. No hydronephrosis. Right Ureter: No hydroureter. Left Kidney: Multiple renal calculi, largest of which measures up to 6 mm at the interpolar region. No hydronephrosis. Left Ureter: No hydroureter. Bladder: Normal wall thickness. No stones. ABDOMEN: Liver: No contour-deforming solid mass. Gallbladder: No radiopaque gallstones or wall thickening. Biliary ducts: No biliary dilation. Pancreas: No ductal dilation. Spleen: Size is within normal limits. Adrenal Glands: No adrenal nodules. Stomach and Bowel: Normal colonic caliber, without significant wall thickening. Peritoneum: No abnormal intraperitoneal fluid. No free air. Ventral Wall: No hernia. Abdominal Nodes: No enlarged retroperitoneal or mesenteric lymph nodes. Vessels: Aorta and inferior vena cava are normal in size. PELVIS: Pelvic Organs: Unremarkable. Pelvic Nodes: Unremarkable. Miscellaneous: No inguinal hernias are seen. Bones: Unremarkable. IMPRESSION: Numerous bilateral nonobstructing renal calculi. No obstructing ureteral calculus or hydronephrosis. MDM Narrative Medical decision making narrative: All lab work, vital signs, nurse triage note, medication list, all imaging studies and all previous ER visits reviewed. Pt given LR 1L bolus, toradol IV, Dilaudid IV, zofran IV. Differential diagnosis includes kidney stone, kidney infection, UTI, diverticulitis, pancreatitis. DC home on Bactrim, [place], and flomax rx. Follow up with Urology at your upcoming appointment. Discharge Plan Departure Patient Disposition: Home Clinical Impression: Pyelonephritis Instructions: DI for Kidney Infection Activity Restrictions/Additional Instructions: Return with new or worsening symptoms. Take your medicines as directed. Follow Up with urology your upcoming appointment Prescriptions: New sulfamethoxazole-trimethoprim [Bactrim DS] 800-160 mg tablet 1 tab PO Q12H Qty: 20 0RF hydrocodone-acetaminophen 5-325 mg tablet 1 tab PO Q6H PRN (Reason: pain) Qty: 20 0RF tamsulosin [Flomax] 0.4 mg capsule 0.4 mg PO DAILY Qty: 30 0RF No Action dextroamphetamine-amphetamine 15 mg capsule,extended release 24hr 15 mg PO QAM cholecalciferol (vitamin D3) 10 mcg (400 unit) capsule 10 mcg PO BID cyanocobalamin (vitamin B-12) 1,000 mcg capsule 1,000 mcg PO BID multivitamin Tablet 1 tab PO DAILY Referrals: Lilia Evans MD [Primary Care Provider] - Stand Alone Forms: Patient Portal/API/Survey
--- NOTE | 2024-07-15 21:59 | DI.CT.S_ITS ---
PROCEDURE: CT ABDOMEN PELVIS WO CON INDICATIONS: L flank pain/ hx of kidney stone TECHNIQUE: Axial sections were acquired from the lung bases to the pubic symphysis. Coronal and sagittal reformats were performed. For radiation dose reduction, the following was used: automated exposure control, adjustment of mA and/or kV according to patient size. COMPARISON: None. FINDINGS: Image quality: Diagnostic. Lower Chest: No significant findings. URINARY: Right Kidney: Multiple renal calculi, largest of which measures up to 7 mm at the interpolar region. No hydronephrosis. Right Ureter: No hydroureter. Left Kidney: Multiple renal calculi, largest of which measures up to 6 mm at the interpolar region. No hydronephrosis. Left Ureter: No hydroureter. Bladder: Normal wall thickness. No stones. ABDOMEN: Liver: No contour-deforming solid mass. Gallbladder: No radiopaque gallstones or wall thickening. Biliary ducts: No biliary dilation. Pancreas: No ductal dilation. Spleen: Size is within normal limits. Adrenal Glands: No adrenal nodules. Stomach and Bowel: Normal colonic caliber, without significant wall thickening. Peritoneum: No abnormal intraperitoneal fluid. No free air. Ventral Wall: No hernia. Abdominal Nodes: No enlarged retroperitoneal or mesenteric lymph nodes. Vessels: Aorta and inferior vena cava are normal in size. PELVIS: Pelvic Organs: Unremarkable. Pelvic Nodes: Unremarkable. Miscellaneous: No inguinal hernias are seen. Bones: Unremarkable. IMPRESSION: Numerous bilateral nonobstructing renal calculi. No obstructing ureteral calculus or hydronephrosis. Approved by: Miguel Sim M.D. on 07/15/2024 at 22:33
[2024-07-15 22:00] VITALS: BP 129/93; PULSE 89; RESP 18; O2SAT 99
[2024-07-15 22:30] VITALS: PULSE 88; O2SAT 98
[2024-07-15 23:00] VITALS: BP 122/80; PULSE 81; RESP 16; O2SAT 98
[2024-07-16] MEDS: cefTRIAXone 1,000 MG in SODIUM CHLORIDE 0.9% 100 ML 200 MG IV (00:22)
[2024-07-16 01:13] VITALS: BP 111/70; PULSE 76; RESP 16; O2SAT 98
[2024-07-16] MEDS: HYDROCODONE/ACET 5/325 PREPACK 1 BOTTLE MISC (01:22)
== END 2024-07-16 01:27 | disposition home or self-care (01) ==
PROVIDERS: Emergency Provider Family Medicine; PCP Family Medicine
DX: N12 Tubulo-interstitial nephritis, not specified as acute or chronic (principal); Z87.442 Personal history of urinary calculi
CPT/HCPCS: 36415; 74176; 80053; 81003; 83690; 85025; 96361; 96365; 96375; 99284; J0696; J1171; J1885; J2405

== ENCOUNTER → 2024-07-19 12:13 | Outpatient (CLI) | payer OTHER, SELFPAY | LOC: LAB 12:14 | PROVIDERS: PCP Family Medicine; Visit Provider Urology | DX: N20.0 Calculus of kidney (principal); Z87.442 Personal history of urinary calculi | CPT/HCPCS: 82365 ==

== ENCOUNTER 2025-03-02 21:36 | Emergency (ER) | payer OTHER, SELFPAY ==
--- OUTSIDE RECORDS SUMMARY | 2025-03-02 21:38 | XMS_ITS | Encounter Summary ---
Author Organization [facility] Address [address] [place] [id number] Care Team Providers Care Career Based Intervention Coordinator Name Role Phone Vera Deleon Primary Care Provider Reason for Referral * Radiology (Routine) - Authorized Specialty Diagnoses / Procedures Referred By Contvincent t Referred To Contact Radiology Diagnoses Personal history of urinary calculi Procedures REF RADIOLOGY CT ABD & PELVIS W/O CONTRST 1+ BODY REGNS CT ABD & PELVIS W/O CONTRAST Emiliana Pepe [facility] UROLOGY [address] [place] [phone] [phone] fax: Referral ID Status Reason Start Date Expiration Date Visits Requested Visits Authorized [id number] Authorized Itemized Services 06/08/2024 12/09/2024 4 4 Encounter Details Date Type Department Care Team ([facility] st Contact Info) Description 06/08/2024 Community Orders Non [facility] Provider Pepe Hopson [facility] UROLOGY [address] [place] [phone] Personal history of urinary calculi (Primary Dx) Social History Tobacco Use Types Packs/Day Years Used Date Smoking Tobacco: Never Assessed Comments Unknown Sex and Gender Information Value Date Recorded Sex Assigned at Not on file Legal Sex Female 3:48 PM PDT Gender Identity Not on file Sexual Orientation Not on file documented as of this encounter Plan of Treatment Not on file documented as of this encounter Visit Diagnoses Diagnosis Personal history of urinary calculi- Primary documented in this encounter Care Teams Career Based Intervention Coordinator Relationship Specialty Start Date End Date Vera Deleon [address], [place] [address] PCP - General 08/23/23 documented as of this encounter
[2025-03-02 21:54] VITALS: BP 140/105
[2025-03-02 21:55] VITALS: PULSE 125; O2SAT 96
[2025-03-02 21:57] VITALS: BP 140/105; PULSE 122; RESP 18; TEMP 36.8; O2SAT 96; BMI 20.5
[2025-03-02 22:00] VITALS: PULSE 127; O2SAT 96
--- NOTE | 2025-03-02 22:00 | PC.NURSE ---
hx of kidney stones states she has passed 2 stones in the last 2 wks, tonight with sudden onset of sharp pain in the right flank area that radiates into the rlq with hematuria, pt states she is supposed to set up a time to have her stones blasted out but she has been too busy
--- NOTE | 2025-03-02 22:07 | DI.CT.S_ITS ---
PROCEDURE: CT KIDNEY URETER BLADDER (KUB) INDICATIONS: kidney stone right side TECHNIQUE: CT of the abdomen and pelvis was obtained without intravenous contrast. Coronal and sagittal reformats were performed. For radiation dose reduction, the following was used: automated exposure control, adjustment of mA and/or kV according to patient size. COMPARISON: [facility], CT, CT KIDNEY URETER BLADDER (KUB), 12/19/2020, 23:37. FINDINGS: Image quality: Diagnostic. Lower Chest: No significant findings. ABDOMEN: Liver: No contour-deforming mass. Gallbladder: No radiopaque gallstones or wall thickening. Biliary ducts: No biliary dilation. Pancreas: No ductal dilation. Spleen: Size is within normal limits. Adrenal Glands: No adrenal nodules. Kidneys and Ureters: No hydronephrosis. No contour-deforming mass. Numerous bilateral nonobstructing renal stones measuring up to approximately 6 mm in the left upper pole and 8 mm in the right interpolar kidney (4/35). No obstructing stone or ureteral stone is visualized. Stomach and Bowel: Normal colonic caliber, without significant wall thickening. Peritoneum: No abnormal intraperitoneal fluid. No free air. Ventral Wall: No significant hernia. Abdominal Nodes: No retroperitoneal or mesenteric adenopathy by size criteria. Vessels: Aorta and inferior vena cava are normal in size. PELVIS: Pelvic Organs: Unremarkable. Bladder: Unremarkable. Pelvic Nodes: No enlarged lymph nodes. Bones: No aggressive osseous abnormality. IMPRESSION: No hydronephrosis or obstructing renal stone. Numerous non obstructing stones in the bilateral kidneys as above. Dictated by: Marc Jeong M.D. on 03/03/2025 at 0:06 Approved by: Marc Jeong M.D. on 03/03/2025 at 0:09
--- NOTE | 2025-03-02 22:08 | ED.BACK ---
HPI - Back Pain/Injury General Chief Complaint: Back Pain/Injury Stated Complaint: kidney stone px, x1 hr Time Seen by Provider: 03/02/25 21:51 Source: patient History of Present Illness HPI Narrative: 44-year-old female with a history of multiple kidney stones who just passed two 8 mm kidney stones in the past 2 weeks and just getting established with Urology here with Dr. Hopson presents with acute right CVA tenderness and right lower pelvic pain in the past hour. Patient denies any other symptoms. Related Data Home Medications ?Medication ?Instructions ?Recorded ?Confirmed cholecalciferol (vitamin D3) 10 10 mcg PO BID 06/07/24 06/07/24 mcg (400 unit) capsule cyanocobalamin (vitamin B-12) 1,000 mcg PO BID 06/07/24 06/07/24 1,000 mcg capsule dextroamphetamine-amphetamine ER 15 mg PO QAM 06/07/24 06/07/24 15 mg 24hr capsule,extend release multivitamin 1 tab PO DAILY 06/07/24 06/07/24 Previous Rx's ?Medication ?Instructions ?Recorded hydrocodone 5 mg-acetaminophen 325 1 tab PO Q6H PRN pain #20 tabs 07/16/24 mg tablet sulfamethoxazole 800 1 tab PO Q12H #20 tabs 07/16/24 mg-trimethoprim 160 mg tablet (Bactrim DS) tamsulosin 0.4 mg capsule (Flomax) 0.4 mg PO DAILY #30 caps 07/16/24 hydrocodone 5 mg-acetaminophen 325 1 tab PO Q4-6H PRN pain #20 tabs 03/03/25 mg tablet Allergies Allergy/AdvReac Type Severity Reaction Status Date / Time prochlorperazine Allergy Intermediate Hallucinati Verified 03/02/25 21:57 ng Review of Systems Review of Systems ROS Unobtainable: All systems reviewed & are unremarkable except as noted in HPI and below Patient History Medical History History of asthma Depression Anxiety Exercise-induced asthma Kidney stone on right side Severe dysmenorrhea Surgical History History of partial hysterectomy Hx of lithotripsy Hx of appendectomy Hx of laparoscopy (10/31/17) Status post loop electrosurgical excision procedure (LEEP) of cervix Status post appendectomy History of tonsillectomy History of third molar tooth extraction Family History Grandmother Cancer Diabetes mellitus Father Kidney stones Social History marital status: number of children: 1 household members: family Smoking Status: Never smoker alcohol intake: current substance use type: does not use caffeine: Yes Type(s) of exercise: weight lifting and running frequency: 3-4 times per week duration: 45-60 minutes/day Smoking Status: Never smoker alcohol intake frequency: a few times a month Exam Narrative Exam Narrative: General: Patient appears to be in no acute distress, acting appropriately Head: normocephalic, atraumatic, HEENT: Pupils equal round reactive, eyes tracking well, neck supple, no JVD Heart: regular rate and rhythm, no murmurs, rubs, or gallops heard Lungs: clear to auscultation, no adventitious sounds Abdomen: soft ,pos right cva tenderness, nondistended, positive bowel sounds, pos pain with palpation in right lower pelvic region Neurological: no focal neurological signs, moving all extremities well, alert and oriented x3, Psych: good judgment ,good insight, mood is normal. Initial Vital Signs Initial Vital Signs: Vital Signs Blood Pressure 140/105 H 03/02/25 21:54 Course Orders Ordered: ED Orders 03/02/25 21:55 Complete Blood Count AUTO DIFF Stat Comprehensive Metabolic Panel Stat Lipase Stat 03/02/25 22:01 EKG-12 Lead Stat 03/02/25 22:07 CT kidney ureter bladder (KUB) Stat Discontinued Medications Hydrocodone Bitart/Acetaminophen (Hydrocodone/Acet 5/325 Prepack) 1 bottle MISC DIRECTED ONE Stop: 03/03/25 00:38 Last Admin: 03/03/25 00:45 Dose: 1 bottle Documented By: YAZMIN Hydromorphone HCl (Hydromorphone 1 Mg/Ml Syringe) 1 mg IV NOW ONE Stop: 03/02/25 22:03 Last Admin: 03/02/25 22:11 Dose: 1 mg Documented By: YAZMIN Hydromorphone HCl (Hydromorphone 1 Mg/Ml Syringe) 1 mg IV NOW ONE Stop: 03/02/25 22:36 Last Admin: 03/02/25 22:39 Dose: 1 mg Documented By: YAZMIN Hydromorphone HCl (Hydromorphone 1 Mg/Ml Syringe) 1 mg IV NOW ONE Stop: 03/02/25 23:13 Last Admin: 03/02/25 23:18 Dose: 1 mg Documented By: YAZMIN Sodium Chloride (Normal Saline 0.45%) 1,000 mls @ 1,000 mls/hr IV BOLUS ONE Stop: 03/02/25 23:02 Last Admin: 03/02/25 22:29 Dose: Not Given Documented By: YAZMIN Lactated Ringer's (Lactated Ringers) 1,000 mls @ 1,000 mls/hr IV BOLUS ONE Stop: 03/02/25 23:20 Last Infusion: 03/03/25 00:48 Dose: Infused Documented By: Admin: 03/02/25 22:30 Dose: 1,000 mls/hr Documented By: YAZMIN Ketorolac Tromethamine (Ketorolac 30 Mg/Ml Vial) 30 mg IV NOW ONE Stop: 03/02/25 22:03 Last Admin: 03/02/25 22:09 Dose: 30 mg Documented By: YAZMIN Ondansetron HCl (Ondansetron 4 Mg/2 Ml Inj) 4 mg IV NOW PRN PRN Reason: Nausea And Vomiting Last Admin: 03/02/25 22:13 Dose: 4 mg Documented By: YAZMIN Ondansetron HCl (Ondansetron 4 Mg Odt) 4 mg PO NOW PRN PRN Reason: Nausea And Vomiting Ondansetron HCl (Ondansetron 4 Mg/2 Ml Inj) 4 mg IV NOW ONE Stop: 03/02/25 23:32 Last Admin: 03/02/25 23:33 Dose: 4 mg Documented By: YAZMIN Reevaluation(s) Reevaluation #1: Pain improved some after some Toradol and 3 doses of Dilaudid. Vital Signs Vital signs: Vital Signs - 8 hr 03/02/25 21:54 03/02/25 21:55 03/02/25 21:57 Temperature 98.2 F Pulse Rate 125 H 122 H Respiratory Rate 18 Blood Pressure 140/105 H 140/105 H Pulse Oximetry 96 96 Oxygen Delivery Method Room Air 03/02/25 22:00 03/03/25 00:26 03/03/25 00:27 Temperature Pulse Rate 127 H Respiratory Rate Blood Pressure 134/81 Pulse Oximetry 96 100 Oxygen Delivery Method MDM - Back Pain/Injury Lab Data 03/02/25 21:55 03/02/25 21:55 Labs: Lab Results 03/02/25 Range/Units 21:55 WBC 7.5 (4.5-11.0) X10^3/uL RBC 4.41 (4.0-5.2) X10^6/uL Hgb 14.8 (12.0-16.0) g/dL Hct 42.3 (36-46) % MCV 95.8 (80-100) fL MCH 33.5 (26-34) PG MCHC 34.9 (30-36) % RDW 13.1 (11.6-14.8) % Plt Count 373 (150-400) X10^3/uL Neut % (Auto) 57.3 (50-75) % Lymph % (Auto) 33.9 (25-40) % [place] % (Auto) 7.5 (3-14) % Eos % (Auto) 0.8 L (2-4) % Baso % (Auto) 0.5 (0-2) % Neut # (Auto) 4300 (6812-1493) /uL Lymph # (Auto) 2600 (5979-2424) /uL [place] # (Auto) 600 (0-900) /uL Eos # (Auto) 100 (0-450) /uL Baso # (Auto) 0 (0-100) /uL Sodium 146 H (137-145) mmol/L Potassium 4.0 (3.4-5.1) mmol/L Chloride 110 H (98-107) mmol/L Carbon Dioxide 20 L (22-32) mmol/L BUN 15 (7-17) mg/dL Creatinine 0.77 (0.52-1.04) mg/dL Estimated GFR > 60 (>60) mL/min BUN/Creatinine Ratio 19.5 (6-22) Glucose 109 H (70-99) mg/dL Calcium 9.6 (8.4-10.2) mg/dL Total Bilirubin 0.3 (0.2-1.3) mg/dL AST 33 (14-36) IU/L ALT 20 (<35) IU/L Alkaline Phosphatase 50 (38-126) U/L Total Protein 8.8 H (6.3-8.2) g/dL Albumin 5.3 H (3.5-5.0) g/dL Globulin 3.5 (1.7-4.1) g/dL Albumin/Globulin Ratio 1.5 (1.0-2.8) Lipase 122 (23-300) U/L Urine Dip Bedside Urine Glucose Negative Bedside Urine Bilirubin - Negative Bedside Urine Ketone - Negative Urine Specific [place] 1.010 Bedside Urine Occult Blood + Bedside Urine pH 6.0 Bedside Urine Protein - Negative Bedside Urine Urobilinogen - Negative Bedside Urine Nitrite - Negative Bedside Urine Leukocytes - Negative Esterase Imaging Data CT scan - abdomen/pelvis: Radiologist's Impression: No hydronephrosis or obstructing renal stone. Numerous non obstructing stones in the bilateral kidneys as above. MDM Narrative Medical decision making narrative: 44-year-old female with history of multiple renal stones again presents with sudden right CVA tenderness and right lower pelvic pain. CT abdomen and pelvis did reveal multiple bilateral nonobstructing renal stones. Patient is aware and has urology follow up. Her pain was controlled after several doses of Dilaudid and Toradol. Patient also given some IV fluids. She will follow up with Urology as planned and sooner if pain is not tolerated. Discharge Plan Departure Patient Disposition: Home Clinical Impression: Bilateral renal stones Instructions: Kidney Stones -- Adult Activity Restrictions/Additional Instructions: Take meds as prescribed and push fluids as much as possible. Follow up with Urology as planned. Can come back sooner if pain is not controlled. Prescriptions: New hydrocodone-acetaminophen 5-325 mg tablet 1 tab PO Q4-6H PRN (Reason: pain) Qty: 20 0RF No Action sulfamethoxazole-trimethoprim [Bactrim DS] 800-160 mg tablet 1 tab PO Q12H Qty: 20 0RF hydrocodone-acetaminophen 5-325 mg tablet 1 tab PO Q6H PRN (Reason: pain) Qty: 20 0RF tamsulosin [Flomax] 0.4 mg capsule 0.4 mg PO DAILY Qty: 30 0RF dextroamphetamine-amphetamine 15 mg capsule,extended release 24hr 15 mg PO QAM cholecalciferol (vitamin D3) 10 mcg (400 unit) capsule 10 mcg PO BID cyanocobalamin (vitamin B-12) 1,000 mcg capsule 1,000 mcg PO BID multivitamin Tablet 1 tab PO DAILY Referrals: Lilia Evans MD [Primary Care Provider, Family Practice] Stand Alone Forms: Patient Portal/API
[2025-03-02 22:09] LABS: Add Manual Diff / Slide Review NO; Hematocrit 42.3 % (36-46); Hemoglobin 14.8 g/dL (12.0-16.0); Lymphocytes Absolute Auto 2600 /uL (1100-4500); Mean Corpuscular HGB Conc 34.9 % (30-36); Mean Corpuscular Hemoglobin 33.5 PG (26-34); Mean Corpuscular Volume 95.8 fL (80-100); Platelet Count 373 X10^3/uL (150-400)
[2025-03-02] MEDS: KETOROLAC 30 MG/ML VIAL IV (22:09)
[2025-03-02] MEDS: ONDANSETRON 4 MG/2 ML INJ IV ×2 (22:13→23:33)
[2025-03-02 22:16] LABS: Alanine Aminotransferase 20 IU/L (<35); Albumin 5.3 g/dL (3.5-5.0); Albumin Globulin Ratio 1.5 (1.0-2.8); Alkaline Phosphatase 50 U/L (38-126); Blood Urea Nitrogen 15 mg/dL (7-17); Calcium 9.6 mg/dL (8.4-10.2); Carbon Dioxide 20 mmol/L (22-32); Chloride 110 mmol/L (98-107); Estimated Glomerular Filt Rate > 60 mL/min (>60); Globulin 3.5 g/dL (1.7-4.1); Glucose 109 mg/dL (70-99); HEMOLYSIS < 15 (0-50); Lipase 122 U/L (23-300); Potassium 4.0 mmol/L (3.4-5.1); Sodium 146 mmol/L (137-145); Total Protein 8.8 g/dL (6.3-8.2)
[2025-03-02] MEDS: LACTATED RINGERS 1,000 ML 1000 ML IV (22:30)
[2025-03-03 00:26] VITALS: O2SAT 100
[2025-03-03 00:27] VITALS: BP 134/81
== END 2025-03-03 00:57 | disposition home or self-care (01) ==
PROVIDERS: Emergency Provider Family Medicine; PCP Family Medicine
DX: N20.0 Calculus of kidney (principal); R39.851 Costovertebral (angle) tenderness, right side
CPT/HCPCS: 36415; 74176; 80053; 81003; 83690; 85025; 96361; 96374; 96375; 96376; 99284; J1171; J1885; J2405; J7120